=== PATIENT | female | born 1985 | race Hispanic/Latino ===

== ENCOUNTER → 2018-04-10 12:06 | Outpatient (CLI) | payer OTHER, MEDICAID, SELFPAY ==
--- NOTE | 2018-04-10 | DI.MRI.S_ITS ---
PROCEDURE: MR LUMBAR SPINE WO CON INDICATIONS: LOW BACK PAIN TECHNIQUE: Noncontrast sagittal T1 spin echo and T2 fast echo, sagittal STIR, axial T1 and T2 fast spin echo through the lumbar spine. In cases with scoliosis, additional coronal T2 fast spin echo may be performed. COMPARISON: None. FINDINGS: Image quality: Excellent. Alignment and Curvature: There is normal bony alignment. Bone Marrow: Reactive endplate change is noted adjacent to the L5-S1 disc. No acute vertebral body compression fractures. Spinal Cord: Conus medullaris terminates at the L1 level. Visualized cord demonstrates normal signal and size. Paraspinous Soft Tissues: No paravertebral masses. L1-L2: Normal appearance. L2-L3: Normal appearance. L3-L4: Normal appearance. L4-L5: Loss of disc signal. Mild, diffuse disc bulge. Mild bilateral facet hypertrophy. No central stenosis. No neural foraminal narrowing. No neural impingement. Focal high intensity zone noted in the posterior annulus compatible with the fissure. L5-S1: Loss of disc signal and height. Mild, diffuse disc bulge. Mild bilateral facet hypertrophy. No central stenosis. Moderate bilateral neural foraminal narrowing. No neural impingement. IMPRESSION: 1. Moderate L5-S1 degenerative disc disease. Mild L4-L5 degenerative disc disease. 2. Mild L4-L5 and L5-S1 facet arthropathy. 3. No central stenosis. 4. Moderate bilateral L5-S1 neural foraminal narrowing. 5. No neural impingement. 6. L4-L5 disc annulus fissure. Dictated by: Malina Nowak MD, PhD on 04/10/2018 at 16:36 Approved by: Malina Nowak MD, PhD on 04/10/2018 at 16:40
== END ==
PROVIDERS: Family Provider Nurse Practitioner Family; PCP Nurse Practitioner Family; Visit Provider Physical Medicine & Rehabilitation Pain Medicine
DX: M54.5 Low back pain (principal); M51.36 Other intervertebral disc degeneration, lumbar region; M47.816 Spondylosis without myelopathy or radiculopathy, lumbar region
CPT/HCPCS: 72148

== ENCOUNTER → 2018-10-08 13:17 | Outpatient (CLI) | payer OTHER, MEDICAID, SELFPAY ==
--- NOTE | 2018-10-08 | DI.MG.S_ITS ---
BILATERAL DIGITAL DIAGNOSTIC MAMMOGRAM 3D/2D: 10/08/2018 CLINICAL: Left breast discharge. No prior exams were available for comparison. The tissue of both breasts is extremely dense, which lowers the sensitivity of mammography. There are benign appearing punctate and round skin calcifications in the lower right breast at anterior depth, which are demonstrated as being within the skin on tomosynthesis slice /63 of the RSCCBTO series. There is no underlying mammographic abnormality. There is no left retroareolar mass or abnormality. IMPRESSION: INCOMPLETE: NEEDS ADDITIONAL IMAGING EVALUATION No mammographic abnormality to correlate with patient's reported left nipple discharge. Targeted diagnostic retroareolar ultrasound recommended for further evaluation, which will be performed immediately following this exam. This exam was interpreted at Station ID: [id number]. NOTE: For mammograms, a report in lay terms will be sent to the patient. Approximately 15% of breast malignancies will not be visualized mammographically. In the management of a palpable breast mass, a negative mammogram must not discourage biopsy of a clinically suspicious lesion. Electronically Signed By: Fco Myles M.D. ecl/:10/08/2018 14:36:56 letter sent: Additional Imaging Needed ACR BI-RADS Category 0: Incomplete [id number]
--- NOTE | 2018-10-08 | DI.US.S_ITS ---
LIMITED ULTRASOUND OF LEFT BREAST: 10/08/2018 CLINICAL: Nipple discharge, left breast, not bloody. Comparison is made to exam dated: 10/08/2018 [facility]. Real-time and Doppler ultrasound of the left breast retroareolar were performed. Bautista scale images of the real-time examination were reviewed. Targeted ultrasound of the left nipple and retroareolar region demonstrates no abnormality or mass. There is no focal duct dilitation. IMPRESSION: NEGATIVE 1) No sonographic abnormality of the left nipple/retroareolar region to explain patient's reported nipple discharge. Recommend clinical follow-up with the patient's referring provider for further evaluation and management. A breast MRI can be considered if there is continued clinical concern. 2) No sonographic evidence of malignancy in the imaged portions of the left breast. Annual screening mammography beginning at age 40 is recommended, unless earlier high-risk screening is warranted due to individual patient risk factors for the development of breast malignancy. The patient is advised to monitor her breasts and to return sooner for re-evaluation should anything grow or change. This exam was interpreted at Station ID: [id number]. Electronically Signed By: Fco Myles M.D. ecl/:10/08/2018 18:39:47 letter sent: Clinical Evaluation Ultrasound BI-RADS: 1 Negative
== END ==
PROVIDERS: PCP Family Medicine; Visit Provider Family Medicine
DX: R92.8 Other abnormal and inconclusive findings on diagnostic imaging of breast (principal); N64.52 Nipple discharge; N64.3 Galactorrhea not associated with childbirth
CPT/HCPCS: 76642; 77066; G0279

== ENCOUNTER 2019-08-04 08:15 | Emergency (ER) | payer OTHER, MEDICAID, SELFPAY ==
[2019-08-04 08:30] VITALS: BP 109/78; PULSE 83; RESP 18; TEMP 36.7; O2SAT 100; BMI 25.6
--- NOTE | 2019-08-04 08:44 | ED.URI ---
HPI - URI/Sore Throat General Chief Complaint: Upper Respiratory Symptoms Stated Complaint: flu like symptoms throwing past 3 days Time Seen by Provider: 08/04/19 08:19 Source: patient Mode of arrival: Family Vehicle Limitations: no limitations History of Present Illness HPI Narrative: Patient comes emergency department complaining of diarrhea for the last 3 days and vomiting that started today. 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 She states a couple have had fevers and diarrhea recently. Patient denies any shortness of breath or cough. No rhinorrhea. No body aches. She states she has some abdominal cramping. No dysuria. Patient states she is otherwise healthy. She reports vomiting about 5 times overnight and this morning, and states she was feeling a little lightheaded. She was concerned that she may be dehydrated, which was what led her to come to the emergency department. No other complaints at this time. Related Data Home Medications Medication Instructions Recorded Confirmed alprazolam 0.25 mg PO 08/04/19 sertraline 50 mg PO 08/04/19 tizanidine [Zanaflex] 4 mg PO TID 08/04/19 08/04/19 tramadol 50 mg PO BID 08/04/19 08/04/19 trazodone 50 mg PO BEDTIME 08/04/19 08/04/19 Previous Rx's Medication Instructions Recorded ondansetron 4 mg PO Q6H PRN #10 tab 08/04/19 Allergies Allergy/AdvReac Type Severity Reaction Status Date / Time No Known Drug Allergies Allergy Verified 08/04/19 08:58 Review of Systems Constitutional Constitutional: Denies chills, Denies fatigue, Denies fever(s), Denies frequent falls, Denies lethargy and Denies weakness Eyes Eyes: Denies change in vision, Denies eye discharge, Denies irritation and Denies loss of vision ENT Ears, Nose, Mouth, and Throat: Denies change in voice, Denies dizziness, Denies neck pain, Denies sore throat and Denies throat swelling Cardiovascular Cardiovascular: Denies chest pain, Denies irregular heart rhythm, Reports lightheadedness, Denies palpitations, Denies dyspnea, Denies dyspnea on exertion and Denies orthopnea Respiratory Respiratory: Denies cough, Denies dyspnea, Denies dyspnea on exertion and Denies wheezing Gastrointestinal Gastrointestinal: Denies abdominal pain, Denies change in bowel habits, Reports diarrhea, Reports nausea and Reports vomiting Genitourinary Genitourinary: Denies hematuria, Denies flank pain, Denies urinary incontinence and Denies urinary urgency Musculoskeletal Musculoskeletal: Denies back pain, Denies muscle weakness, Denies neck pain, Denies numbness and Denies tingling Integumentary/Breasts Skin/Breast: Denies pruritus, Denies erythema, Denies rash and Denies wounds Neurologic Neurologic: Denies behavioral changes, Denies confusion, Denies dizziness, Denies frequent falls, Denies loss of vision, Denies numbness, Denies tingling and Denies weakness Psychiatric Psychiatric: Denies anxiety, Denies behavioral changes, Denies confusion, Denies depression, Denies homicidal ideation and Denies suicidal ideation Endocrine Endocrine: Denies fatigue, Denies flushing and Denies palpitations Hematologic/Lymphatic Hematologic/Lymphatic: Denies easy bruising Allergic/Immunologic Allergic/Immunologic: Denies urticaria, Denies throat swelling and Denies wheezing Patient History Medical History Degenerative disc disease (Acute) Depression (Acute) Surgical History No pertinent past surgical history (Acute) Social History Smoking Status: Former smoker alcohol intake frequency: 0-2 drinks per day Substance Use Type: marijuana Exam Initial Vital Signs Initial Vital Signs: Vital Signs Temperature 98.1 F 08/04/19 08:30 Pulse Rate 83 08/04/19 08:30 Respiratory Rate 18 08/04/19 08:30 Blood Pressure 109/78 08/04/19 08:30 Pulse Oximetry 100 08/04/19 08:30 Const General: cooperative and well developed Nutritional Appearance: well nourished Orientation: alert, awake, oriented x3 and not confused [facility] Head: normocephalic and atraumatic Ears: external ears normal Nose: external nose normal and No nasal discharge Face and sinus: face symmetric and No dry mucous membranes Mouth: oral mucosae normal and moist mucous membranes Teeth and gingiva: dentition normal Eyes General: appearance normal, both eyes and all related structures Eyelids: eyelids normal Conjunctivae: conjunctivae normal Sclera: sclerae normal Pupils: PERRL EOM: EOM intact bilaterally Neck Neck: normal visual inspection, trachea midline, No lymphadenopathy, No midline deformity and No JVD Lymphatic: No lymphedema Chest Chest: normal inspection of the chest Resp Effort & Inspection: normal respiratory effort, able to speak in complete sentences, no respiratory distress and no use of accessory muscles Auscultation: clear to auscultation bilaterally, no rales, no rhonchi and no wheezes Cardio Rate: regular rate Rhythm: regular rhythm Heart Sounds: no click, no gallops, no murmurs and no rubs Pulses: normal peripheral pulses GI Inspection: non-distended Palpation: soft, no hepatosplenomegaly, No guarding, No pulsatile mass and No tender Back/Spine/Pelvis Back: No CVA tenderness Cervical Spine: cervical ROM normal and No pain with cervical ROM Thoracic/Lumbar Spine: thoracic and lumbar spine normal to inspection Skin General: no rashes or lesions noted, No jaundice and No petechiae Neuro General: alert, oriented x3, gait normal and no focal motor deficits Speech: speech normal Extrem General: full ROM, no clubbing, cyanosis or edema, no pedal edema and no calf tenderness Psych Appearance: well kempt Mental Status: mental status grossly normal Attitude: cooperative Thought Content: normal and suicidality Judgment: judgment good Course Course Course Narrative: Patient was worked up with urinalysis and test and treated with IV fluids and Zofran, and was found to be feeling quite a bit better after this. Urinalysis and test were unremarkable. I did not feel patient needed further workup at this time, as she had clearly been exposed to similar symptoms at work and was neither unstable nor febrile. We have discussed home management of the symptoms and I have prescribed antiemetics for her. We have discussed the usual indications for return. Orders Ordered: Discontinued Medications Sodium Chloride (Normal Saline 0.9%) 1,000 mls @ 1,000 mls/hr IV BOLUS ONE Stop: 08/04/19 09:43 Last Admin: 08/04/19 09:16 Dose: 1,000 mls/hr Documented by: CRISTEL Ondansetron HCl (Zofran) 4 mg IV NOW ONE Stop: 08/04/19 08:45 Last Admin: 08/04/19 09:16 Dose: 4 mg Documented by: CRISTEL Vital Signs Vital signs: Vital Signs - 8 hr 08/04/19 08:30 Temperature 98.1 F Pulse Rate 83 Respiratory Rate 18 Blood Pressure 109/78 Pulse Oximetry 100 MDM - URI/Sore Throat Medical Records Attestation: I reviewed the patient's medical records. Lab Data Attestation: I reviewed the patient's lab results. Labs: Point of Care Testing Test Results Negative Urine Dip Bedside Urine Glucose Negative Bedside Urine Bilirubin - Negative Bedside Urine Ketone - Negative Urine Specific [place] 1.010 Bedside Urine Occult Blood - Negative Bedside Urine pH 7.5 Bedside Urine Protein - Negative Bedside Urine Urobilinogen - Negative Bedside Urine Nitrite - Negative Bedside Urine Leukocytes - Negative Esterase Discharge Plan Departure Patient Disposition: Home Clinical Impression: Gastroenteritis Discharge Date/Time: 08/04/19 10:15 Instructions: DI for Viral Gastroenteritis -- Adult Prescriptions: New ondansetron 4 mg tablet,disintegrating 4 mg PO Q6H PRN (Reason: nausea and vomiting) Qty: 10 RF: 0 No Action alprazolam 0.25 mg tablet 0.25 mg PO RF: 0 tizanidine [Zanaflex] 4 mg tablet 4 mg PO TID RF: 0 tramadol 50 mg tablet 50 mg PO BID RF: 0 trazodone 50 mg tablet 50 mg PO BEDTIME RF: 0 sertraline 50 mg tablet 50 mg PO RF: 0 Referrals: Terrance Randall DO [Primary Care Provider] - Stand Alone Forms: Work/School Release
[2019-08-04] MEDS: SODIUM CHLORIDE 0.9% 1,000 ML 1000 ML IV (09:16)
[2019-08-04] MEDS: ONDANSETRON 4 MG/2 ML INJ IV (09:16)
[2019-08-04 09:56] VITALS: BP 104/79; PULSE 67; RESP 16; O2SAT 99
--- NOTE | 2019-09-01 19:41 | PC.NURSE ---
Patient received 1L NS which was started at 0844 on 08/04/19. Total of 1LNormal Saline infused and completed at 0943 on 08/04/19.
== END 2019-08-04 10:15 | disposition home or self-care (01) ==
PROVIDERS: Emergency Provider Emergency Medicine; PCP Family Medicine
DX: K52.9 Noninfective gastroenteritis and colitis, unspecified (principal)
CPT/HCPCS: 81003; 81025; 96361; 96374; 99283; 99284; J2405

== ENCOUNTER 2019-09-22 16:58 | Emergency (ER) | payer OTHER, MEDICAID, SELFPAY ==
[2019-09-22 17:18] VITALS: BP 145/78; PULSE 75; RESP 16; TEMP 37; O2SAT 99; BMI 26.9
--- NOTE | 2019-09-22 17:48 | DI.CT.S_ITS ---
PROCEDURE: CT ABDOMEN PELVIS W CON INDICATIONS: RLQ abd pain TECHNIQUE: After the administration of intravenous contrast, 5 mm thick sections acquired from the diaphragm to the symphysis. 5 mm coronal and sagittal reformats were acquired. For radiation dose reduction, the following was used: automated exposure control, adjustment of mA and/or kV according to patient size. COMPARISON: None. FINDINGS: Image quality: Excellent. ABDOMEN: Lung bases: Lung bases are clear. Heart size is normal. Solid organs: Liver is normal in size and enhancement. Gallbladder appears normal. Biliary system is non dilated. Pancreas enhances normally. Spleen is normal in size and enhancement. No adrenal nodules. Kidneys demonstrate normal size and enhancement, without hydronephrosis. Peritoneum and bowel: Bowel loops demonstrate normal wall thickness and caliber. No free fluid or air. Nodes and vessels: No retroperitoneal or mesenteric adenopathy by size criteria. Aorta and inferior vena cava are normal in size. Miscellaneous: No ventral hernias. PELVIS: Genitourinary: Bladder wall thickness is normal. Miscellaneous: No inguinal hernias or adenopathy. Bones: No suspicious bony lesions. No vertebral body compression fractures. IMPRESSION: No sign of ectopic or hemoperitoneum. Source of right lower quadrant abdominal pain is not identified. A normal or abnormal appendix could not be located. Dictated by: Tramaine Leone M.D. on 09/22/2019 at 19:07 Approved by: Tramaine Leone M.D. on 09/22/2019 at 19:08
--- NOTE | 2019-09-22 17:51 | ED.FEMALEGU ---
HPI - Female Genitourinary <Slime Snyder MD - Last Filed: 09/22/19 18:51> General Chief complaint: OB/Uterine Contractions Stated complaint: surgery on 8th ectopic preg, abdominal pain Time Seen by Provider: 09/22/19 17:07 Source: patient Mode of arrival: Ambulatory Limitations: no limitations History of Present Illness HPI Narrative: Patient comes emergency department complaining of ongoing right lower quadrant pain for the past couple of weeks. Patient states that she was found to have an ectopic which was thought to be on the right, but turned out to be on the left. The patient states that the mistake was not caught until she was already in surgery for a laparoscopic salpingectomy. At that time, her surgeon found that the ectopic was on the left and patient's opted to have nothing further done surgically and instead, for patient to have methotrexate. The reason for this is that the patient has had a prior ectopic on the right and has tubal scarring and a partial salpingectomy on that side. The patient states that her right-sided pain is been ongoing. She has been receiving methotrexate, and states that her OB has told her that her HCG levels are coming down. Related Data Home Medications Medication Instructions Recorded Confirmed alprazolam 0.25 mg PO 08/04/19 tizanidine [Zanaflex] 4 mg PO TID 08/04/19 08/04/19 tramadol 50 mg PO BID 08/04/19 09/22/19 trazodone 50 mg PO BEDTIME 08/04/19 08/04/19 oxycodone-acetaminophen 1 tab PO Q6H PRN 09/22/19 09/22/19 sertraline 100 mg PO DAILY 09/22/19 09/22/19 Previous Rx's Medication Instructions Recorded ondansetron 4 mg PO Q6H PRN #10 tab 08/04/19 hydrocodone-acetaminophen [[place]] 1 tab PO Q6H PRN #10 tab 09/22/19 Allergies Allergy/AdvReac Type Severity Reaction Status Date / Time No Known Drug Allergies Allergy Verified 09/22/19 17:18 Review of Systems <Slime Snyder MD - Last Filed: 09/22/19 18:51> Review of Systems ROS Unobtainable: All systems reviewed & are unremarkable except as noted in HPI and below Constitutional Constitutional: Denies chills, Denies fatigue, Denies fever(s), Denies frequent falls, Denies lethargy and Denies weakness Eyes Eyes: Denies change in vision, Denies eye discharge, Denies irritation and Denies loss of vision ENT Ears, Nose, Mouth, and Throat: Denies change in voice, Denies dizziness, Denies neck pain, Denies sore throat and Denies throat swelling Cardiovascular Cardiovascular: Denies chest pain, Denies irregular heart rhythm, Denies lightheadedness, Denies palpitations, Denies dyspnea, Denies dyspnea on exertion and Denies orthopnea Respiratory Respiratory: Denies cough, Denies dyspnea, Denies dyspnea on exertion and Denies wheezing Gastrointestinal Gastrointestinal: Reports abdominal pain, Denies change in bowel habits, Denies diarrhea, Denies nausea and Denies vomiting Genitourinary Genitourinary: Denies hematuria, Denies flank pain, Denies urinary incontinence and Denies urinary urgency Musculoskeletal Musculoskeletal: Denies back pain, Denies muscle weakness, Denies neck pain, Denies numbness and Denies tingling Integumentary/Breasts Skin/Breast: Denies pruritus, Denies erythema, Denies rash and Denies wounds Neurologic Neurologic: Denies behavioral changes, Denies confusion, Denies dizziness, Denies frequent falls, Denies loss of vision, Denies numbness, Denies tingling and Denies weakness Psychiatric Psychiatric: Denies anxiety, Denies behavioral changes, Denies confusion, Denies depression, Denies homicidal ideation and Denies suicidal ideation Endocrine Endocrine: Denies fatigue, Denies flushing and Denies palpitations Hematologic/Lymphatic Hematologic/Lymphatic: Denies easy bruising Allergic/Immunologic Allergic/Immunologic: Denies urticaria, Denies throat swelling and Denies wheezing Patient History <Slime Snyder MD - Last Filed: 09/22/19 18:51> Medical History (Updated 09/22/19 @ 21:41 by Delores Bolden DO) Degenerative disc disease (Acute) Depression (Acute) Ectopic (Acute) Surgical History No pertinent past surgical history (Acute) alcohol intake frequency: 0-2 drinks per day Substance Use Type: marijuana Exam <Slime Snyder MD - Last Filed: 09/22/19 18:51> Initial Vital Signs Initial Vital Signs: Vital Signs Temperature 98.6 F 09/22/19 17:18 Pulse Rate 75 09/22/19 17:18 Respiratory Rate 16 09/22/19 17:18 Blood Pressure 145/78 H 09/22/19 17:18 Pulse Oximetry 99 09/22/19 17:18 Const General: cooperative and well developed Nutritional Appearance: well nourished Orientation: alert, awake, oriented x3 and not confused [facility] Head: normocephalic and atraumatic Ears: external ears normal Nose: external nose normal and No nasal discharge Face and sinus: face symmetric and No dry mucous membranes Mouth: oral mucosae normal and moist mucous membranes Teeth and gingiva: dentition normal Eyes General: appearance normal, both eyes and all related structures Eyelids: eyelids normal Conjunctivae: conjunctivae normal Sclera: sclerae normal Pupils: PERRL EOM: EOM intact bilaterally Neck Neck: normal visual inspection, trachea midline, No lymphadenopathy, No midline deformity and No JVD Lymphatic: No lymphedema Chest Chest: normal inspection of the chest Resp Effort & Inspection: normal respiratory effort, able to speak in complete sentences, no respiratory distress and no use of accessory muscles Auscultation: clear to auscultation bilaterally, no rales, no rhonchi and no wheezes Cardio Rate: regular rate Rhythm: regular rhythm Heart Sounds: no click, no gallops, no murmurs and no rubs Pulses: normal peripheral pulses GI Inspection: non-distended Palpation: soft, no hepatosplenomegaly, No guarding, No pulsatile mass and tender (mild, bilateral lower abd) Other: Incision sites healing well. No erythema, wound dehiscence, drainage, or induration. Back/Spine/Pelvis Back: No CVA tenderness Cervical Spine: cervical ROM normal and No pain with cervical ROM Thoracic/Lumbar Spine: thoracic and lumbar spine normal to inspection Skin General: no rashes or lesions noted, No jaundice and No petechiae Neuro General: alert, oriented x3, gait normal and no focal motor deficits Speech: speech normal Extrem General: full ROM, no clubbing, cyanosis or edema, no pedal edema and no calf tenderness Psych Appearance: well kempt Mental Status: mental status grossly normal Attitude: cooperative Thought Content: normal and suicidality Judgment: judgment good <Delores Bolden, DO - Last Filed: 09/22/19 22:29> Initial Vital Signs Initial Vital Signs: Vital Signs Temperature 98.6 F 09/22/19 17:18 Pulse Rate 75 09/22/19 17:18 Respiratory Rate 16 09/22/19 17:18 Blood Pressure 145/78 H 09/22/19 17:18 Pulse Oximetry 99 09/22/19 17:18 Course <Slime Snyder MD - Last Filed: 09/22/19 18:51> Course Course Narrative: Pt was worked up with labs, UA, and CT abd/pelvis. She was treated symptomatically with IV Toradol and Dilaudid. She was signed out to Dr. Bolden, pending work-up and disposition. Orders Ordered: ED Orders 09/22/19 17:25 Complete Blood Count AUTO DIFF Stat Comprehensive Metabolic Panel Stat HCG Quantitative Stat Urinalysis and Microscopic Stat 09/22/19 17:48 CT abdomen pelvis w con Stat 09/22/19 19:51 US pelvic complete Stat Discontinued Medications Hydrocodone Bitart/Acetaminophen (Vicodin 5/325 Prepack) 1 bottle MISC SEEINSTR ONE Stop: 09/22/19 22:06 Last Admin: 09/22/19 22:09 Dose: 1 bottle Documented by: KBROTEM Hydromorphone HCl (Dilaudid) 0.5 mg IV NOW ONE Stop: 09/22/19 17:52 Last Admin: 09/22/19 18:18 Dose: 0.5 mg Documented by: TARSHA Hydromorphone HCl (Dilaudid) 0.5 mg IV NOW ONE Stop: 09/22/19 19:52 Last Admin: 09/22/19 19:57 Dose: 0.5 mg Documented by: MAXIMINO Sodium Chloride (Normal Saline 0.9%) 1,000 mls @ 1,000 mls/hr IV BOLUS ONE Stop: 09/22/19 18:47 Last Infusion: 09/22/19 19:56 Dose: 0 mls/hr Documented by: Admin: 09/22/19 18:18 Dose: 1,000 mls/hr Documented by: TARSHA Ketorolac Tromethamine (Toradol) 30 mg IV NOW ONE Stop: 09/22/19 17:52 Last Admin: 09/22/19 18:18 Dose: 30 mg Documented by: TARSHA Vital Signs Vital signs: Vital Signs - 8 hr 09/22/19 17:18 09/22/19 18:11 09/22/19 21:18 Temperature 98.6 F Pulse Rate 75 70 83 Respiratory Rate 16 16 16 Blood Pressure 145/78 H Blood Pressure [Left Arm] 113/65 108/69 Pulse Oximetry 99 97 100 <Delores Bolden, DO - Last Filed: 09/22/19 22:29> Orders Ordered: ED Orders 09/22/19 17:25 Complete Blood Count AUTO DIFF Stat Comprehensive Metabolic Panel Stat HCG Quantitative Stat Urinalysis and Microscopic Stat 09/22/19 17:48 CT abdomen pelvis w con Stat 09/22/19 19:51 US pelvic complete Stat Discontinued Medications Hydrocodone Bitart/Acetaminophen (Vicodin 5/325 Prepack) 1 bottle MISC SEEINSTR ONE Stop: 09/22/19 22:06 Last Admin: 09/22/19 22:09 Dose: 1 bottle Documented by: KBROTEM Hydromorphone HCl (Dilaudid) 0.5 mg IV NOW ONE Stop: 09/22/19 17:52 Last Admin: 09/22/19 18:18 Dose: 0.5 mg Documented by: TARSHA Hydromorphone HCl (Dilaudid) 0.5 mg IV NOW ONE Stop: 09/22/19 19:52 Last Admin: 09/22/19 19:57 Dose: 0.5 mg Documented by: MAXMIINO Sodium Chloride (Normal Saline 0.9%) 1,000 mls @ 1,000 mls/hr IV BOLUS ONE Stop: 09/22/19 18:47 Last Infusion: 09/22/19 19:56 Dose: 0 mls/hr Documented by: Admin: 09/22/19 18:18 Dose: 1,000 mls/hr Documented by: TARSHA Ketorolac Tromethamine (Toradol) 30 mg IV NOW ONE Stop: 09/22/19 17:52 Last Admin: 09/22/19 18:18 Dose: 30 mg Documented by: TARSHA Vital Signs Vital signs: Vital Signs - 8 hr 09/22/19 17:18 09/22/19 18:11 09/22/19 21:18 Temperature 98.6 F Pulse Rate 75 70 83 Respiratory Rate 16 16 16 Blood Pressure 145/78 H Blood Pressure [Left Arm] 113/65 108/69 Pulse Oximetry 99 97 100 MDM - Female Genitourinary <Slime Snyder MD - Last Filed: 09/22/19 18:51> Medical Records Attestation: I reviewed the patient's medical records. Lab Data Result diagrams: 09/22/19 17:25 09/22/19 17:25 Labs: Lab Results 09/22/19 09/22/19 09/22/19 Range/Units 17:25 17:25 17:25 WBC 7.3 (4.5-11.0) X10^3/uL RBC 4.16 (4.0-5.2) X10^6/uL Hgb 11.9 L (12.0-16.0) g/dL Hct 35.7 L (36-46) % MCV 85.8 (80-100) fL MCH 28.6 (26-34) PG MCHC 33.4 (30-36) % RDW 15.9 H (11.6-14.8) % Plt Count 257 (150-400) X10^3/uL Neut % (Auto) 68.7 (50-75) % Lymph % (Auto) 24.0 L (25-40) % [place] % (Auto) 6.4 (3-14) % Eos % (Auto) 0.6 L (2-4) % Baso % (Auto) 0.3 (0-2) % Neut # (Auto) 5000 (0548-9119) /uL Lymph # (Auto) 1700 (2426-0767) /uL [place] # (Auto) 500 (0-900) /uL Eos # (Auto) 0 (0-450) /uL Baso # (Auto) 0 (0-100) /uL Sodium 138 (137-145) mmol/L Potassium 3.5 (3.4-5.1) mmol/L Chloride 99 (98-107) mmol/L Carbon Dioxide 31 (22-32) mmol/L BUN 8 (7-17) mg/dL Creatinine 0.40 L (0.52-1.04) mg/dL Estimated GFR > 60.0 (>60) mL/min BUN/Creatinine Ratio 20.0 (6-22) Glucose 95 (70-100) mg/dL Calcium 9.4 (8.4-10.2) mg/dL Total Bilirubin 0.4 (0.2-1.3) mg/dL AST 38 H (14-36) IU/L ALT 25 (<35) IU/L Alkaline Phosphatase 77 (38-126) U/L Total Protein 7.9 (6.3-8.2) g/dL Albumin 4.7 (3.5-5.0) g/dL Globulin 3.2 (1.7-4.1) g/dL Albumin/Globulin Ratio 1.5 (1.0-2.8) HCG, Quant 92.45 mIU/mL Urine Color Yellow Urine Appearance Clear Urine pH 7.0 (4.5-8.0) Ur Specific [place] 1.010 (1.000-1.035) Urine Protein Negative (Negative) Urine Glucose (UA) Negative (Negative) g/dL Urine Ketones Negative (NEGATIVE) Urine Occult Blood Negative (Negative) Urine Nitrate Negative (Negative) Urine Bilirubin Negative (NEGATIVE) Urine Urobilinogen 0.2 (0.2) E.U./dL Ur Leukocyte Esterase Negative (NEGATIVE) Urine RBC None seen (0-5/HPF) Urine WBC None seen (0-5/HPF) Ur Squamous Epith Cells 0-1 /hpf (0-5/HPF) Amorphous Sediment 1+ Urine Bacteria None seen (None) Ur Culture Indicated? Cult not indicated <Delores Bolden, DO - Last Filed: 09/22/19 22:29> Lab Data Attestation: I reviewed the patient's lab results. Labs: Lab Results 09/22/19 09/22/19 09/22/19 Range/Units 17:25 17:25 17:25 WBC 7.3 (4.5-11.0) X10^3/uL RBC 4.16 (4.0-5.2) X10^6/uL Hgb 11.9 L (12.0-16.0) g/dL Hct 35.7 L (36-46) % MCV 85.8 (80-100) fL MCH 28.6 (26-34) PG MCHC 33.4 (30-36) % RDW 15.9 H (11.6-14.8) % Plt Count 257 (150-400) X10^3/uL Neut % (Auto) 68.7 (50-75) % Lymph % (Auto) 24.0 L (25-40) % [place] % (Auto) 6.4 (3-14) % Eos % (Auto) 0.6 L (2-4) % Baso % (Auto) 0.3 (0-2) % Neut # (Auto) 5000 (2551-5320) /uL Lymph # (Auto) 1700 (4352-4275) /uL [place] # (Auto) 500 (0-900) /uL Eos # (Auto) 0 (0-450) /uL Baso # (Auto) 0 (0-100) /uL Sodium 138 (137-145) mmol/L Potassium 3.5 (3.4-5.1) mmol/L Chloride 99 (98-107) mmol/L Carbon Dioxide 31 (22-32) mmol/L BUN 8 (7-17) mg/dL Creatinine 0.40 L (0.52-1.04) mg/dL Estimated GFR > 60.0 (>60) mL/min BUN/Creatinine Ratio 20.0 (6-22) Glucose 95 (70-100) mg/dL Calcium 9.4 (8.4-10.2) mg/dL Total Bilirubin 0.4 (0.2-1.3) mg/dL AST 38 H (14-36) IU/L ALT 25 (<35) IU/L Alkaline Phosphatase 77 (38-126) U/L Total Protein 7.9 (6.3-8.2) g/dL Albumin 4.7 (3.5-5.0) g/dL Globulin 3.2 (1.7-4.1) g/dL Albumin/Globulin Ratio 1.5 (1.0-2.8) HCG, Quant 92.45 mIU/mL Urine Color Yellow Urine Appearance Clear Urine pH 7.0 (4.5-8.0) Ur Specific [place] 1.010 (1.000-1.035) Urine Protein Negative (Negative) Urine Glucose (UA) Negative (Negative) g/dL Urine Ketones Negative (NEGATIVE) Urine Occult Blood Negative (Negative) Urine Nitrate Negative (Negative) Urine Bilirubin Negative (NEGATIVE) Urine Urobilinogen 0.2 (0.2) E.U./dL Ur Leukocyte Esterase Negative (NEGATIVE) Urine RBC None seen (0-5/HPF) Urine WBC None seen (0-5/HPF) Ur Squamous Epith Cells 0-1 /hpf (0-5/HPF) Amorphous Sediment 1+ Urine Bacteria None seen (None) Ur Culture Indicated? Cult not indicated Imaging Data CT scan - abdomen: Radiologist's impression: PROCEDURE: CT ABDOMEN PELVIS W CON INDICATIONS: RLQ abd pain TECHNIQUE: After the administration of intravenous contrast, 5 mm thick sections acquired from the diaphragm to the symphysis. 5 mm coronal and sagittal reformats were acquired. For radiation dose reduction, the following was used: automated exposure control, adjustment of mA and/or kV according to patient size. COMPARISON: None. FINDINGS: Image quality: Excellent. ABDOMEN: Lung bases: Lung bases are clear. Heart size is normal. Solid organs: Liver is normal in size and enhancement. Gallbladder appears normal. Biliary system is non dilated. Pancreas enhances normally. Spleen is normal in size and enhancement. No adrenal nodules. Kidneys demonstrate normal size and enhancement, without hydronephrosis. Peritoneum and bowel: Bowel loops demonstrate normal wall thickness and caliber. No free fluid or air. Nodes and vessels: No retroperitoneal or mesenteric adenopathy by size criteria. Aorta and inferior vena cava are normal in size. Miscellaneous: No ventral hernias. PELVIS: Genitourinary: Bladder wall thickness is normal. Miscellaneous: No inguinal hernias or adenopathy. Bones: No suspicious bony lesions. No vertebral body compression fractures. IMPRESSION: No sign of ectopic or hemoperitoneum. Source of right lower quadrant abdominal pain is not identified. A normal or abnormal appendix could not be located. Dictated by: Tramaine Leone M.D. on 09/22/2019 at 19:07 pelvic US: Radiologist's impression: PROCEDURE: US PELVIC COMPLETE INDICATIONS: RIGHT PELVIC PAIN; CURRENT LEFT TUBAL ECTOPIC TECHNIQUE: Real-time scanning was performed of the pelvic organs, with image documentation. Additional endovaginal scanning was necessary due to incomplete visualization of the adnexal and endometrial structures by transabdominal scanning. COMPARISON: [facility], CT, CT ABDOMEN PELVIS W CON, 09/22/2019, 18:48. [facility], US, PELVIC COMPLETE, 12/20/2009, 15:12. FINDINGS: Transabdominal scanning: Limited scanning through the kidneys shows no hydronephrosis. No pathologic free abdominal or pelvic fluid. Endovaginal scanning: Uterus: Uterus is normal in size at 3.9 x 4.9 x 8.0 cm, anteverted. The endometrium measures 7.5 mm in combined thickness. Along the borders of the uterus no abnormal free fluid or hemoperitoneum is found. No visualized evidence of left sided reported tubal mass/ectopic is found. No right-sided source of pain is seen. Ovaries: Right and left ovaries appear normal, measuring 3.0 x 1.2 x 3.7 cm on the right and 1.9 x 2.5 x 2.5 cm on the left. Impression: There is no source of right sided pain and no current sonographic evidence of left sided ectopic . Reportedly the patient received methotrexate approximately 10 days ago, as treatment for ectopic . Dictated by: Tramaine Leone M.D. on 09/22/2019 at 20:49 MDM Narrative Medical decision making narrative: Patient signed out to me by Dr. Snyder waiting blood work and CT results. I've seen and evaluated patient myself. She continues to have some mild right lower quadrant tenderness no left lower quadrant tenderness. Her hCG has decreased today 92 previously on September 12 it was 288 she received her 2nd dose of methotrexate 2 days ago. She has continue to have right lower quadrant pain CT is negative. She has a previous ectopic in that area, and a recent laparoscopic procedure for left-sided ectopic. She is still mildly tender on the right side requesting more pain medication. Will get a pelvic ultrasound and is another dose of Dilaudid. Ultrasound is negative. At this time no cause of right lower quadrant pain. She has follow-up with her OBGYN. Left sided ectopic is not seen on the ultrasound. Discharge Plan Departure Patient Disposition: Home Clinical Impression: Abdominal pain Qualifiers: Abdominal location: right lower quadrant Qualified Code(s): R10.31 - Right lower quadrant pain Discharge Date/Time: 09/22/19 22:14 Activity Restrictions/Additional Instructions: *You have been diagnosed with right lower quadrant pain *What to do: At this time it is unclear what is causing her right lower quadrant pain CT ultrasound are negative. HCG today is 92, no signs of ectopic on the left on ultrasound or CT. *Continue to take medications as directed [place] 1 tablet every 6 hours if needed for severe pain *Follow up with your primary care provider in 2-3 days *Return to ER if you should have increasing pain fevers persistent vomiting or any new, worsening or concerning symptoms CONTROLLED SUBSTANCE DISCHARGE (Narcotoic/benzodiazepine/Flexeril/Phenergan) 1. You have been prescribed narcotic medications, it does have acetaminophen/Tylenol/paracetamol in it so do not take extra Tylenol or Tylenol containing products 2. Please understand that we cannot provide further refills of narcotics, benzodiazepines or controlled substances through the ED and her pain management will need to be through your provider. 3. While on these medications you cannot drive or operate heavy machinery. 4. You cannot sign legal documents or perform any duties such as this. 5. As long as you're taking opiate pain medications he should also be taking a stool softener such as Colace, Dulcolax, MiraLAX or prune juice, to help avoid constipation. Prescriptions: New hydrocodone-acetaminophen [[place]] 5-325 mg tablet 1 tab PO Q6H PRN (Reason: pain) Qty: 10 RF: 0 No Action alprazolam 0.25 mg tablet 0.25 mg PO RF: 0 tizanidine [Zanaflex] 4 mg tablet 4 mg PO TID RF: 0 tramadol 50 mg tablet 50 mg PO BID RF: 0 trazodone 50 mg tablet 50 mg PO BEDTIME RF: 0 ondansetron 4 mg tablet,disintegrating 4 mg PO Q6H PRN (Reason: nausea and vomiting) Qty: 10 RF: 0 sertraline 100 mg tablet 100 mg PO DAILY RF: 0 oxycodone-acetaminophen 5-325 mg tablet 1 tab PO Q6H PRN (Reason: pain) RF: 0 Referrals: Terrance Randall DO [Primary Care Provider] -
[2019-09-22 18:05] LABS: Add Manual Diff / Slide Review NO; Basophils Absolute Auto 0 /uL (0-100); Basophils Percent Auto 0.3 % (0-2); Eosinophils Absolute Auto 0 /uL (0-450); Eosinophils Percent Auto 0.6 % (2-4); Hematocrit 35.7 % (36-46); Hemoglobin 11.9 g/dL (12.0-16.0); Lymphocytes Absolute Auto 1700 /uL (1100-4500); Mean Corpuscular HGB Conc 33.4 % (30-36); Mean Corpuscular Hemoglobin 28.6 PG (26-34); Mean Corpuscular Volume 85.8 fL (80-100); Monocytes Absolute Auto 500 /uL (0-900); Monocytes Percent Auto 6.4 % (3-14); Neutrophils Absolute Auto 5000 /uL (1500-7000); Neutrophils Percent Auto 68.7 % (50-75); Platelet Count 257 X10^3/uL (150-400); Red Blood Cell Count 4.16 X10^6/uL (4.0-5.2); Red Cell Distribution Width 15.9 % (11.6-14.8); White Blood Cell Count 7.3 X10^3/uL (4.5-11.0)
[2019-09-22 18:11] VITALS: BP 113/65; PULSE 70; RESP 16; O2SAT 97
[2019-09-22 18:13] LABS: Alanine Aminotransferase 25 IU/L (<35); Albumin 4.7 g/dL (3.5-5.0); Albumin Globulin Ratio 1.5 (1.0-2.8); Alkaline Phosphatase 77 U/L (38-126); Aspartate Aminotransferase 38 IU/L (14-36); Bilirubin Total 0.4 mg/dL (0.2-1.3); Blood Urea Nitrogen 8 mg/dL (7-17); Calcium 9.4 mg/dL (8.4-10.2); Carbon Dioxide 31 mmol/L (22-32); Chloride 99 mmol/L (98-107); Estimated Glomerular Filt Rate > 60.0 mL/min (>60); Globulin 3.2 g/dL (1.7-4.1); Glucose 95 mg/dL (70-100); HEMOLYSIS < 15 (0-50); Potassium 3.5 mmol/L (3.4-5.1); Sodium 138 mmol/L (137-145); Total Protein 7.9 g/dL (6.3-8.2)
[2019-09-22] MEDS: SODIUM CHLORIDE 0.9% 1,000 ML 1000 ML IV (18:18)
[2019-09-22] MEDS: KETOROLAC 60 MG/2 ML VIAL 30 MG IV (18:18)
[2019-09-22] MEDS: HYDROMORPHONE 0.5 MG INJ IV ×2 (18:18→19:57)
[2019-09-22 18:29] LABS: HCG Quantitative /Beta subunit 92.45 mIU/mL
--- NOTE | 2019-09-22 19:51 | DI.US.S_ITS ---
PROCEDURE: US PELVIC COMPLETE INDICATIONS: RIGHT PELVIC PAIN; CURRENT LEFT TUBAL ECTOPIC TECHNIQUE: Real-time scanning was performed of the pelvic organs, with image documentation. Additional endovaginal scanning was necessary due to incomplete visualization of the adnexal and endometrial structures by transabdominal scanning. COMPARISON: [facility], CT, CT ABDOMEN PELVIS W CON, 09/22/2019, 18:48. [facility], US, PELVIC COMPLETE, 12/20/2009, 15:12. FINDINGS: Transabdominal scanning: Limited scanning through the kidneys shows no hydronephrosis. No pathologic free abdominal or pelvic fluid. Endovaginal scanning: Uterus: Uterus is normal in size at 3.9 x 4.9 x 8.0 cm, anteverted. The endometrium measures 7.5 mm in combined thickness. Along the borders of the uterus no abnormal free fluid or hemoperitoneum is found. No visualized evidence of left sided reported tubal mass/ectopic is found. No right-sided source of pain is seen. Ovaries: Right and left ovaries appear normal, measuring 3.0 x 1.2 x 3.7 cm on the right and 1.9 x 2.5 x 2.5 cm on the left. Impression: There is no source of right sided pain and no current sonographic evidence of left sided ectopic . Reportedly the patient received methotrexate approximately 10 days ago, as treatment for ectopic . Dictated by: Tramaine Leone M.D. on 09/22/2019 at 20:49 Approved by: Tramaine Leone M.D. on 09/22/2019 at 20:55
[2019-09-22 20:46] LABS: Appearance Urine UA CLEAR; Bacteria Urine None Seen; Bilirubin Urine UA NEGATIVE (NEGATIVE); Color Urine UA YELLOW; Glucose Urine UA NEGATIVE (Negative); Ketones Urine UA NEGATIVE (NEGATIVE); Leukocyte Esterase Urine UA NEGATIVE (NEGATIVE); Nitrite Urine UA NEGATIVE (Negative); Occult Blood Urine UA NEGATIVE (Negative); Protein Urine UA NEGATIVE (Negative); RBC Urine None Seen (0-5/HPF); Urobilinogen Urine UA 0.2 E.U./dL (0.2); WBC Urine None Seen (0-5/HPF)
[2019-09-22 20:54] LABS: Amorphous Sediment Urine 1+; Culture Indicated Urine Cult Not Indicated; Squamous Epithelial Cell Urine 0-1 /HPF (0-5/HPF)
[2019-09-22 21:18] VITALS: BP 108/69; PULSE 83; RESP 16; O2SAT 100
[2019-09-22] MEDS: HYDROCODONE/ACET 5/325 PREPACK 1 BOTTLE MISC (22:09)
== END 2019-09-22 22:14 | disposition home or self-care (01) ==
PROVIDERS: Emergency Medicine; Emergency Provider Emergency Medicine; PCP Family Medicine
DX: R10.31 Right lower quadrant pain (principal)
CPT/HCPCS: 36415; 74177; 76830; 76856; 80053; 81001; 84702; 85025; 96361; 96374; 96375; 96376; 99284; 99285; J1170; J1885; Q9967

== ENCOUNTER 2019-12-13 10:29 | Emergency (ER) | payer OTHER, MEDICAID, SELFPAY ==
[2019-12-13 10:41] VITALS: BP 111/64; PULSE 70; RESP 16; TEMP 36.6; O2SAT 98
--- NOTE | 2019-12-13 11:02 | DI.US.S_ITS ---
PROCEDURE: US PELVIC COMPLETE INDICATIONS: RLQ PAIN. No APPENDIX, NOT PREG, ? OVARY TECHNIQUE: Real-time scanning was performed of the pelvic organs, with image documentation. Additional endovaginal scanning was necessary due to incomplete visualization of the adnexal and endometrial structures by transabdominal scanning. COMPARISON: [facility], CT, CT ABDOMEN PELVIS W CON, 09/22/2019, 18:48. [facility], US, US PELVIC COMPLETE, 09/22/2019, 20:23. FINDINGS: Transabdominal scanning: Limited scanning through the kidneys shows no hydronephrosis. No pathologic free abdominal or pelvic fluid. Endovaginal scanning: Uterus: Uterus is normal in size at 8.3 x 4.4 x 5.4 cm. The endometrium measures 11.4 mm in combined thickness. Ovaries: Right ovary measures 45 x 27 x 31 mm. Left ovary measures 26 x 15 x 24 mm. There is a complex focus identified within the right ovary measuring 36 x 23 x 34 mm. There is a dilated serpiginous hypoechoic structure surrounding the right ovary. IMPRESSION: 1. Complex right ovarian cyst. 2. Dilated serpiginous structure suspected to represent adjacent hydrosalpinx on the right. Dictated by: Romy Bernal M.D. on 12/13/2019 at 12:40 Approved by: Romy Bernal M.D. on 12/13/2019 at 13:01
[2019-12-13 11:10] LABS: Add Manual Diff / Slide Review NO; Basophils Absolute Auto 0 /uL (0-100); Basophils Percent Auto 0.5 % (0-2); Eosinophils Absolute Auto 100 /uL (0-450); Eosinophils Percent Auto 1.7 % (2-4); Hemoglobin 11.8 g/dL (12.0-16.0); Lymphocytes Absolute Auto 1700 /uL (1100-4500); Lymphocytes Percent Auto 26.4 % (25-40); Mean Corpuscular HGB Conc 32.9 % (30-36); Mean Corpuscular Hemoglobin 27.6 PG (26-34); Mean Corpuscular Volume 84.1 fL (80-100); Monocytes Absolute Auto 700 /uL (0-900); Monocytes Percent Auto 10.2 % (3-14); Neutrophils Absolute Auto 4100 /uL (1500-7000); Neutrophils Percent Auto 61.2 % (50-75); Platelet Count 279 X10^3/uL (150-400); Red Blood Cell Count 4.28 X10^6/uL (4.0-5.2); Red Cell Distribution Width 15.6 % (11.6-14.8); White Blood Cell Count 6.6 X10^3/uL (4.5-11.0)
[2019-12-13 11:16] LABS: Alanine Aminotransferase 10 IU/L (<35); Albumin 4.3 g/dL (3.5-5.0); Albumin Globulin Ratio 1.3 (1.0-2.8); Alkaline Phosphatase 68 U/L (38-126); Aspartate Aminotransferase 25 IU/L (14-36); Bilirubin Total 0.3 mg/dL (0.2-1.3); Blood Urea Nitrogen 10 mg/dL (7-17); Calcium 9.2 mg/dL (8.4-10.2); Carbon Dioxide 26 mmol/L (22-32); Chloride 105 mmol/L (98-107); Estimated Glomerular Filt Rate > 60.0 mL/min (>60); Globulin 3.4 g/dL (1.7-4.1); Glucose 76 mg/dL (70-100); HEMOLYSIS < 15 (0-50); Lipase 74 U/L (23-300); Potassium 3.7 mmol/L (3.4-5.1); Sodium 137 mmol/L (137-145); Total Protein 7.7 g/dL (6.3-8.2)
[2019-12-13] MEDS: KETOROLAC 60 MG/2 ML VIAL 15 MG IV ×2 (11:35→14:06)
[2019-12-13] MEDS: ONDANSETRON 4 MG/2 ML INJ IV (11:36)
[2019-12-13] MEDS: SODIUM CHLORIDE 0.9% 500 ML 1000 ML IV (11:40)
[2019-12-13] MEDS: HYDROMORPHONE 0.5 MG INJ IV (13:07)
--- NOTE | 2019-12-13 13:29 | ED_ITS ---
HPI - General Adult General Chief complaint: Abdominal Pain Stated complaint: Lower Rt Abd pain Time Seen by Provider: 12/13/19 10:38 Source: patient Mode of arrival: Ambulatory History of Present Illness HPI narrative: 33-year-old woman presents with worsening right lower quadrant and flank pain. It has been present for a week but growing worse. Denies fevers or chills, she does note some dysuria as well as urgency but no vaginal discharge. She has had her appendix removed and does have a history of kidney stones. She is wondering if this may be an ovarian cyst. No chest pain, shortness of breath, palpitations. Related Data Home Medications Medication Instructions Recorded Confirmed ibuprofen 400 mg tablet 400 mg PO Q8H 11/11/19 11/11/19 Previous Rx's Medication Instructions Recorded ondansetron 4 mg disintegrating 4 mg PO Q8H PRN #20 tab 11/11/19 tablet sertraline 50 mg tablet 75 mg PO DAILY #135 tab 11/11/19 tizanidine 4 mg capsule 4 mg PO TID PRN #60 cap 11/11/19 tramadol 50 mg tablet 50 mg PO TID #90 tab 11/11/19 trazodone 50 mg tablet 50 mg PO BEDTIME #90 tab 11/11/19 oxycodone-acetaminophen [Percocet] 1 tab PO Q8H PRN #10 tab 12/13/19 pregabalin 100 mg capsule 100 mg PO BEDTIME #30 cap 12/13/19 Allergies Allergy/AdvReac Type Severity Reaction Status Date / Time No Known Drug Allergies Allergy Verified 11/11/19 10:11 Review of Systems Review of Systems Narrative: All systems reviewed and are unremarkable except as noted in HPI and below Patient History Medical History Anxiety (Chronic ~2015) Chicken pox (Resolved ~1990) Chronic back pain (Chronic ~2014) Chronic low back pain (Inactive 2014) Degenerative disc disease (Inactive) Depression (Chronic ~2014) Ectopic (Resolved) Kidney stones (Inactive ~2012) PTSD (post-traumatic stress disorder) (Chronic ~2015) Surgical History Anesthesia (Resolved) History of ankle surgery (Resolved ~04/2008) History of appendectomy (Resolved ~09/1999) History of section (Resolved ~08/2007) History of surgery (Resolved ~12/2014) No pertinent past surgical history (Acute) Status post laparoscopic surgery (Resolved ~09/2018) Family History Brother Hypertension Hyperlipidemia Mental health problem Grandfather Congestive heart failure Diabetes mellitus Hypertension Hyperlipidemia Stroke Grandmother Mental health problem Grandfather Cancer Diabetes mellitus History of heart disease Grandmother Diabetes mellitus Congestive heart failure Hyperlipidemia Hypertension Stroke Social History Smoking Status: Former smoker Smoking Status: Former smoker alcohol intake frequency: 0-2 drinks per day Substance Use Type: marijuana Exam Narrative Exam Narrative: General: Healthy appearing, in no acute distress. Able to give a complete and coherent history. Well-nourished well-developed HEENT: Moist mucous membranes, normal sclera with reactive pupils, Neck: supple Respiratory: Lungs are clear to auscultation, no wheezing no rales no rhonchi. Full and symmetrical air movement Cardiac: Regular rate and rhythm no murmurs no bruits Abdomen: Soft , mild tenderness in the right lower quadrant slightly radiating to the right flank very mild rebound without any guarding Skin: Warm and dry, no rashes Neurologic: Grossly neurologically intact with no obvious asymmetries or abnormalities Extremities: No trauma, well perfused Psych: Cooperative, appropriate insight and affect Initial Vital Signs Initial Vital Signs: Vital Signs Temperature 98 F 12/13/19 10:41 Pulse Rate 70 12/13/19 10:41 Respiratory Rate 16 12/13/19 10:41 Blood Pressure 111/64 12/13/19 10:41 Pulse Oximetry 98 12/13/19 10:41 Course Orders Ordered: ED Orders 12/13/19 10:50 Complete Blood Count AUTO DIFF Stat Comprehensive Metabolic Panel Stat Lipase Stat 12/13/19 11:02 US pelvic complete Stat Discontinued Medications Hydromorphone HCl (Dilaudid) 0.5 mg IV NOW ONE Stop: 12/13/19 13:03 Last Admin: 12/13/19 13:07 Dose: 0.5 mg Documented by: ADONIS Sodium Chloride (Normal Saline 0.9%) 500 mls @ 1,000 mls/hr IV BOLUS ONE Stop: 12/13/19 11:29 Last Infusion: 12/13/19 14:16 Dose: 0 mls/hr Documented by: Admin: 12/13/19 11:40 Dose: 1,000 mls/hr Documented by: ADONIS Ketorolac Tromethamine (Toradol) 15 mg IV NOW ONE Stop: 12/13/19 11:01 Last Admin: 12/13/19 11:35 Dose: 15 mg Documented by: ADONIS Ketorolac Tromethamine (Toradol) 15 mg IV NOW ONE Stop: 12/13/19 13:38 Last Admin: 12/13/19 14:06 Dose: 15 mg Documented by: LISA Ondansetron HCl (Zofran) 4 mg IV NOW ONE Stop: 12/13/19 11:31 Last Admin: 12/13/19 11:36 Dose: 4 mg Documented by: ADONIS Vital Signs Vital signs: Vital Signs - 8 hr 12/13/19 10:41 12/13/19 14:16 Temperature 98 F Pulse Rate 70 78 Respiratory Rate 16 14 Blood Pressure 111/64 122/65 Pulse Oximetry 98 98 Medical Decision Making Medical Records Medical records reviewed: Yes I reviewed the patient's medical records. Lab Data Lab results reviewed: Yes I reviewed the patient's lab results. Result diagrams: 12/13/19 10:50 12/13/19 10:50 Labs: Lab Results 12/13/19 12/13/19 Range/Units 10:50 10:50 WBC 6.6 (4.5-11.0) X10^3/uL RBC 4.28 (4.0-5.2) X10^6/uL Hgb 11.8 L (12.0-16.0) g/dL Hct 36.0 (36-46) % MCV 84.1 (80-100) fL MCH 27.6 (26-34) PG MCHC 32.9 (30-36) % RDW 15.6 H (11.6-14.8) % Plt Count 279 (150-400) X10^3/uL Neut % (Auto) 61.2 (50-75) % Lymph % (Auto) 26.4 (25-40) % [place] % (Auto) 10.2 (3-14) % Eos % (Auto) 1.7 L (2-4) % Baso % (Auto) 0.5 (0-2) % Neut # (Auto) 4100 (2663-3959) /uL Lymph # (Auto) 1700 (8720-6289) /uL [place] # (Auto) 700 (0-900) /uL Eos # (Auto) 100 (0-450) /uL Baso # (Auto) 0 (0-100) /uL Sodium 137 (137-145) mmol/L Potassium 3.7 (3.4-5.1) mmol/L Chloride 105 (98-107) mmol/L Carbon Dioxide 26 (22-32) mmol/L BUN 10 (7-17) mg/dL Creatinine 0.50 L (0.52-1.04) mg/dL Estimated GFR > 60.0 (>60) mL/min BUN/Creatinine Ratio 20.0 (6-22) Glucose 76 (70-100) mg/dL Calcium 9.2 (8.4-10.2) mg/dL Total Bilirubin 0.3 (0.2-1.3) mg/dL AST 25 (14-36) IU/L ALT 10 (<35) IU/L Alkaline Phosphatase 68 (38-126) U/L Total Protein 7.7 (6.3-8.2) g/dL Albumin 4.3 (3.5-5.0) g/dL Globulin 3.4 (1.7-4.1) g/dL Albumin/Globulin Ratio 1.3 (1.0-2.8) Lipase 74 (23-300) U/L Point of Care Testing Test Results Negative Urine Dip Bedside Urine Glucose Negative Bedside Urine Bilirubin - Negative Bedside Urine Ketone - Negative Urine Specific [place] 1.015 Bedside Urine Occult Blood - Negative Bedside Urine pH 7.0 Bedside Urine Protein - Negative Bedside Urine Urobilinogen - Negative Bedside Urine Nitrite - Negative Bedside Urine Leukocytes - Negative Esterase Point of care testing: Point of Care Testing Test Results Negative Urine Dip Bedside Urine Glucose Negative Bedside Urine Bilirubin - Negative Bedside Urine Ketone - Negative Urine Specific [place] 1.015 Bedside Urine Occult Blood - Negative Bedside Urine pH 7.0 Bedside Urine Protein - Negative Bedside Urine Urobilinogen - Negative Bedside Urine Nitrite - Negative Bedside Urine Leukocytes - Negative Esterase Imaging Data pelvic us: Radiologist's Impression: IMPRESSION: 1. Complex right ovarian cyst. 2. Dilated serpiginous structure suspected to represent adjacent hydrosalpinx on the right. Dictated by: Romy Bernla M.D. on 12/13/2019 at 12:40 MDM Narrative Medical decision making narrative: Increasing right lower prior print pain is consistent with a developing right complex ovarian cyst. It is unclear whether this is a hydrosalpinx on the right or varicose ovarian vessel. This is a significant change from pelvic ultrasound September 2019 Discharge Plan Departure Patient Disposition: Home Clinical Impression: Ovarian cyst Qualifiers: Laterality: right Qualified Code(s): N83.201 - Unspecified ovarian cyst, right side Discharge Date/Time: 12/13/19 14:15 Instructions: DI for Ovarian Cyst Activity Restrictions/Additional Instructions: Thank you for coming in today It does not look like you have any type of infection or kidney stones. You have developed a cyst on your right ovary and this does need to be followed up. For the acute pain please continue the tramadol that your regularly taking and I have given you small prescription for additional Percocet (you can take Percocet and tramadol at the same time) to help with severe pain. Percocet will make you constipated so please make sure you are drinking plenty of water and either taking a stool softener or eating extra fiber and you should not drive while you are taking it. The prescription has been electronically sent to [facility] We have left a message with [facility]. Dr. Calderón will be notified the OBGYN section will contact you to schedule an appointment in the near future. I hope you feel better quickly Prescriptions: New oxycodone-acetaminophen [Percocet] 5-325 mg tablet 1 tab PO Q8H PRN (Reason: pain) Qty: 10 RF: 0 No Action pregabalin 100 mg capsule 100 mg PO BEDTIME Qty: 30 RF: 5 sertraline 50 mg tablet 75 mg PO DAILY Qty: 135 RF: 3 ibuprofen 400 mg tablet 400 mg PO Q8H RF: 0 tramadol 50 mg tablet 50 mg PO TID Qty: 90 RF: 2 tizanidine 4 mg capsule 4 mg PO TID PRN (Reason: muscle spasticity) Qty: 60 RF: 3 trazodone 50 mg tablet 50 mg PO BEDTIME Qty: 90 RF: 3 ondansetron 4 mg tablet,disintegrating 4 mg PO Q8H PRN (Reason: nausea and vomiting) Qty: 20 RF: 5 Referrals: Yamil Leroy MD [Primary Care Provider] -
[2019-12-13 14:16] VITALS: BP 122/65; PULSE 78; RESP 14; O2SAT 98
== END 2019-12-13 14:15 | disposition home or self-care (01) ==
PROVIDERS: Emergency Provider Emergency Medicine; PCP Student in an Organized Health Care Education/Training Program
DX: N83.201 Unspecified ovarian cyst, right side (principal)
CPT/HCPCS: 36415; 76830; 76856; 80053; 81003; 81025; 83690; 85025; 96361; 96374; 96375; 96376; 99284; J1170; J1885; J2405

== ENCOUNTER → 2020-03-21 17:02 | Outpatient (CLI) | payer OTHER, MEDICAID, SELFPAY | PROVIDERS: PCP Student in an Organized Health Care Education/Training Program; Visit Provider Student in an Organized Health Care Education/Training Program | DX: L02.91 Cutaneous abscess, unspecified (principal) | CPT/HCPCS: 87070; 87075; 87205 ==

== ENCOUNTER → 2020-05-04 13:54 | Outpatient (CLI) | payer OTHER, MEDICAID, SELFPAY ==
[2020-05-04 16:09] LABS: HCG Quantitative /Beta subunit 47.2 mIU/mL
== END ==
PROVIDERS: PCP Student in an Organized Health Care Education/Training Program; Referring Provider Obstetrics & Gynecology; Visit Provider Obstetrics & Gynecology
DX: Z34.90 Encounter for supervision of normal pregnancy, unspecified, unspecified trimester (principal)
CPT/HCPCS: 36415; 84702

== ENCOUNTER → 2020-05-06 12:00 | Outpatient (CLI) | payer OTHER, MEDICAID, SELFPAY ==
[2020-05-06 15:23] LABS: HCG Quantitative /Beta subunit 132.7 mIU/mL
== END ==
PROVIDERS: PCP Student in an Organized Health Care Education/Training Program; Referring Provider Obstetrics & Gynecology; Visit Provider Obstetrics & Gynecology
DX: Z34.90 Encounter for supervision of normal pregnancy, unspecified, unspecified trimester (principal)
CPT/HCPCS: 36415; 84702

== ENCOUNTER → 2020-05-09 13:54 | Outpatient (CLI) | payer OTHER, MEDICAID, SELFPAY ==
[2020-05-09 14:25] LABS: Appearance Urine UA CLEAR; Bilirubin Urine UA NEGATIVE (NEGATIVE); Color Urine UA YELLOW; Glucose Urine UA NEGATIVE (Negative); Ketones Urine UA NEGATIVE (NEGATIVE); Leukocyte Esterase Urine UA NEGATIVE (NEGATIVE); Nitrite Urine UA NEGATIVE (Negative); Occult Blood Urine UA NEGATIVE (Negative); Protein Urine UA NEGATIVE (Negative); Urobilinogen Urine UA 0.2 E.U./dL (0.2)
== END ==
PROVIDERS: PCP Student in an Organized Health Care Education/Training Program; Referring Provider Obstetrics & Gynecology; Visit Provider Obstetrics & Gynecology
DX: O26.899 Other specified pregnancy related conditions, unspecified trimester (principal); R10.9 Unspecified abdominal pain
CPT/HCPCS: 81003; 87086

== ENCOUNTER 2020-05-09 19:24 | Emergency (ER) | payer OTHER, MEDICAID, SELFPAY ==
--- NOTE | 2020-05-09 19:26 | ED_ITS ---
HPI - General Chief complaint: OB/Uterine Contractions Stated complaint: , thinks ectopic possibly Time Seen by Provider: 05/09/20 19:26 Source: patient Mode of arrival: Ambulatory Limitations: no limitations History of Present Illness HPI Narrative: 34-year-old female nonsmoker is currently , very early in her , and has some right lower quadrant pain. She was seen and evaluated in her primary care office earlier today because she had some discomfort which started in her back and now is largely in her right lower quadrant. She denies runny nose, sore throat nor fever or chills. She denies any vaginal bleeding or discharge. She denies any dysuria, frequency or urgency. She has had no nausea or vomiting. Her pain is persistent and worse with motion and improves with rest. MD Complaint: abdominal pain Onset (ago): hour(s) Pain Consistency: constant Location: pelvis Severity: moderate Quality: Aching Radiation: pelvis Relieving factors: rest Exacerbating factors: movement Vaginal discharge: none Vaginal bleeding: none OB History - Current : no complications care: none Related Data Home Medications Medication Instructions Recorded Confirmed ibuprofen 400 mg tablet 400 mg PO Q8H 11/11/19 03/21/20 Previous Rx's Medication Instructions Recorded ondansetron 4 mg disintegrating 4 mg PO Q8H PRN #20 tab 11/11/19 tablet trazodone 50 mg tablet 50 mg PO BEDTIME #90 tab 11/11/19 sertraline 50 mg tablet 50 mg PO DAILY #90 tab 03/22/20 tizanidine 4 mg capsule 4 mg PO TID PRN #180 cap 04/26/20 tramadol 50 mg tablet 50 mg PO TID #90 tab 04/27/20 Allergies Allergy/AdvReac Type Severity Reaction Status Date / Time No Known Drug Allergies Allergy Verified 03/21/20 16:30 Review of Systems Constitutional Constitutional: Denies chills, Denies fatigue, Denies fever(s), Denies frequent falls, Denies lethargy and Denies weakness Eyes Eyes: Denies change in vision, Denies eye discharge, Denies irritation and Denies loss of vision ENT Ears, Nose, Mouth, and Throat: Denies change in voice, Denies dizziness, Denies neck pain, Denies sore throat and Denies throat swelling Cardiovascular Cardiovascular: Denies chest pain, Denies irregular heart rhythm, Denies lightheadedness, Denies palpitations, Denies dyspnea, Denies dyspnea on exertion and Denies orthopnea Respiratory Respiratory: Denies cough, Denies dyspnea, Denies dyspnea on exertion and Denies wheezing Gastrointestinal Gastrointestinal: Reports abdominal pain, Denies change in bowel habits, Denies diarrhea, Denies nausea and Denies vomiting Musculoskeletal Musculoskeletal: Denies neck pain and Denies numbness Integumentary/Breasts Skin/Breast: Denies pruritus, Denies erythema, Denies rash and Denies wounds Neurologic Neurologic: Denies behavioral changes, Denies confusion, Denies dizziness, Denies frequent falls, Denies loss of vision, Denies numbness and Denies weakness Psychiatric Psychiatric: Denies anxiety, Denies behavioral changes, Denies confusion, Denies depression, Denies homicidal ideation and Denies suicidal ideation Endocrine Endocrine: Denies fatigue, Denies flushing and Denies palpitations Hematologic/Lymphatic Hematologic/Lymphatic: Denies easy bruising Allergic/Immunologic Allergic/Immunologic: Denies urticaria, Denies throat swelling and Denies whee zing PMFSH - Past Medical History Surgical history: Reports non-contributory Psychiatric history: Reports no psych history Exam Narrative Exam Narrative: GENERAL: [34] year old patient appears stated age. Well- nourished, well-developed patient, in mild distress. Tearful, obviously uncomfortable HEAD: Atraumatic. Normocephalic. EYES: Pupils equal round and reactive. Extraocular motions intact. No scleral icterus. No injection or drainage. ENT: Nose without bleeding, purulent drainage. Throat without erythema, tonsillar hypertrophy or exudate. Airway patent. NECK: Trachea midline. Non tender CARDIOVASCULAR: Regular rate and rhythm without murmurs, gallops, or rubs. RESPIRATORY: Clear to auscultation. Breath sounds equal bilaterally. No wheezes, rales, or rhonchi. GASTROINTESTINAL: Abdomen soft, mild tenderness in the right lower quadrant, n ondistended. EXTREMITIES: No edema or joint tenderness. BACK: Nontender without deformity or crepitance. No flank tenderness. NEURO: AOx3. SKIN: No rash or erythema of visible areas Initial Vital Signs Initial Vital Signs: Vital Signs Temperature 98.3 F 05/09/20 19:29 Pulse Rate 124 H 05/09/20 19:29 Respiratory Rate 24 05/09/20 19:29 Blood Pressure 160/96 H 05/09/20 19:29 Pulse Oximetry 99 05/09/20 19:29 Course Orders Ordered: ED Orders 05/09/20 15:35 ABO RH Type Stat Complete Blood Count AUTO DIFF Stat HCG Quantitative /Beta subunit Stat 05/09/20 19:39 US pelvic complete Stat Discontinued Medications Acetaminophen (Tylenol) 650 mg PO NOW ONE Stop: 05/09/20 20:57 Last Admin: 05/09/20 21:00 Dose: 650 mg Documented by: AKOSUA Hydrocodone Bitart/Acetaminophen (Vicodin 5/325 Prepack) 1 bottle MISC SEEINSTR ONE Stop: 05/09/20 21:31 Last Admin: 05/09/20 21:33 Dose: 1 bottle Documented by: LISA Vital Signs Vital signs: Vital Signs - 8 hr 05/09/20 19:29 05/09/20 20:52 Temperature 98.3 F Pulse Rate 124 H 91 H Respiratory Rate 24 20 Blood Pressure 160/96 H 130/58 L Pulse Oximetry 99 98 MDM - OB/Uterine Contractions Lab Data Result diagrams: 05/09/20 15:35 Labs: Lab Results 05/09/20 05/09/20 05/09/20 Range/Units 15:35 15:35 15:35 WBC 8.2 (4.5-11.0) X10^3/uL RBC 4.54 (4.0-5.2) X10^6/uL Hgb 11.9 L (12.0-16.0) g/dL Hct 37.0 (36-46) % MCV 81.4 (80-100) fL MCH 26.1 (26-34) PG MCHC 32.1 (30-36) % RDW 15.4 H (11.6-14.8) % Plt Count 329 (150-400) X10^3/uL Neut % (Auto) 51.3 (50-75) % Lymph % (Auto) 34.4 (25-40) % [place] % (Auto) 11.2 (3-14) % Eos % (Auto) 2.1 (2-4) % Baso % (Auto) 1.0 (0-2) % Neut # (Auto) 4200 (3346-0459) /uL Lymph # (Auto) 2800 (3326-2262) /uL [place] # (Auto) 900 (0-900) /uL Eos # (Auto) 200 (0-450) /uL Baso # (Auto) 100 (0-100) /uL HCG, Quant 213.2 mIU/mL Blood Type O Positive Point of Care Testing Test Results Positive Urine Dip Bedside Urine Glucose Negative Bedside Urine Bilirubin - Negative Bedside Urine Ketone - Negative Urine Specific [place] 1.010 Bedside Urine Occult Blood - Negative Bedside Urine pH 6.0 Bedside Urine Protein - Negative Bedside Urine Urobilinogen - Negative Bedside Urine Nitrite - Negative Bedside Urine Leukocytes - Negative Esterase Discharge Plan Departure Patient Disposition: Home Clinical Impression: Acute right lower quadrant pain Discharge Date/Time: 05/09/20 21:40 Instructions: DI for Abdominal Pain-Adult, DI for -- Discomforts and Remedies Activity Restrictions/Additional Instructions: *You have been diagnosed with [right lower quadrant pain, reassuring blood work, urine and ultrasound, but we still cannot rule out ectopic ] *What to do: *Take medications as directed *Follow up with your primary care provider in 2-3 days, call for an appointment. Let them know you were seen in the Emergency Department and that we ask that you be seen in follow up. You will need to follow your labs and ultrasound closely. It may be close to a week until your HCG is high enough for us to see anything on ultrasound however. *Return to ER if you should have any new, worsening or concerning symptoms Prescriptions: No Action sertraline 50 mg tablet 50 mg PO DAILY Qty: 90 RF: 3 tizanidine 4 mg capsule 4 mg PO TID PRN (Reason: muscle spasticity) Qty: 180 RF: 1 tramadol 50 mg tablet 50 mg PO TID Qty: 90 RF: 0 ibuprofen 400 mg tablet 400 mg PO Q8H RF: 0 trazodone 50 mg tablet 50 mg PO BEDTIME Qty: 90 RF: 3 ondansetron 4 mg tablet,disintegrating 4 mg PO Q8H PRN (Reason: nausea and vomiting) Qty: 20 RF: 5 Referrals: Yamil Leroy MD [Primary Care Provider] - [place],MD Linda [Physician] -
[2020-05-09 19:29] VITALS: BP 160/96; PULSE 124; RESP 24; TEMP 36.8; O2SAT 99
--- NOTE | 2020-05-09 19:39 | DI.US.S_ITS ---
PROCEDURE: US PELVIC COMPLETE INDICATIONS: RIGHT LOWER QUADRANT PAIN TECHNIQUE: Real-time scanning was performed of the pelvic organs, with image documentation. Additional endovaginal scanning was necessary due to incomplete visualization of the adnexal and endometrial structures by transabdominal scanning. COMPARISON: [facility], PELVIC COMPLETE, 09/22/2019, 20:23. [facility], PELVIC COMPLETE, 12/13/2019, 11:41. FINDINGS: Transabdominal scanning: Limited scanning through the kidneys shows no hydronephrosis. No pathologic free abdominal or pelvic fluid. Endovaginal scanning: Uterus: Uterus is normal in size at 8.3 x 4.3 x 6.7 cm. The endometrium measures 16.6 mm in combined thickness. There is no intrauterine identified. Ovaries: Right ovary is normal measuring 2.8 x 1.3 x 1.6 cm. Left ovary measures 2.6 x 1.9 x 2.7 cm. There is a complex cyst in the left ovary measuring 1 6 x 1.3 x 1.9 cm. IMPRESSION: 1. No IUP is identified. 2. Endometrium is thickened. 3. A 1.6 x 1.3 x 1.9 cm complex cyst in the left ovary. Differential diagnosis include a corpus luteal cyst versus ectopic . Dictated by: Jairo Campbell M.D. on 05/09/2020 at 20:55 Approved by: Jairo Campbell M.D. on 05/09/2020 at 20:59
--- NOTE | 2020-05-09 19:44 | PC.NURSE ---
patient reports she has had two ectopic pregnancies in the past and pain feels very similar. Patient was evaluated by [place] office today for UTI reports negative. Patient reports pain started in back initially couple days ago but has increase substantially in last couple hours.
[2020-05-09 19:47] LABS: Add Manual Diff / Slide Review NO; Basophils Absolute Auto 100 /uL (0-100); Eosinophils Absolute Auto 200 /uL (0-450); Eosinophils Percent Auto 2.1 % (2-4); Hemoglobin 11.9 g/dL (12.0-16.0); Lymphocytes Absolute Auto 2800 /uL (1100-4500); Lymphocytes Percent Auto 34.4 % (25-40); Mean Corpuscular HGB Conc 32.1 % (30-36); Mean Corpuscular Hemoglobin 26.1 PG (26-34); Mean Corpuscular Volume 81.4 fL (80-100); Monocytes Absolute Auto 900 /uL (0-900); Monocytes Percent Auto 11.2 % (3-14); Neutrophils Absolute Auto 4200 /uL (1500-7000); Neutrophils Percent Auto 51.3 % (50-75); Platelet Count 329 X10^3/uL (150-400); Red Blood Cell Count 4.54 X10^6/uL (4.0-5.2); Red Cell Distribution Width 15.4 % (11.6-14.8); White Blood Cell Count 8.2 X10^3/uL (4.5-11.0)
[2020-05-09 20:36] LABS: HCG Quantitative /Beta subunit 213.2 mIU/mL
[2020-05-09 20:52] VITALS: BP 130/58; PULSE 91; RESP 20; O2SAT 98
[2020-05-09] MEDS: ACETAMINOPHEN 325 MG TABLET 650 MG PO (21:00)
--- NOTE | 2020-05-09 21:01 | PC.NURSE ---
patient check. Reports same level of abd pain but increase in headache. Requesting Tylenol. Verbal order received from Dr Ocampo.
[2020-05-09] MEDS: HYDROCODONE/ACET 5/325 PREPACK 1 BOTTLE MISC (21:33)
== END 2020-05-09 21:40 | disposition home or self-care (01) ==
PROVIDERS: Emergency Provider Emergency Medicine; PCP Student in an Organized Health Care Education/Training Program; Referring Provider Student in an Organized Health Care Education/Training Program
DX: O26.899 Other specified pregnancy related conditions, unspecified trimester (principal); R10.31 Right lower quadrant pain; R10.9 Unspecified abdominal pain
CPT/HCPCS: 36415; 76830; 76856; 81003; 81025; 84702; 85025; 86900; 86901; 87086; 99284

== ENCOUNTER → 2020-05-11 13:01 | Outpatient (CLI) | payer OTHER, MEDICAID, SELFPAY ==
[2020-05-11 15:02] LABS: HCG Quantitative /Beta subunit 320.7 mIU/mL
== END ==
PROVIDERS: PCP Student in an Organized Health Care Education/Training Program; Referring Provider Obstetrics & Gynecology; Visit Provider Obstetrics & Gynecology
DX: Z34.90 Encounter for supervision of normal pregnancy, unspecified, unspecified trimester (principal)
CPT/HCPCS: 36415; 84702

== ENCOUNTER → 2020-05-13 11:55 | Outpatient (CLI) | payer OTHER, MEDICAID, SELFPAY ==
[2020-05-13 12:44] LABS: Alanine Aminotransferase 9 IU/L (<35); Albumin 4.3 g/dL (3.5-5.0); Albumin Globulin Ratio 1.4 (1.0-2.8); Alkaline Phosphatase 61 U/L (38-126); Aspartate Aminotransferase 22 IU/L (14-36); Bilirubin Total 0.3 mg/dL (0.2-1.3); Blood Urea Nitrogen 7 mg/dL (7-17); Calcium 9.5 mg/dL (8.4-10.2); Carbon Dioxide 28 mmol/L (22-32); Chloride 104 mmol/L (98-107); Estimated Glomerular Filt Rate > 60.0 mL/min (>60); Glucose 94 mg/dL (70-100); HEMOLYSIS < 15 (0-50); Potassium 3.8 mmol/L (3.4-5.1); Sodium 137 mmol/L (137-145); Total Protein 7.3 g/dL (6.3-8.2)
[2020-05-13 12:57] LABS: HCG Quantitative /Beta subunit 532.5 mIU/mL
== END ==
PROVIDERS: PCP Student in an Organized Health Care Education/Training Program; Referring Provider Obstetrics & Gynecology; Visit Provider Obstetrics & Gynecology
DX: O36.80X0 Pregnancy with inconclusive fetal viability, not applicable or unspecified (principal)
CPT/HCPCS: 36415; 80053; 84702

== ENCOUNTER 2020-05-15 23:42 | Emergency (ER) | payer OTHER, MEDICAID, SELFPAY ==
--- NOTE | 2020-05-15 23:52 | ED_ITS ---
HPI - General Chief complaint: Urogenital-Female Stated complaint: 5wks , cramping and bleeding Time Seen by Provider: 05/15/20 23:45 Source: patient and family Mode of arrival: Ambulatory Limitations: no limitations History of Present Illness HPI Narrative: 34F non smoker is at 5 weeks and returns with ongoing RLQ pain. She is now having some increased bleeding. She denies significant bleeding and has only some spots on a liner. She is not dizzy, weak or lightheaded. She denies any fever or chills. Her pain is rather persistent and in the right lower quadrant MD Complaint: vaginal bleeding Onset (ago): day(s) Pain Consistency: constant Location: pelvis Severity: mild Quality: Cramping Radiation: pelvis Relieving factors: none Exacerbating factors: none Associated symptoms: vaginal bleeding Vaginal discharge: none Vaginal bleeding: light Patient : Yes OB History - Current : no complications OB History - Previous Pregnancies: miscarriage and other care: followed by OB Related Data Home Medications Medication Instructions Recorded Confirmed ibuprofen 400 mg tablet 400 mg PO Q8H 11/11/19 03/21/20 Previous Rx's Medication Instructions Recorded ondansetron 4 mg disintegrating 4 mg PO Q8H PRN #20 tab 11/11/19 tablet trazodone 50 mg tablet 50 mg PO BEDTIME #90 tab 11/11/19 sertraline 50 mg tablet 50 mg PO DAILY #90 tab 03/22/20 tizanidine 4 mg capsule 4 mg PO TID PRN #180 cap 04/26/20 tramadol 50 mg tablet 50 mg PO TID #90 tab 04/27/20 Allergies Allergy/AdvReac Type Severity Reaction Status Date / Time No Known Drug Allergies Allergy Verified 03/21/20 16:30 Review of Systems Constitutional Constitutional: Denies chills, Denies fatigue, Denies fever(s), Denies frequent falls, Denies lethargy and Denies weakness Eyes Eyes: Denies change in vision, Denies eye discharge, Denies irritation and Denies loss of vision ENT Ears, Nose, Mouth, and Throat: Denies change in voice, Denies dizziness, Denies neck pain, Denies sore throat and Denies throat swelling Cardiovascular Cardiovascular: Denies chest pain, Denies irregular heart rhythm, Denies lightheadedness, Denies palpitations, Denies dyspnea, Denies dyspnea on exertion and Denies orthopnea Respiratory Respiratory: Denies cough, Denies dyspnea, Denies dyspnea on exertion and Denies wheezing Gastrointestinal Gastrointestinal: Denies abdominal pain, Denies change in bowel habits, Denies diarrhea, Denies nausea and Denies vomiting Genitourinary Genitourinary: Reports abnormal vaginal bleeding Musculoskeletal Musculoskeletal: Denies neck pain and Denies numbness Integumentary/Breasts Skin/Breast: Denies pruritus, Denies erythema, Denies rash and Denies wounds Neurologic Neurologic: Denies behavioral changes, Denies confusion, Denies dizziness, Denies frequent falls, Denies loss of vision, Denies numbness and Denies weakness Psychiatric Psychiatric: Denies anxiety, Denies behavioral changes, Denies confusion, Denies depression, Denies homicidal ideation and Denies suicidal ideation Endocrine Endocrine: Denies fatigue, Denies flushing and Denies palpitations Hematologic/Lymphatic Hematologic/Lymphatic: Denies easy bruising Allergic/Immunologic Allergic/Immunologic: Denies urticaria, Denies throat swelling and Denies whee zing PMFSH - Past Medical History Surgical history: Reports non-contributory Patient : Yes Psychiatric history: Reports no psych history Exam Narrative Exam Narrative: GENERAL: [34] year old patient appears stated age. Well- nourished, well-developed patient, in mild distress. Anxious, tearful HEAD: Atraumatic. Normocephalic. EYES: Pupils equal round and reactive. Extraocular motions intact. No scleral icterus. No injection or drainage. ENT: Nose without bleeding, purulent drainage. Throat without erythema, tonsillar hypertrophy or exudate. Airway patent. NECK: Trachea midline. Non tender CARDIOVASCULAR: Regular rate and rhythm without murmurs, gallops, or rubs. RESPIRATORY: Clear to auscultation. Breath sounds equal bilaterally. No wheezes, rales, or rhonchi. GASTROINTESTINAL: Abdomen soft, mild right lower quadrant tenderness, nondistended. EXTREMITIES: No edema or joint tenderness. BACK: Nontender without deformity or crepitance. No flank tenderness. NEURO: AOx3. SKIN: No rash or erythema of visible areas Initial Vital Signs Initial Vital Signs: Vital Signs Temperature 98.8 F 05/16/20 00:01 Pulse Rate 95 H 05/16/20 00:01 Respiratory Rate 17 05/16/20 00:01 Blood Pressure 148/87 H 0811/20 00:01 Pulse Oximetry 99 05/16/20 00:01 Course Orders Ordered: ED Orders 05/16/20 00:28 HCG Quantitative /Beta subunit Stat Hemoglobin and Hematocrit Stat 05/16/20 01:12 US OB <= 14 weeks fetus Stat Vital Signs Vital signs: Vital Signs - 8 hr 05/16/20 00:01 05/16/20 02:11 Temperature 98.8 F Pulse Rate 95 H 79 Respiratory Rate 17 14 Blood Pressure 148/87 H 124/74 Pulse Oximetry 99 100 MDM - OB/Uterine Contractions Lab Data Result diagrams: 05/16/20 00:28 Labs: Lab Results 05/16/20 05/16/20 Range/Units 00:28 00:28 Hgb 11.4 L (12.0-16.0) g/dL Hct 34.8 L (36-46) % HCG, Quant 1386.2 mIU/mL Urine Dip Bedside Urine Glucose Negative Bedside Urine Bilirubin - Negative Bedside Urine Ketone - Negative Urine Specific [place] 1.025 Bedside Urine Occult Blood +++ Bedside Urine pH 6.0 Bedside Urine Protein - Negative Bedside Urine Urobilinogen - Negative Bedside Urine Nitrite - Negative Bedside Urine Leukocytes - Negative Esterase Imaging Data US - OB: Radiologist's Impression: Fluid-filled sac within the endometrial cavity is probably early gestational, but viability cannot be confirmed at current time Discharge Plan Departure Patient Disposition: Home Clinical Impression: First trimester bleeding Discharge Date/Time: 05/16/20 02:13 Instructions: Early Bleeding Activity Restrictions/Additional Instructions: *You have been diagnosed with [1st trimester pelvic pain with bleeding. Your ultrasound shows an intrauterine so ectopic has been ruled out, however we still need to monitor for miscarriage.] *What to do: *Follow up with your primary care provider in 2-3 days, call for an appointment. Let them know you were seen in the Emergency Department and that we ask that you be seen in follow up *Return to ER if you should have any new, worsening or concerning symptoms Prescriptions: No Action sertraline 50 mg tablet 50 mg PO DAILY Qty: 90 RF: 3 tizanidine 4 mg capsule 4 mg PO TID PRN (Reason: muscle spasticity) Qty: 180 RF: 1 tramadol 50 mg tablet 50 mg PO TID Qty: 90 RF: 0 ibuprofen 400 mg tablet 400 mg PO Q8H RF: 0 trazodone 50 mg tablet 50 mg PO BEDTIME Qty: 90 RF: 3 ondansetron 4 mg tablet,disintegrating 4 mg PO Q8H PRN (Reason: nausea and vomiting) Qty: 20 RF: 5 Referrals: Yamil Leroy MD [Primary Care Provider] -
[2020-05-16 00:01] VITALS: BP 148/87; PULSE 95; RESP 17; TEMP 37.1; O2SAT 99; BMI 24.7
[2020-05-16 00:33] LABS: Hematocrit 34.8 % (36-46); Hemoglobin 11.4 g/dL (12.0-16.0)
[2020-05-16 01:02] LABS: HCG Quantitative /Beta subunit 1386.2 mIU/mL
--- NOTE | 2020-05-16 01:12 | DI.US.S_ITS ---
PROCEDURE: US OB <= 14 WEEKS FETUS INDICATIONS: pain, spotting OUTSIDE/PRIOR DATING DATA: Last menstrual period (LMP): 04/08/2020 LMP-based estimated date of delivery (RENATO): 01/13/2021 First dating scan (date and location): 05/16/2020 Estimated date of delivery (RENATO) from first dating scan: 01/16/2021 TECHNIQUE: Real-time scanning was performed of the fetus and maternal pelvic organs, with image documentation. Endovaginal scanning was also performed to better visualize the fetus and maternal ovaries. COMPARISON: [facility], , PELVIC COMPLETE, 05/09/2020, 20:10. FINDINGS: Embryo: Small intrauterine gestational sac measuring at 3 mm corresponding to estimated gestational age of 5 weeks 0 days. No pole seen at this time. No perigestational hemorrhage. Measurement variability in dating: +/- 4 weeks by LMP, +/- 7 days by mean sac diameter (use before 6 weeks gestation if crown-rump length not able to be measured), +/- 5 days by crown-rump length (up to 8 weeks 6 days gestation), +/- 7 days by crown-rump length (up to 13 weeks 6 days gestation). Maternal organs: Ovaries are within normal limits. Left corpus luteum measuring 1.3 x 1.2 x 1.1 cm. Limited images through the kidneys demonstrate no hydronephrosis. IMPRESSION: 1. Early intrauterine gestational sac now identified. Estimated gestational age of 5 weeks 0 days. No pole at this time. - recommend short-term interval follow-up OB ultrasound to document the crown-rump length. 2. No perigestational hemorrhage. Dictated by: Franco Rachel M.D. on 05/16/2020 at 9:59 Approved by: Franco Rachel M.D. on 05/16/2020 at 10:03
[2020-05-16 02:11] VITALS: BP 124/74; PULSE 79; RESP 14; O2SAT 100
== END 2020-05-16 02:13 | disposition home or self-care (01) ==
PROVIDERS: Emergency Provider Emergency Medicine; PCP Student in an Organized Health Care Education/Training Program
DX: O20.9 Hemorrhage in early pregnancy, unspecified (principal); Z3A.01 Less than 8 weeks gestation of pregnancy
CPT/HCPCS: 36415; 76801; 76817; 81003; 84702; 85014; 85018; 99283; 99284

== ENCOUNTER → 2020-05-17 12:29 | Outpatient (CLI) | payer OTHER, SELFPAY ==
[2020-05-17 16:47] LABS: HCG Quantitative /Beta subunit 1576.5 mIU/mL
== END ==
PROVIDERS: PCP Student in an Organized Health Care Education/Training Program; Referring Provider Obstetrics & Gynecology; Visit Provider Obstetrics & Gynecology
DX: O20.9 Hemorrhage in early pregnancy, unspecified (principal)
CPT/HCPCS: 36415; 84702

== ENCOUNTER → 2020-05-18 10:23 | Outpatient (CLI) | payer OTHER, MEDICAID, SELFPAY ==
[2020-05-18 13:09] LABS: COVID19 -Nasal RAPID Negative (Negative)
== END ==
PROVIDERS: PCP Student in an Organized Health Care Education/Training Program; Visit Provider Physician Assistant
DX: Z11.59 Encounter for screening for other viral diseases (principal)
CPT/HCPCS: 87635

== ENCOUNTER 2020-05-18 10:29 | Day surgery (SDC) | payer OTHER, MEDICAID, SELFPAY ==
--- NOTE | 2020-05-18 | PATH_ITS ---
[facility] Accession Number: [id number] . 01 Material submitted: . product of conception - PRODUCTS OF CONCEPTION . 02 Diagnosis: Products of Conception: Products of conception identified. [facility] 05/22/2020 1050 Local . 02 Electronically signed: . Slime Da Silva MD, Pathologist NPI- [id number] . 01 Gross description: . Received in formalin, labeled with the patient's name. MRN and products of conception, is a 4 gram, 4.5 x 2.4 x 0.3 cm aggregate of thomas-pink irregular fragments of tissue admixed with blood clot elements. No parts are identified. The specimen is filtered and entirely submitted in cassettes A1-A2. (ND/[id number]) /V 05/19/2020 1259 Local . 02 Pathologist provided ICD-10: O02.1 . 02 CPT . 446903 Performed at: 01 [facility] [address] [facility], [place], [place] [id number] MD Checo Restrepo MD Phone: [phone] Performed at: 02 [facility] [address] [place], [place] [id number] MD Tana Reed MD Phone: [phone]
[2020-05-18 10:49] VITALS: BP 106/82; PULSE 80; RESP 17; TEMP 36.9; O2SAT 100; BMI 25.4
[2020-05-18] MEDS: LACTATED RINGERS 1,000 ML 100 ML IV (10:58)
--- NOTE | 2020-05-18 11:58 | PM.PREOP ---
Pre-operative Note COVID-19 COVID-19 status: Result pending Result date/Date tested (Pos, Neg/Pending): 05/18/20 Interval Note History & Physical reviewed/Exam performed by Physician: Yes Changes to H&P: No
--- NOTE | 2020-05-18 13:03 | SUR.OPER ---
Lithotomy on padded OR bed, head on pillow, arms secured on padded arm boards at <90 degrees abduction. Legs secured in padded yellow fins stirrups.
[2020-05-18] MEDS: DOXYCYCLINE 100 MG in SODIUM CHLORIDE 0.9% 100 ML IV (13:05)
[2020-05-18 13:31] VITALS: BP 85/53; PULSE 99; RESP 16; TEMP 37; O2SAT 100
[2020-05-18 13:36] VITALS: BP 96/56; PULSE 99; RESP 18; O2SAT 97
--- NOTE | 2020-05-18 13:42 | PM.OP.1 ---
Operative Date/Time/Diagnoses Date of procedure: 05/18/20 Time of procedure: 13:00 Pre-op diagnosis: incomplete miscarriage Post-op diagnosis: same Procedure & Clinicians Procedure: suction dilation and curettage Same procedure as scheduled: Yes Indications: incomplete miscarriage Surgeon: Linda Pan Click Yes if Unassisted: Yes Anesthesia Type: Sedation Operative Notes Findings: Normal vulva, vagina, and cervix. Specimen(s): other (products of conception) Estimated Blood Loss (mL): 50 Procedure in detail: IVF: 400ccs EBL: <50ccs UOP: NA After informed consent was obtained, the patient was taken to the operating room where IV sedation was placed and found to be adequate. The patient was placed in the dorsal lithotomy position and prepped and draped in the normal sterile fashion. The patient had voided just prior to entering the operating room. An open-sided speculum was placed into the vagina and the cervix easily visualized. The anterior lip of the cervix was grasped with a single-tooth tenaculum. The cervix was dilated with gentle pressure with Hegar dilators to 8 mm. A 7 mm suction tip was inserted gently through the cervix and carefully advanced to the uterine fundus. Suction was activated, and products of conception were removed largely with this 1st pass. Three subsequent passes were completed in the same fashion, with suction D activated on reinsertion of the tip with each pass. After the 4th pass, minimal bleeding was noted. The single-tooth tenaculum was removed from the anterior lip of the cervix, and hemostasis achieved with gentle pressure from a sponge stick. The speculum was removed from the vagina. The patient tolerated the procedure well, was taken to the PACU in stable condition. Blood type: O positive. Complications: none Post-operative Condition: stable Disposition: PACU Plan for aftercare: Home with routine precautions
[2020-05-18] MEDS: HYDROCODONE/ACET 5/325 TABLET 1 TAB PO (13:44)
[2020-05-18 13:47] VITALS: BP 113/76; PULSE 97; RESP 16; O2SAT 100
[2020-05-18 13:48] VITALS: BP 112/77; PULSE 84; RESP 13; TEMP 36.9; O2SAT 98
[2020-05-18] MEDS: ONDANSETRON 4 MG/2 ML INJ IV (14:20)
--- NOTE | 2020-05-18 14:22 | SUR.PHASEII ---
Medicated for c/o nausea. Will allow stomach to settle and reevaluate for oral pain med. C/o headache and cramping. Tearful, responses appropriate.
[2020-05-18] MEDS: OXYCODONE/ACETAMINOPHEN 5/325 TABLET 1 TAB PO (14:39)
--- NOTE | 2020-05-18 14:40 | SUR.PHASEII ---
nausea resolved, has eaten crackers and sips of water. PO rx given.
[2020-05-18 14:57] VITALS: BP 102/69; PULSE 69; RESP 14; TEMP 36; O2SAT 100
== END 2020-05-18 15:00 | disposition home or self-care (01) ==
PROVIDERS: PCP Student in an Organized Health Care Education/Training Program; Referring Provider Obstetrics & Gynecology; Visit Provider Obstetrics & Gynecology
PROC: (CPT 58120; principal; 2020-05-18 12:00)
DX: O02.1 Missed abortion (principal); Z3A.01 Less than 8 weeks gestation of pregnancy; Z11.59 Encounter for screening for other viral diseases
CPT/HCPCS: 59812; 87635; J1100; J2250; J2405; J2704; J3010

== ENCOUNTER → 2020-05-26 13:12 | Outpatient (CLI) | payer OTHER, MEDICAID, SELFPAY ==
[2020-05-26 14:55] LABS: HCG Quantitative /Beta subunit 20.9 mIU/mL
== END ==
PROVIDERS: PCP Student in an Organized Health Care Education/Training Program; Referring Provider Obstetrics & Gynecology; Visit Provider Obstetrics & Gynecology
DX: O03.4 Incomplete spontaneous abortion without complication (principal)
CPT/HCPCS: 36415; 84702

== ENCOUNTER → 2020-08-09 14:52 | Outpatient (CLI) | payer OTHER, SELFPAY ==
[2020-08-09 14:58] LABS: Bacteria Urine None Seen; RBC Urine None Seen (0-5/HPF); WBC Urine None Seen (0-5/HPF)
[2020-08-09 15:32] LABS: Add Manual Diff / Slide Review NO; Basophils Absolute Auto 0 /uL (0-100); Basophils Percent Auto 0.3 % (0-2); Eosinophils Absolute Auto 100 /uL (0-450); Eosinophils Percent Auto 1.2 % (2-4); Hematocrit 35.7 % (36-46); Hemoglobin 11.7 g/dL (12.0-16.0); Lymphocytes Absolute Auto 1800 /uL (1100-4500); Lymphocytes Percent Auto 23.9 % (25-40); Mean Corpuscular HGB Conc 32.7 % (30-36); Mean Corpuscular Hemoglobin 26.7 PG (26-34); Mean Corpuscular Volume 81.8 fL (80-100); Monocytes Absolute Auto 600 /uL (0-900); Monocytes Percent Auto 7.5 % (3-14); Neutrophils Absolute Auto 5100 /uL (1500-7000); Neutrophils Percent Auto 67.1 % (50-75); Platelet Count 296 X10^3/uL (150-400); Red Blood Cell Count 4.36 X10^6/uL (4.0-5.2); Red Cell Distribution Width 15.6 % (11.6-14.8); White Blood Cell Count 7.6 X10^3/uL (4.5-11.0)
[2020-08-09 15:41] LABS: BUN Creatinine Ratio 19.6 (6-22); Blood Urea Nitrogen 10 mg/dL (7-17); Calcium 8.9 mg/dL (8.4-10.2); Carbon Dioxide 30 mmol/L (22-32); Chloride 104 mmol/L (98-107); Estimated Glomerular Filt Rate > 60.0 mL/min (>60); Glucose 99 mg/dL (70-100); HEMOLYSIS < 15 (0-50); Potassium 3.7 mmol/L (3.4-5.1); Sodium 138 mmol/L (137-145)
[2020-08-09 15:49] LABS: Appearance Urine UA CLEAR; Bilirubin Urine UA NEGATIVE (NEGATIVE); Color Urine UA YELLOW; Glucose Urine UA NEGATIVE (Negative); Ketones Urine UA NEGATIVE (NEGATIVE); Leukocyte Esterase Urine UA NEGATIVE (NEGATIVE); Nitrite Urine UA NEGATIVE (Negative); Occult Blood Urine UA NEGATIVE (Negative); Protein Urine UA NEGATIVE (Negative); Urobilinogen Urine UA 0.2 E.U./dL (0.2)
[2020-08-09 15:56] LABS: Procalcitonin < 0.05 ng/mL (<0.5)
[2020-08-09 15:57] LABS: Pregnancy Test Serum,Qual Negative (Negative)
[2020-08-09 15:59] LABS: pH Urine UA 5.5 (4.5-8.0)
[2020-08-09 16:01] LABS: Culture Indicated Urine Cult Not Indicated; Urine Comments Microscopic Normal
== END ==
PROVIDERS: PCP Student in an Organized Health Care Education/Training Program; Referring Provider Student in an Organized Health Care Education/Training Program; Visit Provider Student in an Organized Health Care Education/Training Program
DX: R10.31 Right lower quadrant pain (principal)
CPT/HCPCS: 36415; 80048; 81001; 84145; 84703; 85025

== ENCOUNTER 2020-08-10 13:02 | Emergency (ER) | payer OTHER, MEDICAID, SELFPAY ==
[2020-08-10 13:08] VITALS: BP 136/80; PULSE 91; RESP 16; TEMP 36.3; O2SAT 100; BMI 25.7
--- NOTE | 2020-08-10 13:12 | DI.RAD.S_ITS ---
PROCEDURE: XR HAND LT MIN 3V INDICATIONS: cut hand with ax, laceration base of index finger TECHNIQUE: 3 views of the hand(s) acquired. COMPARISON: None. FINDINGS: Bones: No fractures or dislocations. Carpal bones are normally aligned. No suspicious bony lesions. Soft tissues: No suspicious soft tissue calcifications. There is a metallic ring over the 4th finger. IMPRESSION: No bony injury or radiopaque soft tissue foreign body. Dictated by: Jairo Campbell M.D. on 08/10/2020 at 14:52 Approved by: Jairo Campbell M.D. on 08/10/2020 at 14:52
--- NOTE | 2020-08-10 14:02 | PC.NURSE ---
Pt arrives from triage with bandage placed by RN. Missing skin is just below pointer finger on left hand. Pt has picture of injury and fatty tissue layer is visible. Reports burning pain and tingling into thumb.
--- NOTE | 2020-08-10 14:44 | ED.WOUNDLAC ---
HPI - Wound/Laceration <MARCELO Medley-BC - Last Filed: 08/10/20 17:31> General Chief Complaint: Wound/Laceration Stated Complaint: laceration of left Time Seen by Provider: 08/10/20 13:53 Source: patient Mode of arrival: Ambulatory Limitations: no limitations History of Present Illness HPI narrative: The patient is a 34-year-old female former smoker who denies pertinent medical history presents with a chief complaint of a laceration to her left palm. She states she was chopping kindling accidentally missed, hitting her palm. She states she has full range of motion of her hand but did states that she dropped off piece of her skin. She does not know when her last tetanus shot was. She has not washed it out. Related Data Home Medications Medication Instructions Recorded Confirmed prenat.vits,leslie,yxn-ihvb-roeme 1 tab PO DAILY 05/18/20 08/09/20 Previous Rx's Medication Instructions Recorded sertraline 100 mg tablet 100 mg PO DAILY #90 tab 06/06/20 tramadol 50 mg tablet 50 mg PO TID #90 tab 06/20/20 trazodone 50 mg tablet 50 mg PO BEDTIME #90 tab 06/20/20 tizanidine 4 mg capsule 4 mg PO TID PRN #180 cap 08/01/20 Allergies Allergy/AdvReac Type Severity Reaction Status Date / Time No Known Drug Allergies Allergy Verified 08/10/20 13:10 Review of Systems <MARCELO Medley-BC - Last Filed: 08/10/20 17:31> Review of Systems Narrative: GENERAL: Denies chills, fatigue, malaise, fever, sweats. HEENT: Denies sinus pain, ear pain, sore throat, difficulty swallowing, dizziness. RESPIRATORY: Denies dyspnea, cough, wheezing, hemoptysis, sputum. CARDIOVASCULAR: Denies chest pain, palpitations, orthopnea, edema, GASTROINTESTINAL: Denies nausea, vomiting, abdominal pain, diarrhea, constipation, melena. : Denies dysuria, frequency, incontinence, hematuria, urinary retention. MUSCULOSKELETAL: denies weakness, joint pain, or bony pain SKIN: See HPI NEUROLOGIC: Denies weakness, headache, numbness, change in speech, confusion, seizures, incoordination. PSYCHIATRIC: No concerning psychosocial issues. 12 point review of systems is negative except for those stated above Patient History <KRYSTEN Medley - Last Filed: 08/10/20 17:31> Medical History Anxiety (Chronic ~2015) Chicken pox (Resolved ~1990) Chronic back pain (Chronic ~2014) Chronic low back pain (Inactive 2014) Degenerative disc disease (Inactive) Depression (Chronic ~2014) Ectopic (Resolved) Kidney stones (Inactive ~2012) PTSD (post-traumatic stress disorder) (Chronic ~2015) Surgical History Anesthesia (Resolved) History of ankle surgery (Resolved ~04/2008) History of appendectomy (Resolved ~09/1999) History of section (Resolved ~08/2007) History of surgery (Resolved ~12/2014) No pertinent past surgical history (Acute) Status post laparoscopic surgery (Resolved ~09/2018) Family History Brother Hypertension Hyperlipidemia Mental health problem Grandfather Congestive heart failure Diabetes mellitus Hypertension Hyperlipidemia Stroke Grandmother Mental health problem Grandfather Cancer Diabetes mellitus History of heart disease Grandmother Diabetes mellitus Congestive heart failure Hyperlipidemia Hypertension Stroke Social History household members: spouse Smoking Status: Former smoker alcohol intake: former Smoking Status: Former smoker alcohol intake frequency: 0-2 drinks per day Substance Use Type: marijuana Exam <KRYSTEN Medley - Last Filed: 08/10/20 17:31> Narrative Exam Narrative: GENERAL: This is a well-nourished, well-developed patient, in no acute distress HEAD: Atraumatic. Normocephalic. No temporal or scalp tenderness. EYES: Pupils equal round and reactive. Extraocular motions intact. No scleral icterus. No injection or drainage. ENT: Nose without bleeding, purulent drainage or septal hematoma. Throat without erythema, tonsillar hypertrophy or exudate. Uvula midline. Airway patent. NECK: Trachea midline. No JVD or lymphadenopathy. Supple, nontender, no meningeal signs. CARDIOVASCULAR: Regular rate and rhythm RESPIRATORY: No cough. No increased respiratory effort. No accessory muscle use. EXTREMITIES: 1 cm avulsion noted to palmar aspect of left hand. Fascia visible. No obvious muscle or tendon involvement. Capillary refill less than 2 seconds all fingers left hand. Positive left radial pulse. BACK: Nontender without deformity or crepitance. No flank tenderness. NEURO: AOx3. SKIN: See extremity exam Initial Vital Signs Initial Vital Signs: Vital Signs Temperature 97.3 F L 08/10/20 13:08 Pulse Rate 91 H 08/10/20 13:08 Respiratory Rate 16 08/10/20 13:08 Blood Pressure 136/80 08/10/20 13:08 Pulse Oximetry 100 08/10/20 13:08 <Ricki Jennings MD - Last Filed: 08/13/20 18:59> Initial Vital Signs Initial Vital Signs: Vital Signs Temperature 97.3 F L 08/10/20 13:08 Pulse Rate 91 H 08/10/20 13:08 Respiratory Rate 16 08/10/20 13:08 Blood Pressure 136/80 08/10/20 13:08 Pulse Oximetry 100 08/10/20 13:08 Scores <KRYSTEN Medley - Last Filed: 08/10/20 17:31> GCS [place] coma scale eye opening: Spontaneous Michael coma scale verbal response: Orientated Michael coma scale motor response: Obey commands [place] coma scale total score: 15 Course <KRYSTEN Medley - Last Filed: 08/10/20 17:31> Orders Ordered: Discontinued Medications Diphtheria/Tetanus/Acell Pertussis (Adacel) 0.5 ml IM .ONCE ONE Stop: 08/10/20 14:44 Last Admin: 08/10/20 14:57 Dose: 0.5 ml Documented by: NARENDRA Vital Signs Vital signs: Vital Signs - 8 hr 08/10/20 13:08 Temperature 97.3 F L Pulse Rate 91 H Respiratory Rate 16 Blood Pressure 136/80 Pulse Oximetry 100 <Ricki Jennings MD - Last Filed: 08/13/20 18:59> Orders Ordered: Discontinued Medications Diphtheria/Tetanus/Acell Pertussis (Adacel) 0.5 ml IM .ONCE ONE Stop: 08/10/20 14:44 Last Admin: 08/10/20 14:57 Dose: 0.5 ml Documented by: NARENDRA Vital Signs Vital signs: Vital Signs - 8 hr 08/10/20 13:08 Temperature 97.3 F L Pulse Rate 91 H Respiratory Rate 16 Blood Pressure 136/80 Pulse Oximetry 100 [facility] - Wound/Laceration <Asha QuinterosMARCELO- - Last Filed: 08/10/20 17:31> Imaging Data Extremity x-ray #1: Radiologist's Impression: [address] [place] [id number] XRay Report Signed Patient: Diana Toscano [facility]#: [id number] : 1985Acct:[id number] Age/Sex: 34 / FDate of Service: 08/10/20 Loc: ED Accession Number: [id number] Procedure: XR hand LT min 3V Ordering Provider: Ricki Jennings MD PROCEDURE: XR HAND LT MIN 3V INDICATIONS: cut hand with ax, laceration base of index finger TECHNIQUE: 3 views of the hand(s) acquired. COMPARISON: None. FINDINGS: Bones: No fractures or dislocations. Carpal bones are normally aligned. No suspicious bony lesions. Soft tissues: No suspicious soft tissue calcifications. There is a metallic ring over the 4th finger. IMPRESSION: No bony injury or radiopaque soft tissue foreign body. Dictated by: Jairo Campbell M.D. on 08/10/2020 at 14:52 Approved by: Jairo Campbell M.D. on 08/10/2020 at 14:52 [facility] Narrative Medical decision making narrative: The patient is a 34 year female who presents with a chief complaint of an avulsion laceration to the palm of her hand. Her tetanus is updated. Unable to suture wound, so it was cleansed with Hibiclens, and dressed with Surgicel by nursing. I discussed at length monitoring for signs and symptoms of infection such as extending redness. X-ray shows no fracture acute foreign body. She is neurovascularly intact her stay in the ER. Discussed follow-up with primary care provider, monitoring for signs and symptoms of infection and coming back to the ER for acute concerns. Patient has no questions or concerns upon discharge and states understanding return precautions as well as follow-up care Discharge Plan Departure Patient Disposition: Home Clinical Impression: Avulsion of skin Discharge Date/Time: 08/10/20 15:58 Instructions: DI for Avulsion Laceration (Not Requiring Sutures) Activity Restrictions/Additional Instructions: Thank you for trusting us with your care today. Please monitor for any signs and symptoms of infection such as extending redness, purulent drainage etcetera. Please follow-up with primary care provider if needed. Today your x-ray shows no acute fracture. We updated your tetanus and washed out your wound. Please come back to emergency department for any acute concerns. Prescriptions: No Action tramadol 50 mg tablet 50 mg PO TID Qty: 90 RF: 5 trazodone 50 mg tablet 50 mg PO BEDTIME Qty: 90 RF: 3 tizanidine 4 mg capsule 4 mg PO TID PRN (Reason: muscle spasticity) Qty: 180 RF: 1 prenat.vits,leslie,glm-udyr-eyenz Tablet 1 tab PO DAILY RF: 0 sertraline 100 mg tablet 100 mg PO DAILY Qty: 90 RF: 3 Referrals: Yamil Leroy MD [Primary Care Provider] - <Ricki Jennings MD - Last Filed: 08/13/20 18:59> [facility] I was immediately available in the department for consultation. This documentation has been reviewed and I agree with assessment and plan. Supervised by Ricki Jennings MD
[2020-08-10] MEDS: TET,DIPH,PERTUSS(ACELL),VAC/PF 0.5 ML SYRINGE IM (14:57)
== END 2020-08-10 15:58 | disposition home or self-care (01) ==
PROVIDERS: Emergency Provider Nurse Practitioner Family; PCP Student in an Organized Health Care Education/Training Program
DX: S61.412A Laceration without foreign body of left hand, initial encounter (principal); W26.8XXA Contact with other sharp object(s), not elsewhere classified, initial encounter; Z23 Encounter for immunization
CPT/HCPCS: 73130; 90471; 99283; 90715

== ENCOUNTER → 2020-08-11 10:17 | Outpatient (CLI) | payer OTHER, SELFPAY ==
--- NOTE | 2020-08-11 11:01 | DI.CT.S_ITS ---
PROCEDURE: CT ABDOMEN PELVIS WO/W CON INDICATIONS: RLQ abdominal pain TECHNIQUE: Optional 5 mm thick noncontrast images acquired from the diaphragm to the symphysis pubis. After the administration of intravenous contrast, 5 mm thick images acquired from the diaphragm to the symphysis pubis after a 10-minute delay. 2 mm thick coronal and sagittal reformats were then performed of the kidneys and ureters. For radiation dose reduction, the following was used: automated exposure control, adjustment of mA and/or kV according to patient size. COMPARISON: [facility], , PELVIC COMPLETE, 12/13/2019, 11:41. [facility], , PELVIC COMPLETE, 07/11/2020, 10:46. [facility], CT, CT ABDOMEN PELVIS W CON, 09/22/2019, 18:48. FINDINGS: Image quality: Excellent. Lung bases: Lung bases are clear. Heart size is normal. Urinary system: Both kidneys are normal in size, without hydronephrosis or right nephrolithiasis on pre-contrast images. Tiny 1 mm punctate density in the left kidney likely representing a nonobstructing renal stone. No perinephric fat stranding. There is normal bilateral renal enhancement. Renal calyces appear normal in morphology when filled with contrast. Opacified portions of both ureters demonstrate normal caliber. Bladder wall thickness is normal. No calcified bladder stones. Other solid organs: Liver is normal in size and enhancement. Gallbladder is unremarkable . Biliary system is non dilated. Pancreas enhances normally. Spleen is normal in size and enhancement. No adrenal nodules. Peritoneum and bowel: Bowel loops demonstrate normal wall thickness and caliber. No free fluid or air. Nodes and vessels: No retroperitoneal or mesenteric adenopathy by size criteria. Aorta and inferior vena cava are normal in size. Abdominal wall: No ventral hernias. Pelvis: No pathologic free pelvic fluid. No inguinal hernias or adenopathy. Reproductive organs are unremarkable as imaged. Bones: No suspicious bony lesions. No vertebral body compression fractures. IMPRESSION: 1. Tiny 1 mm nonobstructing left nephrolith. 2. Otherwise, no acute abnormalities identified in the abdomen or pelvis to explain patient's symptoms. If there is persistent clinical concern or localization of symptoms into the pelvis, consider further evaluation with pelvic ultrasound to better delineate the reproductive organs. Dictated by: Vinh Washburn M.D. on 08/11/2020 at 12:55 Approved by: Vihn Washburn M.D. on 08/11/2020 at 13:13
== END ==
PROVIDERS: PCP Student in an Organized Health Care Education/Training Program; Referring Provider Student in an Organized Health Care Education/Training Program; Visit Provider Student in an Organized Health Care Education/Training Program
DX: R10.31 Right lower quadrant pain (principal)
CPT/HCPCS: 74178; Q9967

== ENCOUNTER → 2020-08-30 16:16 | Outpatient (CLI) | payer OTHER, MEDICAID, SELFPAY ==
--- NOTE | 2020-08-30 16:17 | DI.US.S_ITS ---
PROCEDURE: US PELVIC COMPLETE INDICATIONS: RLQ abdominal pain TECHNIQUE: Real-time scanning was performed of the pelvic organs, with image documentation. Additional endovaginal scanning was necessary due to incomplete visualization of the adnexal and endometrial structures by transabdominal scanning. COMPARISON: [facility], , US PELVIC COMPLETE, 05/09/2020, 20:10. [facility], , US PELVIC COMPLETE, 12/13/2019, 11:41. [facility], US, US PELVIC COMPLETE, 09/22/2019, 20:23. [facility], CT, CT ABDOMEN PELVIS W CON, 09/22/2019, 18:48. [facility], CT, CT ABDOMEN PELVIS WO/W CON, 08/11/2020, 10:28. [facility], , US PELVIC COMPLETE, 07/11/2020, 10:46. FINDINGS: Transabdominal scanning: Limited scanning through the kidneys shows no hydronephrosis. No pathologic free abdominal or pelvic fluid. Endovaginal scanning: Uterus: Uterus is normal in size at 8.4 x 4.1 x 5.6 cm. The endometrium measures 9 mm in combined thickness. A possible endometrial polyp is seen that measures up to 1.5 cm. Ovaries: The right ovary measures 3 x 1.4 x 2.1 cm. The left ovary measures 3.1 x 1.9 x 1.9 cm. The ovaries have a normal sonographic appearance. No adnexal masses are seen. Normal appearing arterial waveforms are confirmed to each ovary. IMPRESSION: There is an apparent 1.5 cm endometrial polyp. If clinically appropriate, please consider sonohysterogram for further evaluation. Normal appearing ovaries. Dictated by: Edwin Bravo M.D. on 08/31/2020 at 10:21 Approved by: Edwin Bravo M.D. on 08/31/2020 at 10:24
== END ==
PROVIDERS: PCP Student in an Organized Health Care Education/Training Program; Referring Provider Student in an Organized Health Care Education/Training Program; Visit Provider Student in an Organized Health Care Education/Training Program
DX: R10.31 Right lower quadrant pain (principal)
CPT/HCPCS: 76830; 76856

== ENCOUNTER → 2020-09-25 14:24 | Outpatient (CLI) | payer OTHER, MEDICAID, SELFPAY ==
[2020-09-25 15:37] LABS: COVID19 -Nasal RAPID Negative (Negative)
== END ==
PROVIDERS: PCP Student in an Organized Health Care Education/Training Program; Visit Provider Obstetrics & Gynecology
DX: Z01.812 Encounter for preprocedural laboratory examination (principal); Z20.828 Contact with and (suspected) exposure to other viral communicable diseases
CPT/HCPCS: 87635

== ENCOUNTER 2020-09-26 06:55 | Day surgery (SDC) | payer OTHER, MEDICAID, SELFPAY ==
[2020-09-25 09:39] VITALS: BMI 25.4
[2020-09-26] VITALS (14 sets, daily range): BP systolic 82–105; BP diastolic 45–65; PULSE 56–81; RESP 11–17; TEMP 36–36.6; O2SAT 97–99; BMI 25.4
--- NOTE | 2020-09-26 | PATH_ITS ---
[facility] Accession Number: [id number] . 01 Material submitted: . endometrium - ENDOMETRIAL POLYP . 02 Diagnosis: Endometrial Polyp: Portions of proliferative endometrium; negative for glandular hyperplasia, cytologic atypia, or malignancy. Some endometrial fragments demonstrate prominent vessels, suggestive of polyp, if clinical and imaging studies are concordant. MRV 10/02/2020 0947 Local . 02 Electronically signed: . Slime Da Silva MD, Pathologist NPI- [id number] . 01 Gross description: . ENDOMETRIAL POLYP: Received in formalin are minute fragments of mucoid and hemorrhagic material measuring 2.0 x 2.0 x 0.4 cm in aggregate. Submitted in toto in 2 cassettes. /JOSE 09/27/2020 2218 Local . 02 Pathologist provided ICD-10: N84.0 . 02 CPT . 379208 Performed at: 01 [facility] [address], [place], [place] [id number] MD Checo Restrepo MD Phone: [phone] Performed at: 02 [facility] [address] [place], [place] [id number] MD Tana Reed MD Phone: [phone]
[2020-09-26] MEDS: LACTATED RINGERS 1,000 ML 100 ML IV ×2 (07:45→09:09)
--- NOTE | 2020-09-26 07:46 | PM.PREOP ---
Pre-operative Note COVID-19 COVID-19 status: Negative Result date/Date tested (Pos, Neg/Pending): 09/26/20 Interval Note History & Physical reviewed/Exam performed by Physician: Yes Changes to H&P: No
--- NOTE | 2020-09-26 08:11 | SUR.OPER ---
Lithotomy on padded OR bed, head on pillow, arms secured on padded arm boards at <90 degrees abduction. Legs secured in padded yellow fins stirrups.
--- NOTE | 2020-09-26 08:34 | PM.OP.1 ---
Operative Date/Time/Diagnoses Date of procedure: 09/26/20 Time of procedure: 07:45 Pre-op diagnosis: Endometrial polyp Post-op diagnosis: same Procedure & Clinicians Procedure: operative hysteroscopy with polypectomy Same procedure as scheduled: Yes Indications: endometrial polyp causing pelvic pain Surgeon: Linda Pan Anesthesia Type: General Operative Notes Findings: normal vulva, vagina, cervix. Mildly anteverted uterus. Large endometrial polyp taking up most of the endometri Specimen(s): other ( Portions of endometrial polyp) Estimated Blood Loss (mL): 10 Procedure in detail: after informed consent was obtained, the patient was taken to the operating room were general anesthesia was obtained. She was prepped and draped in the dorsal lithotomy position in the normal sterile fashion, and a straight catheterization was performed. A test had been negative on admission. The speculum was placed in the vagina and the cervix easily visualized. The cervix was grasped on the anterior lip with a single-tooth tenaculum. The patient had premedicated with Cytotec, and Hegar dilators were used to gently and easily dilate the cervix to 7 mm. The diagnostic hysteroscope was inserted, the patient was noted to have a large endometrial polyp extending to the internal cervical os, attached to the posterior wall of the uterus. The polyp size was such that it was difficult to visualize around, and hysteroscope was removed and polyp forceps gently inserted into the uterus. These were used to grasp and remove the bulk of the endometrial polyp. The diagnostic hysteroscope was then reinserted, and the endometrial cavity was otherwise normal with both ostia visualized. Portions of polyp remained, and so the operative hysteroscope was gently introduced through the cervix into the endometrial cavity and used to cauterize the base of the polyp and remove the rest of the polyp tissue Without complication. A gentle D&C was performed to ensure removal of all the polyp tissue, and reinspection with the hysteroscope was normal. The hysteroscope was removed from the uterus and the tenaculum removed from the cervix with spontaneous hemostasis at the tenaculum sites. The speculum was removed from the vagina. The patient tolerated the procedure well and was taken to the PACU in stable condition. IVF: 800ccs LR EBL: <20ccs UOP: 130ccs clear urine at beginning of case Complications: none Post-operative Condition: stable Disposition: PACU Plan for aftercare: Routine postop care
[2020-09-26] MEDS: HYDROCODONE/ACET 5/325 TABLET 1 TAB PO ×2 (08:48→09:29)
[2020-09-26] MEDS: ONDANSETRON 4 MG/2 ML INJ IV (08:49)
[2020-09-26] MEDS: fentaNYL 100 MCG/2 ML INJ IV (09:14)
== END 2020-09-26 10:10 | disposition home or self-care (01) ==
PROVIDERS: PCP Student in an Organized Health Care Education/Training Program; Referring Provider Student in an Organized Health Care Education/Training Program; Visit Provider Obstetrics & Gynecology
PROC: 0UDB8ZZ Extraction of Endometrium, Via Natural or Artificial Opening Endoscopic (ICD-10-PCS; CPT 58558; principal; 2020-09-26 07:45)
DX: N84.0 Polyp of corpus uteri (principal); F41.9 Anxiety disorder, unspecified; G89.29 Other chronic pain; M54.5 Low back pain
CPT/HCPCS: 58558; 81025; J1100; J1885; J2250; J2405; J2704; J3010

== ENCOUNTER → 2022-01-07 15:18 | Outpatient (CLI) | payer OTHER, MEDICAID, SELFPAY ==
[2022-01-07 17:11] LABS: HCG Quantitative /Beta subunit 3.2 mIU/mL
== END ==
PROVIDERS: PCP Student in an Organized Health Care Education/Training Program; Referring Provider Obstetrics & Gynecology; Visit Provider Obstetrics & Gynecology
DX: N91.2 Amenorrhea, unspecified (principal)
CPT/HCPCS: 36415; 84702

== ENCOUNTER → 2022-01-09 12:12 | Outpatient (CLI) | payer OTHER, MEDICAID, SELFPAY ==
[2022-01-09 14:53] LABS: HCG Quantitative /Beta subunit 11.4 mIU/mL
== END ==
PROVIDERS: PCP Student in an Organized Health Care Education/Training Program; Referring Provider Obstetrics & Gynecology; Visit Provider Obstetrics & Gynecology
DX: N91.2 Amenorrhea, unspecified (principal)
CPT/HCPCS: 36415; 84702

== ENCOUNTER → 2022-01-11 13:10 | Outpatient (CLI) | payer OTHER, MEDICAID, SELFPAY | PROVIDERS: PCP Student in an Organized Health Care Education/Training Program; Referring Provider Obstetrics & Gynecology; Visit Provider Obstetrics & Gynecology | DX: N91.2 Amenorrhea, unspecified (principal) | CPT/HCPCS: 36415; 84702 ==

== ENCOUNTER → 2022-01-14 16:57 | Outpatient (CLI) | payer OTHER, MEDICAID, SELFPAY ==
[2022-01-14 17:58] LABS: HCG Quantitative /Beta subunit 279.9 mIU/mL
== END ==
PROVIDERS: PCP Student in an Organized Health Care Education/Training Program; Referring Provider Obstetrics & Gynecology; Visit Provider Obstetrics & Gynecology
DX: O36.80X0 Pregnancy with inconclusive fetal viability, not applicable or unspecified (principal)
CPT/HCPCS: 36415; 84702

== ENCOUNTER → 2022-01-16 15:22 | Outpatient (CLI) | payer OTHER, MEDICAID, SELFPAY ==
[2022-01-16 16:29] LABS: HCG Quantitative /Beta subunit 497.9 mIU/mL
== END ==
PROVIDERS: PCP Student in an Organized Health Care Education/Training Program; Referring Provider Obstetrics & Gynecology; Visit Provider Obstetrics & Gynecology
DX: O36.80X0 Pregnancy with inconclusive fetal viability, not applicable or unspecified (principal)
CPT/HCPCS: 36415; 84702

== ENCOUNTER → 2022-01-18 13:36 | Outpatient (CLI) | payer OTHER, MEDICAID, SELFPAY ==
[2022-01-18 15:25] LABS: HCG Quantitative /Beta subunit 908.9 mIU/mL
== END ==
PROVIDERS: PCP Student in an Organized Health Care Education/Training Program; Referring Provider Obstetrics & Gynecology; Visit Provider Obstetrics & Gynecology
DX: O26.21 Pregnancy care for patient with recurrent pregnancy loss, first trimester (principal); O26.899 Other specified pregnancy related conditions, unspecified trimester; R10.9 Unspecified abdominal pain; Z87.59 Personal history of other complications of pregnancy, childbirth and the puerperium
CPT/HCPCS: 36415; 84702

== ENCOUNTER → 2022-01-21 14:16 | Outpatient (CLI) | payer OTHER, MEDICAID, SELFPAY ==
[2022-01-21 15:03] LABS: HCG Quantitative /Beta subunit 2695.1 mIU/mL
== END ==
PROVIDERS: PCP Student in an Organized Health Care Education/Training Program; Referring Provider Obstetrics & Gynecology; Visit Provider Obstetrics & Gynecology
DX: O36.80X0 Pregnancy with inconclusive fetal viability, not applicable or unspecified (principal)
CPT/HCPCS: 36415; 84702

== ENCOUNTER → 2022-01-23 16:04 | Outpatient (CLI) | payer OTHER, MEDICAID, SELFPAY | PROVIDERS: PCP Student in an Organized Health Care Education/Training Program; Referring Provider Obstetrics & Gynecology; Visit Provider Obstetrics & Gynecology | DX: O36.80X0 Pregnancy with inconclusive fetal viability, not applicable or unspecified (principal) | CPT/HCPCS: 36415; 84702 ==

== ENCOUNTER → 2022-01-24 09:59 | Outpatient (CLI) | payer OTHER, MEDICAID, SELFPAY ==
[2022-01-24 10:42] LABS: Add Manual Diff / Slide Review NO; Basophils Absolute Auto 0 /uL (0-100); Basophils Percent Auto 0.5 % (0-2); Eosinophils Absolute Auto 100 /uL (0-450); Eosinophils Percent Auto 1.4 % (2-4); Hematocrit 35.9 % (36-46); Lymphocytes Absolute Auto 1200 /uL (1100-4500); Lymphocytes Percent Auto 14.2 % (25-40); Mean Corpuscular HGB Conc 33.5 % (30-36); Mean Corpuscular Hemoglobin 27.5 PG (26-34); Mean Corpuscular Volume 82.2 fL (80-100); Monocytes Absolute Auto 700 /uL (0-900); Monocytes Percent Auto 8.4 % (3-14); Neutrophils Absolute Auto 6400 /uL (1500-7000); Neutrophils Percent Auto 75.5 % (50-75); Platelet Count 258 X10^3/uL (150-400); Red Blood Cell Count 4.37 X10^6/uL (4.0-5.2); Red Cell Distribution Width 16.1 % (11.6-14.8); White Blood Cell Count 8.4 X10^3/uL (4.5-11.0)
[2022-01-24 12:22] LABS: Alanine Aminotransferase 10 IU/L (<35); Albumin 4.3 g/dL (3.5-5.0); Albumin Globulin Ratio 1.4 (1.0-2.8); Alkaline Phosphatase 61 U/L (38-126); Aspartate Aminotransferase 23 IU/L (14-36); BUN Creatinine Ratio 13.2 (6-22); Bilirubin Total 0.3 mg/dL (0.2-1.3); Blood Urea Nitrogen 7 mg/dL (7-17); Calcium 8.8 mg/dL (8.4-10.2); Carbon Dioxide 27 mmol/L (22-32); Chloride 104 mmol/L (98-107); Estimated Glomerular Filt Rate > 60 mL/min (>60); Globulin 3.1 g/dL (1.7-4.1); Glucose 93 mg/dL (70-100); HEMOLYSIS < 15 (0-50); Potassium 4.2 mmol/L (3.4-5.1); Sodium 137 mmol/L (137-145); Total Protein 7.4 g/dL (6.3-8.2)
[2022-01-24 12:32] LABS: HCG Quantitative /Beta subunit 6511.8 mIU/mL
== END ==
PROVIDERS: PCP Student in an Organized Health Care Education/Training Program; Referring Provider Obstetrics & Gynecology; Visit Provider Obstetrics & Gynecology
DX: O00.90 Unspecified ectopic pregnancy without intrauterine pregnancy (principal)
CPT/HCPCS: 36415; 80053; 84702; 85025

== ENCOUNTER → 2022-01-28 11:47 | Outpatient (CLI) | payer OTHER, MEDICAID, SELFPAY ==
[2022-01-28 13:19] LABS: HCG Quantitative /Beta subunit 10497 mIU/mL
== END ==
PROVIDERS: PCP Student in an Organized Health Care Education/Training Program; Referring Provider Obstetrics & Gynecology; Visit Provider Obstetrics & Gynecology
DX: O00.90 Unspecified ectopic pregnancy without intrauterine pregnancy (principal)
CPT/HCPCS: 36415; 84702

== ENCOUNTER → 2022-01-31 14:32 | Outpatient (CLI) | payer OTHER, MEDICAID, SELFPAY ==
[2022-01-31 15:10] LABS: Alanine Aminotransferase 11 IU/L (<35); Albumin 4.2 g/dL (3.5-5.0); Albumin Globulin Ratio 1.4 (1.0-2.8); Alkaline Phosphatase 60 U/L (38-126); Aspartate Aminotransferase 23 IU/L (14-36); BUN Creatinine Ratio 10.9 (6-22); Bilirubin Total 0.1 mg/dL (0.2-1.3); Blood Urea Nitrogen 6 mg/dL (7-17); Calcium 8.8 mg/dL (8.4-10.2); Carbon Dioxide 31 mmol/L (22-32); Chloride 102 mmol/L (98-107); Estimated Glomerular Filt Rate > 60 mL/min (>60); Glucose 91 mg/dL (70-100); HEMOLYSIS < 15 (0-50); Potassium 3.5 mmol/L (3.4-5.1); Sodium 139 mmol/L (137-145); Total Protein 7.2 g/dL (6.3-8.2)
[2022-01-31 15:25] LABS: HCG Quantitative /Beta subunit 10530 mIU/mL
== END ==
PROVIDERS: PCP Student in an Organized Health Care Education/Training Program; Referring Provider Obstetrics & Gynecology; Visit Provider Obstetrics & Gynecology
DX: O00.90 Unspecified ectopic pregnancy without intrauterine pregnancy (principal)
CPT/HCPCS: 36415; 80053; 84702

== ENCOUNTER → 2022-02-05 11:17 | Outpatient (CLI) | payer OTHER, MEDICAID, SELFPAY ==
[2022-02-05 13:54] LABS: HCG Quantitative /Beta subunit 9109.9 mIU/mL
== END ==
PROVIDERS: PCP Student in an Organized Health Care Education/Training Program; Referring Provider Obstetrics & Gynecology; Visit Provider Obstetrics & Gynecology
DX: O00.102 Left tubal pregnancy without intrauterine pregnancy (principal)
CPT/HCPCS: 36415; 84702

== ENCOUNTER → 2022-02-08 11:55 | Outpatient (CLI) | payer OTHER, MEDICAID, SELFPAY ==
[2022-02-08 12:45] LABS: HCG Quantitative /Beta subunit 6621.2 mIU/mL
== END ==
PROVIDERS: PCP Student in an Organized Health Care Education/Training Program; Referring Provider Obstetrics & Gynecology; Visit Provider Obstetrics & Gynecology
DX: O00.102 Left tubal pregnancy without intrauterine pregnancy (principal)
CPT/HCPCS: 36415; 84702

== ENCOUNTER 2022-02-15 15:51 | Day surgery (SDC) | payer OTHER, MEDICAID, SELFPAY ==
[2022-02-15] VITALS (11 sets, daily range): BP systolic 109–134; BP diastolic 59–72; PULSE 69–89; RESP 10–18; TEMP 36.3–37; O2SAT 98–100; BMI 22.6
--- NOTE | 2022-02-15 | PATH_ITS ---
[facility] Accession Number: [id number] . 01 Material submitted: . fallopian tube - LEFT FALLOPIAN TUBE, PRODUCTS OF CONCEPTION . 01 Clinical history: . LEFT OVARY RUPTURE, ECTOPIC . 02 Diagnosis: Left Fallopian Tube, Products of Conception: Segment of fallopian tube with rupture and associated products of conception, consistent with ectopic gestation. MRV 02/20/2022 0921 Local . 02 Electronically signed: . Slime Da Silva MD, Pathologist NPI- [id number] . 01 Gross description: . Received in formalin and labeled with the patient's name left fallopian tube and products of conception and consists of a ruptured tubular structure consistent with fallopian tube with fragments aggregating to 6.7 x 4.1 x 3.2 cm. The ruptured tube is filled with red-brown hemorrhagic material and serial sectioning reveals a red hemorrhagic cut surface. No tissue or fimbriae are identified. [employer] sections are submitted as follows: . A1-A2: [employer] full thickness cross sections. A3: [employer] uninvolved fallopian tube. ([id number]) /[facility] 02/19/2022 1828 Local . 02 Pathologist provided ICD-10: O00.109 . 02 CPT . 592712 Specimen Comment: A courtesy copy of this report has been sent to [phone] Performed at: 01 [facility] [address] [id number] MD Checo Restrepo MD Phone: [phone] Performed at: 02 [facility] [address] [place], [place] [id number] MD Tana Reed MD Phone: [phone]
--- NOTE | 2022-02-15 16:04 | DI.US.S_ITS ---
PROCEDURE: US OB <= 14 WEEKS FETUS INDICATIONS: known L tubal ectopic treated medically with increase pain OUTSIDE/PRIOR DATING DATA: Last menstrual period (LMP): Unknown. LMP-based estimated date of delivery (RENATO): Unknown. First dating scan (date and location): 02/15/2022. Estimated date of delivery (RENATO) from first dating scan: Not applicable. TECHNIQUE: Real-time scanning was performed of the fetus and maternal pelvic organs, with image documentation. Endovaginal scanning was also performed to better visualize the fetus and maternal ovaries. COMPARISON: [facility], , PELVIC COMPLETE, 01/21/2022, 14:08. [facility], 01/24/2022, 8:29. [facility], , PELVIC COMPLETE, 02/08/2022, 13:01. [facility], , US OB <= 14 WEEKS FETUS, 05/18/2020, 9:21. FINDINGS: Embryo: There is a focus within the left adnexa demonstrating heterogeneous echogenicity. There is an appearance of what appears to be a crown-rump length measuring approximately 6 weeks 0 days. Surrounding fluid is present. No visualized heart tones. IMPRESSION: Heterogeneous appearance within the left adnexa with surrounding fluid and appearance of crown-rump length highly suspicious for ectopic with suspected at least partial rupture. The above findings were discussed with Dr. Nicolas Bosch on 02/15/2022 at 4:49 p.m. We strive to produce accurate, complete, and clear reports of imaging services. To assist us in improving patient care, this report was composed using standard report templates and voice recognition software. Therefore, it may contain abnormal punctuation, insertions and/or omissions. Occasional wrong-word or sound-alike substitutions may occur. Though we review the report and make efforts to correct it, we do recommend that the report be read carefully in proper context to recognize any text inaccuracies. Dictated by: Romy Bernal M.D. on 02/15/2022 at 16:47 Approved by: Romy Bernal M.D. on 02/15/2022 at 16:52
--- NOTE | 2022-02-15 16:57 | ED.GENADULT ---
HPI - General Adult General Chief complaint: Abdominal Pain Stated complaint: Left Ovary Rupture Time Seen by Provider: 02/15/22 16:02 Source: patient Mode of arrival: Ambulatory History of Present Illness HPI narrative: Patient is a 36-year-old female. Has a known left tubal ectopic . Is being followed by OB. Is currently being medically managed with a reported decrease in her beta-hCG. Has had 2 doses of methotrexate. Over the past 24 hours has had increasing pain to her left lower quadrant. No vaginal bleeding. No fevers. No change in bowel habits. Contacted the OB provider who instructed her to come to the emergency department for concerns of a ruptured ectopic. Related Data Home Medications Medication Instructions Recorded Confirmed acetaminophen 2 tab PO Q6H PRN 09/26/20 02/08/22 Previous Rx's Medication Instructions Recorded lidocaine 4% 1 ea TOPICAL DAILY #99 % 02/22/21 promethazine 25 mg tablet 25 mg PO TID PRN #90 tab 08/20/21 alprazolam 0.25 mg tablet 0.25 - 0.5 mg PO BID PRN #10 tab 08/21/21 tizanidine 4 mg capsule 4 mg PO TID PRN #90 cap 11/16/21 tramadol 50 mg tablet 50 mg PO TID #90 tab 01/07/22 venlafaxine 37.5 mg 37.5 mg PO DAILY #30 cap 01/07/22 capsule,extended release 24 hr fluconazole 150 mg tablet 150 mg PO DAILY #1 tab 01/30/22 (Diflucan) Allergies Allergy/AdvReac Type Severity Reaction Status Date / Time ondansetron AdvReac Mild Constipatio Verified 02/15/22 16:39 n Review of Systems Constitutional Constitutional: Denies fever(s) Gastrointestinal Gastrointestinal: Reports as per HPI and Reports system reviewed and no additional complaints, except as documented Genitourinary Genitourinary: Reports system reviewed and no additional complaints, except as documented and Reports as per HPI Integumentary/Breasts Skin/Breast: Reports system reviewed and no additional complaints, except as documented Hematologic/Lymphatic On Anticoagulants: No Patient History Medical History Anxiety (~2015) Chicken pox (~1990) Chronic back pain (~2014) Chronic low back pain (2014) Degenerative disc disease Depression (~2014) Ectopic H/O nephrolithotomy with removal of calculi Kidney stones (~2012) PTSD (post-traumatic stress disorder) (~2015) Surgical History Anesthesia H/O dilation and curettage History of ankle surgery (~04/2008) History of appendectomy (~09/1999) History of section (~08/2007) History of surgery (~12/2014) Hx of breast reduction, elective Status post laparoscopic surgery (~09/2018) Family History Brother Hypertension Hyperlipidemia Mental health problem Grandfather Congestive heart failure Diabetes mellitus Hypertension Hyperlipidemia Stroke Grandmother Mental health problem Grandfather Cancer Diabetes mellitus History of heart disease Grandmother Diabetes mellitus Congestive heart failure Hyperlipidemia Hypertension Stroke Mother Hypertension Social History household members: spouse Smoking Status: Former smoker alcohol intake: former Smoking Status: Former smoker alcohol intake frequency: 0-2 drinks per day Substance Use Type: marijuana Exam Initial Vital Signs Initial Vital Signs: Vital Signs Temperature 97.9 F 02/15/22 16:40 Pulse Rate 89 02/15/22 16:40 Respiratory Rate 18 02/15/22 16:40 Blood Pressure 134/70 02/15/22 16:40 Pulse Oximetry 100 02/15/22 16:40 HENMT Head: normal to inspection and normocephalic Resp Effort & Inspection: normal respiratory effort Cardio Rate: regular rate GI Inspection: normal to inspection and non-distended Skin General: no rashes or lesions noted Extrem General: normal to inspection and capillary refill normal Course Orders Ordered: ED Orders 02/15/22 16:04 US transvaginal Stat 02/15/22 16:45 Basic Metabolic Panel Stat Complete Blood Count AUTO DIFF Stat HCG Quantitative /Beta subunit Stat Ketones (Beta-Hydroxybutyrate) Stat Type and Screen Stat 02/15/22 17:01 COVID19 -Nasal RAPID/Pre-Proc Stat Cefazolin Sodium/Dextrose (Cefazolin 2 Gm/20 Ml Syringe) 2 gm IV NOW ONE Stop: 02/15/22 18:36 Sodium Chloride (Normal Saline 0.9%) 1,000 mls @ 125 mls/hr IV CONT SHAKA Last Infusion: 02/15/22 18:25 Dose: 0 mls/hr Documented by: Admin: 02/15/22 17:06 Dose: 125 mls/hr Documented by: IKE Lactated Ringer's (Lactated Ringers) 1,000 mls @ 100 mls/hr IV CONT SHAKA Discontinued Medications Hydromorphone HCl (Hydromorphone 0.5 Mg Inj) 0.5 mg IV NOW ONE Stop: 02/15/22 18:07 Last Admin: 02/15/22 18:14 Dose: 0.5 mg Documented by: ROSY Morphine Sulfate (Morphine 4 Mg/Ml Inj) 4 mg IV NOW ONE Stop: 02/15/22 16:58 Last Admin: 02/15/22 17:06 Dose: 4 mg Documented by: IKE Ondansetron HCl (Ondansetron 4 Mg/2 Ml Inj) 4 mg IV NOW ONE Stop: 02/15/22 16:58 Last Admin: 02/15/22 17:06 Dose: 4 mg Documented by: IKE Vital Signs Vital signs: Vital Signs - 8 hr 02/15/22 16:40 Temperature 97.9 F Pulse Rate 89 Respiratory Rate 18 Blood Pressure 134/70 Pulse Oximetry 100 Medical Decision Making Lab Data Lab results reviewed: Yes I reviewed the patient's lab results. Result diagrams: 02/15/22 16:45 02/15/22 16:45 Labs: Lab Results 02/15/22 02/15/22 02/15/22 Range/Units 16:45 16:45 16:45 WBC 8.9 (4.5-11.0) X10^3/uL RBC 3.98 L (4.0-5.2) X10^6/uL Hgb 10.6 L (12.0-16.0) g/dL Hct 32.7 L (36-46) % MCV 82.2 (80-100) fL MCH 26.7 (26-34) PG MCHC 32.5 (30-36) % RDW 15.4 H (11.6-14.8) % Plt Count 367 (150-400) X10^3/uL Neut % (Auto) 68.6 (50-75) % Lymph % (Auto) 20.9 L (25-40) % Canyon % (Auto) 8.5 (3-14) % Eos % (Auto) 1.0 L (2-4) % Baso % (Auto) 1.0 (0-2) % Neut # (Auto) 6100 (9438-6552) /uL Lymph # (Auto) 1900 (2674-1492) /uL Canyon # (Auto) 800 (0-900) /uL Eos # (Auto) 100 (0-450) /uL Baso # (Auto) 100 (0-100) /uL Sodium 138 (137-145) mmol/L Potassium 3.8 (3.4-5.1) mmol/L Chloride 104 (98-107) mmol/L Carbon Dioxide 31 (22-32) mmol/L BUN 6 L (7-17) mg/dL Creatinine 0.54 (0.52-1.04) mg/dL Estimated GFR > 60 (>60) mL/min BUN/Creatinine Ratio 11.1 (6-22) Glucose 97 (70-100) mg/dL Calcium 8.9 (8.4-10.2) mg/dL HCG, Quant 770.8 mIU/mL Ketones 0.07 (<0.27) mmol/L Blood Type Antibody Screen 02/15/22 Range/Units 16:45 WBC (4.5-11.0) X10^3/uL RBC (4.0-5.2) X10^6/uL Hgb (12.0-16.0) g/dL Hct (36-46) % MCV (80-100) fL MCH (26-34) PG MCHC (30-36) % RDW (11.6-14.8) % Plt Count (150-400) X10^3/uL Neut % (Auto) (50-75) % Lymph % (Auto) (25-40) % Canyon % (Auto) (3-14) % Eos % (Auto) (2-4) % Baso % (Auto) (0-2) % Neut # (Auto) (4415-0254) /uL Lymph # (Auto) (8540-3193) /uL Canyon # (Auto) (0-900) /uL Eos # (Auto) (0-450) /uL Baso # (Auto) (0-100) /uL Sodium (137-145) mmol/L Potassium (3.4-5.1) mmol/L Chloride (98-107) mmol/L Carbon Dioxide (22-32) mmol/L BUN (7-17) mg/dL Creatinine (0.52-1.04) mg/dL Estimated GFR (>60) mL/min BUN/Creatinine Ratio (6-22) Glucose (70-100) mg/dL Calcium (8.4-10.2) mg/dL HCG, Quant mIU/mL Ketones (<0.27) mmol/L Blood Type O Positive Antibody Screen Negative Imaging Data US - OB: Radiologist's Impression: [address] [address] Ultrasound Report Signed Patient: Diana Toscano MR#: [id number] : 1985 Acct:[id number] Age/Sex: 36 / F Date of Service: 02/15/22 Loc: ED Accession Number: [id number] ?? Procedure: US transvaginal Ordering Provider: Nicolas Bosch D.O. PROCEDURE:? US OB <= 14 WEEKS FETUS ? INDICATIONS:? known L tubal ectopic treated medically with increase pain ? OUTSIDE/PRIOR DATING DATA:? Last menstrual period (LMP):? Unknown.? LMP-based estimated date of delivery (RENATO):? Unknown.? First dating scan (date and location):? 02/15/2022.? Estimated date of delivery (RENATO) from first dating scan:? Not applicable. ? ? TECHNIQUE:? Real-time scanning was performed of the fetus and maternal pelvic organs, with image documentation.? Endovaginal scanning was also performed to better visualize the fetus and maternal ovaries.? ? COMPARISON:? [facility], , PELVIC COMPLETE, 01/21/2022, 14:08.? [facility], , PELVIC COMPLETE, 01/24/2022, 8:29.? [facility], , PELVIC COMPLETE, 02/08/2022, 13:01.? [facility], , US OB <= 14 WEEKS FETUS, 05/18/2020, 9:21. ? FINDINGS:? ? Embryo:? There is a focus within the left adnexa demonstrating heterogeneous echogenicity.? There is an appearance of what appears to be a crown-rump length measuring approximately 6 weeks 0 days.? Surrounding fluid is present.? No visualized heart tones. ? ? ? IMPRESSION:? Heterogeneous appearance within the left adnexa with surrounding fluid and appearance of crown-rump length highly suspicious for ectopic with suspected at least partial rupture. ? The above findings were discussed with Dr. Nicolas Bosch on 02/15/2022 at 4:49 p.m. ? We strive to produce accurate, complete, and clear reports of imaging services. To assist us in improving patient care, this report was composed using standard report templates and voice recognition software. Therefore, it may contain abnormal punctuation, insertions and/or omissions. Occasional wrong-word or sound-alike substitutions may occur. Though we review the report and make efforts to correct it, we do recommend that the report be read carefully in proper context to recognize any text inaccuracies. ? Dictated by: Romy Bernal M.D. on 02/15/2022 at 16:47 ? ? Approved by: Romy Bernal M.D. on 02/15/2022 at 16:52?? MDM Narrative Medical decision making narrative: Rh positive. Not anemic. Not febrile. Has an ultrasound concerning for potential ruptured left-sided ectopic . Discussed the case with Dr. Pan who sent the patient to the emergency department has been following her. Plan will be is to admit to the hospital for surgery and further evaluation and treatment. I did discuss this with the patient who expressed understanding and agreement as well. Discharge Plan Departure Patient Disposition: Admitted As Inpatient Clinical Impression: Ectopic Admit Date/Time: 02/15/22 16:58 Admit Provider: Linda Pan
[2022-02-15 17:00] LABS: Add Manual Diff / Slide Review NO; Basophils Absolute Auto 100 /uL (0-100); Eosinophils Absolute Auto 100 /uL (0-450); Hematocrit 32.7 % (36-46); Hemoglobin 10.6 g/dL (12.0-16.0); Lymphocytes Absolute Auto 1900 /uL (1100-4500); Lymphocytes Percent Auto 20.9 % (25-40); Mean Corpuscular HGB Conc 32.5 % (30-36); Mean Corpuscular Hemoglobin 26.7 PG (26-34); Mean Corpuscular Volume 82.2 fL (80-100); Monocytes Absolute Auto 800 /uL (0-900); Monocytes Percent Auto 8.5 % (3-14); Neutrophils Absolute Auto 6100 /uL (1500-7000); Neutrophils Percent Auto 68.6 % (50-75); Platelet Count 367 X10^3/uL (150-400); Red Blood Cell Count 3.98 X10^6/uL (4.0-5.2); Red Cell Distribution Width 15.4 % (11.6-14.8); White Blood Cell Count 8.9 X10^3/uL (4.5-11.0)
[2022-02-15] MEDS: ONDANSETRON 4 MG/2 ML INJ IV ×4 (17:06→21:29)
[2022-02-15] MEDS: SODIUM CHLORIDE 0.9% 1,000 ML 125 ML IV (17:06)
[2022-02-15] MEDS: MORPHINE 4 MG/ML INJ IV (17:06)
[2022-02-15 17:07] LABS: BUN Creatinine Ratio 11.1 (6-22); Blood Urea Nitrogen 6 mg/dL (7-17); Calcium 8.9 mg/dL (8.4-10.2); Carbon Dioxide 31 mmol/L (22-32); Chloride 104 mmol/L (98-107); Estimated Glomerular Filt Rate > 60 mL/min (>60); Glucose 97 mg/dL (70-100); HEMOLYSIS < 15 (0-50); Potassium 3.8 mmol/L (3.4-5.1); Sodium 138 mmol/L (137-145)
[2022-02-15 17:10] LABS: Ketones (Beta-Hydroxybutyrate) 0.07 mmol/L (<0.27)
[2022-02-15 17:26] LABS: HCG Quantitative /Beta subunit 770.8 mIU/mL
--- NOTE | 2022-02-15 17:32 | PM.GYNHP.1 ---
History of Present Illness History of Present Illness Reason for admission: ectopic Narrative: Diana Toscano is a 36 year old female with a history of 2 prior ectopic pregnancies, chemical SABs, and one section, presenting with a ruptured left ectopic . The patient had received one dose of methotrexate after extensive counselling 3 weeks ago, with a yolk sac without cardiac activity visualized in the tube. Her B-HCGs did not decrease appropriately and she received a second dose two weeks ago. She had been recovering appropriately until Friday when she had some sharp LLQ pain that resolved, with more severe pain developing and persisting this afternoon. She reports pelvic pain and pressure, with 10/10 pain but no dizziness or palpitations. Denies fevers or chills. History of CS, one prior laparoscopy, and appendectomy via mini lap. No allergies to medications and no objection to blood transfusion. [facility] Medical History Anxiety (~2015) Chicken pox (~1990) Chronic back pain (~2014) Chronic low back pain (2014) Degenerative disc disease Depression (~2014) Ectopic H/O nephrolithotomy with removal of calculi Kidney stones (~2012) PTSD (post-traumatic stress disorder) (~2015) Surgical History Anesthesia H/O dilation and curettage History of ankle surgery (~04/2008) History of appendectomy (~09/1999) History of section (~08/2007) History of surgery (~12/2014) Hx of breast reduction, elective Status post laparoscopic surgery (~09/2018) Family History Brother Hypertension Hyperlipidemia Mental health problem Grandfather Congestive heart failure Diabetes mellitus Hypertension Hyperlipidemia Stroke Grandmother Mental health problem Grandfather Cancer Diabetes mellitus History of heart disease Grandmother Diabetes mellitus Congestive heart failure Hyperlipidemia Hypertension Stroke Mother Hypertension Social History household members: spouse Smoking Status: Former smoker alcohol intake: former Meds Home Medications and Allergies Home Medications Medication Instructions Recorded Confirmed Type acetaminophen 2 tab PO Q6H PRN 09/26/20 02/08/22 History lidocaine 4% 1 ea TOPICAL DAILY #99 % 02/22/21 02/08/22 Rx promethazine 25 mg tablet 25 mg PO TID PRN #90 tab 08/20/21 02/08/22 Rx alprazolam 0.25 mg tablet 0.25 - 0.5 mg PO BID PRN #10 tab 08/21/21 02/08/22 Rx tizanidine 4 mg capsule 4 mg PO TID PRN #90 cap 11/16/21 02/08/22 Rx tramadol 50 mg tablet 50 mg PO TID #90 tab 01/07/22 02/08/22 Rx venlafaxine 37.5 mg 37.5 mg PO DAILY #30 cap 01/07/22 02/08/22 Rx capsule,extended release 24 hr fluconazole 150 mg tablet 150 mg PO DAILY #1 tab 01/30/22 02/08/22 Rx (Diflucan) Allergies Allergy/AdvReac Type Severity Reaction Status Date / Time ondansetron AdvReac Mild Constipatio Verified 02/15/22 16:39 n Review of Systems Constitutional Constitutional: Reports system reviewed and no additional complaints, except as documented Cardiovascular Cardiovascular: Reports system reviewed and no additional complaints, except as documented Respiratory Respiratory: Reports system reviewed and no additional complaints, except as documented Gastrointestinal Gastrointestinal: Reports as per HPI Genitourinary Genitourinary: Reports as per HPI Exam Vital Signs (past 8 hours): - 02/15/22 16:40 Temperature 97.9 F Pulse Rate 89 Respiratory Rate 18 Blood Pressure 134/70 Pulse Oximetry 100 Oxygen Delivery Method Room Air Const General: anxious GI Palpation: guarding and tender Objective Labs Result Diagrams: 02/15/22 16:45 02/15/22 16:45 Labs: Laboratory Results - last 24 hr 02/15/22 02/15/22 16:45 16:45 WBC 8.9 RBC 3.98 L Hgb 10.6 L Hct 32.7 L MCV 82.2 MCH 26.7 MCHC 32.5 RDW 15.4 H Plt Count 367 Neut % (Auto) 68.6 Lymph % (Auto) 20.9 L Swisher % (Auto) 8.5 Eos % (Auto) 1.0 L Baso % (Auto) 1.0 Neut # (Auto) 6100 Lymph # (Auto) 1900 Swisher # (Auto) 800 Eos # (Auto) 100 Baso # (Auto) 100 Sodium 138 Potassium 3.8 Chloride 104 Carbon Dioxide 31 BUN 6 L Creatinine 0.54 Estimated GFR > 60 BUN/Creatinine Ratio 11.1 Glucose 97 Calcium 8.9 Ketones 0.07 Assessment & Plan Assessment and plan (1) Ectopic : Problem details: This patient presents with a ruptured left ectopic . We discussed that failure of treatment is one of the risks of methotrexate management, and discussed that she requires laparoscopic left salpingectomy. We discussed the risk of damage to bowel and bladder especially given her prior scar tissue, and discussed risk of infection and hemorrhage. The patient vocalized understanding, informed consent was given, and informed consent was signed. All questions of the patient and her , who was at bedside, were answered. - Expediting transfer to OR for laparoscopy Qualifiers: Location of ectopic : tubal Intrauterine status: without intrauterine Laterality: left Qualified Code(s): O00.102 - Left tubal without intrauterine Status: Acute Time Spent With Patient Critical Care time: I spent a total of [] minutes of critical care time on this patient's care today; this time is exclusive of procedural time.
[2022-02-15 17:45] LABS: COVID19 -Nasal RAPID Negative (Negative)
[2022-02-15] MEDS: HYDROMORPHONE 0.5 MG INJ IV (18:14)
[2022-02-15] MEDS: LACTATED RINGERS 1,000 ML 100 ML IV (18:46)
[2022-02-15] MEDS: LACTATED RINGERS 1,000 ML 42 ML IV (19:00)
[2022-02-15] MEDS: HYDROMORPHONE 2 MG INJ ×3 (19:12→21:14)
[2022-02-15] MEDS: CEFAZOLIN 2 GM/20 ML SYRINGE IV (19:45)
--- NOTE | 2022-02-15 20:16 | SUR.OPER ---
Lithotomy on padded OR bed, head on pillow, arms secured on padded arm boards at <90 degrees abduction. Legs secured in padded yellow fins stirrups.
[2022-02-15] MEDS: BUPIVACAINE 0.25% (PF) 30 ML, EPINEPHrine 0.15 MG INJ (20:28)
--- NOTE | 2022-02-15 20:55 | P.OP_ITS ---
Operative Date/Time/Diagnoses Date of procedure: 02/15/22 Time of procedure: 08:00 Pre-op diagnosis: ruptured ectopic Post-op diagnosis: same Procedure & Clinicians Procedure: Procedures Operation Date: 02/15/22 17:45 Actual Procedure Side Surgeon p Laparoscopic Salpingectomy with Ectopic Extraction, left salpingectomy Linda Pan MD Indications: ruptured left tubal ectopic Surgeon: Linda Pan Maintenance Apprentice: Bebe Kenney Anesthesia Type: General Operative Notes Findings: Normal vulva, vagina and cervix. Normal right ovary. Normal remnant of right fallopian tube. Endometriosis across otherwise normal uterine fundus, endometriotic implants in posterior cul de sac. Grossly dilated and blood filled left fallopian tube with ruptured ampulla. Normal left ovary and otherwise normal abdominal survey. Approximately 250 ccs clot in pelvis. Closure Type: primary Specimen(s): left tube Estimated blood loss (mL): 300 Procedure in detail: After proper consents were obtained, the patient was taken to the operating room. General anesthesia was induced, and she was placed in the dorsal lithotomy position and prepped and draped in the normal sterile fashion. A mays catheter was placed, and a speculum placed in the patient's vagina. A single tooth tenaculum was applied to the anterior lip of the cervix, and hegar dilators used to dilate the cervix to 6mm with gentle pressure. A uterine manipulator was gently inserted and the balloon inflated to 5ccs. The tenaculum and speculum were removed from the vagina. Attention was then turned to the abdomen, where 1cc of .25% marcaine with epinephrine was used to infiltrate the skin just below the umbilicus. A scalpel was used to make a 5mm incision, the anterior abdominal wall was elevated, and a Veress needle gently inserted into the abdomen. Intraperitoneal placement was confirmed with a drop of normal saline passed through the veress needle with gravity, and CO2 used to insufflate the abdomen to 15mmHg. A 5mm trocar and sleeve were placed into the abdomen through this incision, using the towel clamps to elevate the abdominal wall, and intraperitoneal placement was confirmed visually with insertion of the laparoscope. Abdominal survey at this time was as above, and lateral ports were placed under direct visualization. These were placed on the left and right, 8cm from the umbilicus and after infiltration of 1mm of local anesthetic as above. The patient was placed in trendelenburg position, and a blunt probe used to gently push the bowel out of the pelvis. After an abdominal survey, .25% marcaine with epinephrine was used to infiltrate a midline area 2cm above the pubic symphesis. A scalpel was used to make a 3cm minilaparotomy, and a 12mm trocar and sleeve inserted under direct visualization into the abdominal cavity. A atraumatic grasper was used to elevate the left fallopian tube, and a powerseal device was used to amputate the visibly ruptured tube. This was placed in a small endocatch bag which had been placed through the 12mm port under direct visualization, and carefully deployed into the abdomen. The bag was closed and removed under direct visualization of all parts of the bag. The open end of the bag was removed through the port, the port was removed, and the endocatch bag then fully removed. The fascia at the minilaparotomy incision was closed using 0 vicryl in a running fashion. The abdomen was re-insufflated, hemostasis at the operative sites assured, and a repeat abdominal survey was normal. Repeat irrigation of the pelvis was performed. An endometriosis implant in the posterior cul de sac was ablated with the PowerSeal. The laparoscope was removed from the abdomen, the insufflating gas allowed to escape, and the ports removed. An interrupted suture was used at the mini-laparotomy to close the subcutaneous space in an interrupted fashion, and the skin at all 4 incisions closed with 4-0 biosyn, then covered with steri strips and bandages. The mays catheter was removed from the bladder and the manipulator removed from the uterus. The patient tolerated the procedure well, all counts were correct, 2g of Ancef were given at the beginning of the case. The patient was transported to PACU in stable condition. IVF: 1500ccs LR UOP: 400ccs clear yellow urine EBL: 300ccs Complications: none Post-operative Condition: stable Disposition: PACU Plan for aftercare: Repeat CBC, discharge if appropriate hgb drop
[2022-02-15 20:57] LABS: Add Manual Diff / Slide Review NO; Basophils Absolute Auto 0 /uL (0-100); Basophils Percent Auto 0.3 % (0-2); Eosinophils Absolute Auto 100 /uL (0-450); Eosinophils Percent Auto 0.6 % (2-4); Hematocrit 25.3 % (36-46); Hemoglobin 8.2 g/dL (12.0-16.0); Lymphocytes Absolute Auto 2500 /uL (1100-4500); Lymphocytes Percent Auto 18.8 % (25-40); Mean Corpuscular HGB Conc 32.3 % (30-36); Mean Corpuscular Hemoglobin 26.6 PG (26-34); Mean Corpuscular Volume 82.1 fL (80-100); Monocytes Absolute Auto 1100 /uL (0-900); Monocytes Percent Auto 8.5 % (3-14); Neutrophils Absolute Auto 9500 /uL (1500-7000); Neutrophils Percent Auto 71.8 % (50-75); Platelet Count 304 X10^3/uL (150-400); Red Blood Cell Count 3.09 X10^6/uL (4.0-5.2); Red Cell Distribution Width 14.9 % (11.6-14.8); White Blood Cell Count 13.2 X10^3/uL (4.5-11.0)
[2022-02-15] MEDS: fentaNYL 100 MCG/2 ML INJ IV (21:01)
[2022-02-15] MEDS: METOCLOPRAMIDE 10 MG/2 ML INJ IV (21:09)
--- NOTE | 2022-02-15 21:34 | SUR.PHASEI ---
VSS; patient states that nausea is better and taking ice chips.
[2022-02-15] MEDS: OXYCODONE/ACETAMINOPHEN 5/325 TABLET 1 TAB PO ×2 (21:36→22:16)
== END 2022-02-15 22:19 | disposition home or self-care (01) ==
LOC: ED 16:58 → AC 17:02 → OR 02-17 13:47
PROVIDERS: Emergency Provider Emergency Medicine; PCP Student in an Organized Health Care Education/Training Program; Referring Provider Emergency Medicine; Visit Provider Obstetrics & Gynecology
PROC: (CPT 59151; principal; 2022-02-15 17:45)
DX: O00.102 Left tubal pregnancy without intrauterine pregnancy (principal); Z3A.14 14 weeks gestation of pregnancy
CPT/HCPCS: 59151; 36415; 76830; 80048; 82009; 84702; 85025; 86850; 86900; 86901; 87635; 99284; C9803; G0378; J0171; J0690; J1170; J2250; J2270; J2405; J2704; J2765; J3010

== ENCOUNTER → 2022-02-21 11:15 | Outpatient (CLI) | payer OTHER, MEDICAID, SELFPAY ==
[2022-02-21 11:32] LABS: Add Manual Diff / Slide Review NO; Basophils Absolute Auto 0 /uL (0-100); Basophils Percent Auto 0.6 % (0-2); Eosinophils Absolute Auto 100 /uL (0-450); Eosinophils Percent Auto 1.6 % (2-4); Hematocrit 29.8 % (36-46); Hemoglobin 10.1 g/dL (12.0-16.0); Lymphocytes Absolute Auto 2100 /uL (1100-4500); Lymphocytes Percent Auto 26.6 % (25-40); Mean Corpuscular HGB Conc 33.9 % (30-36); Mean Corpuscular Hemoglobin 27.4 PG (26-34); Mean Corpuscular Volume 80.8 fL (80-100); Monocytes Absolute Auto 700 /uL (0-900); Monocytes Percent Auto 9.3 % (3-14); Neutrophils Absolute Auto 4800 /uL (1500-7000); Neutrophils Percent Auto 61.9 % (50-75); Platelet Count 419 X10^3/uL (150-400); Red Blood Cell Count 3.68 X10^6/uL (4.0-5.2); Red Cell Distribution Width 15.1 % (11.6-14.8); White Blood Cell Count 7.8 X10^3/uL (4.5-11.0)
[2022-02-21 12:16] LABS: HCG Quantitative /Beta subunit 49.4 mIU/mL
== END ==
PROVIDERS: PCP Student in an Organized Health Care Education/Training Program; Referring Provider Obstetrics & Gynecology; Visit Provider Obstetrics & Gynecology
DX: O00.102 Left tubal pregnancy without intrauterine pregnancy (principal)
CPT/HCPCS: 36415; 84702; 85025

== ENCOUNTER 2023-10-29 09:48 | Emergency (ER) | payer OTHER, SELFPAY ==
[2023-10-29 09:53] VITALS: BP 131/88; PULSE 101; RESP 15; TEMP 37.1; O2SAT 99; BMI 26.5
[2023-10-29 10:51] LABS: Influenza A - CEPHEID Flu A NEGATIVE (NEGATIVE); Influenza B - CEPHEID Flu B NEGATIVE (NEGATIVE); Respiratory Syncytial Virus Negative (Negative)
[2023-10-29 10:56] LABS: COVID-19 CEPHEID 4-PLEX PCR Negative (Negative)
--- NOTE | 2023-10-29 11:08 | ED.URI ---
HPI - URI/Sore Throat <Kathrin Georges PA-C - Last Filed: 10/29/23 11:25> General Chief Complaint: Upper Respiratory Symptoms Stated Complaint: persistant cough 2wks, sob, wheezy, not sleeping Time Seen by Provider: 10/29/23 11:06 Source: patient Mode of arrival: Ambulatory History of Present Illness HPI Narrative: 37-year-old female presents to the ED with 2 weeks of worsening cough. Patient also endorses some wheezing and headache. Patient states her symptoms are worse when lying down. Patient denies fever, chills, chest pain, nausea, vomiting, diarrhea. Denies history of asthma. Related Data Home Medications Medication Instructions Recorded Confirmed acetaminophen 2 tab PO Q6H PRN Pain, Mild 09/26/20 08/19/23 Previous Rx's Medication Instructions Recorded promethazine 25 mg tablet 25 mg PO TID PRN nausea and 11/01/22 vomiting #90 tabs alprazolam 0.25 mg tablet 0.25 - 0.5 mg (1 - 2 x 0.25 mg) PO 03/31/23 BID PRN Panic symptoms #10 tabs tizanidine 4 mg capsule 4 mg PO TID PRN muscle spasticity 08/19/23 #90 caps tramadol 50 mg tablet 100 mg (2 x 50 mg) PO BID PRN pain 08/19/23 #120 tabs venlafaxine 75 mg capsule,extended 75 mg PO DAILY #30 caps 08/19/23 release 24 hr tramadol 50 mg tablet 100 mg (2 x 50 mg) PO BID PRN pain 10/16/23 #120 tabs albuterol sulfate 90 mcg/actuation 2 puff inhalation Q4-6H PRN 10/29/23 aerosol inhaler shortness of breath or wheezing #6.7 grams benzonatate 200 mg capsule 200 mg PO TID PRN cough #30 caps 10/29/23 Allergies Allergy/AdvReac Type Severity Reaction Status Date / Time No Known Drug Allergies Allergy Verified 10/29/23 09:53 Review of Systems <Kathrin Georges PA-C - Last Filed: 10/29/23 11:25> Constitutional Constitutional: Denies chills, Denies fatigue, Denies fever(s), Denies frequent falls, Denies lethargy and Denies weakness Eyes Eyes: Denies change in vision, Denies eye discharge, Denies irritation and Denies loss of vision ENT Ears, Nose, Mouth, and Throat: Denies change in voice, Denies dizziness, Denies neck pain, Denies sore throat and Denies throat swelling Cardiovascular Cardiovascular: Denies chest pain, Denies irregular heart rhythm, Denies lightheadedness, Denies palpitations, Reports dyspnea, Denies dyspnea on exertion and Denies orthopnea Respiratory Respiratory: Reports cough, Reports dyspnea, Denies dyspnea on exertion and Reports wheezing Gastrointestinal Gastrointestinal: Denies abdominal pain, Denies change in bowel habits, Denies diarrhea, Denies nausea and Denies vomiting Musculoskeletal Musculoskeletal: Denies neck pain and Denies numbness Integumentary/Breasts Skin/Breast: Denies pruritus, Denies erythema, Denies rash and Denies wounds Neurologic Neurologic: Denies behavioral changes, Denies confusion, Denies dizziness, Denies frequent falls, Denies loss of vision, Denies numbness and Denies weakness Psychiatric Psychiatric: Denies anxiety, Denies behavioral changes, Denies confusion, Denies depression, Denies homicidal ideation and Denies suicidal ideation Endocrine Endocrine: Denies fatigue, Denies flushing and Denies palpitations Hematologic/Lymphatic Hematologic/Lymphatic: Denies easy bruising Allergic/Immunologic Allergic/Immunologic: Denies urticaria, Denies throat swelling and Reports wheezing Patient History <Kathrin Georges PA-C - Last Filed: 10/29/23 11:25> Medical History Ectopic H/O nephrolithotomy with removal of calculi Endometrial polyp Hydrosalpinx PTSD (post-traumatic stress disorder) (~2015) Anxiety (~2015) Chicken pox (~1990) Kidney stones (~2012) Ectopic Depression (~2014) Surgical History Hx of breast reduction, elective H/O dilation and curettage Anesthesia Status post laparoscopic surgery (~09/2018) History of surgery (~12/2014) History of ankle surgery (~04/2008) History of section (~08/2007) History of appendectomy (~09/1999) Family History Brother Hypertension Hyperlipidemia Mental health problem Grandfather Congestive heart failure Diabetes mellitus Hypertension Hyperlipidemia Stroke Grandmother Mental health problem Grandfather Cancer Diabetes mellitus History of heart disease Grandmother Diabetes mellitus Congestive heart failure Hyperlipidemia Hypertension Stroke Mother Hypertension Social History household members: spouse Smoking Status: Former smoker alcohol intake: former Smoking Status: Former smoker alcohol intake frequency: holidays/special occasions only Substance Use Type: marijuana Exam <Kathrin Georges PA-C - Last Filed: 10/29/23 11:25> Narrative Exam Narrative: Const General:?cooperative, healthy appearing and comfortable [facility] Head:?normal to inspection Ears:?hearing grossly normal bilaterally Nose:?external nose normal Face and sinus:?normal facial exam and sinuses nontender Mouth:?oral mucosae normal Throat:?posterior oropharynx normal Eyes General:?appearance normal, both eyes and all related structures Neck Neck:?normal visual inspection and no lymphadenopathy noted Resp Effort & Inspection:?normal respiratory effort Auscultation:? Mild, diffuse wheezes bilaterally. No other abnormal lung sounds. Good air entry and exit. Cardio Rate:?regular rate Rhythm:?regular rhythm Neuro General:?patient alert, patient awake and patient oriented x3 Initial Vital Signs Initial Vital Signs: Vital Signs Temperature 98.7 F 10/29/23 09:53 Pulse Rate 101 H 10/29/23 09:53 Respiratory Rate 15 10/29/23 09:53 Blood Pressure 131/88 10/29/23 09:53 Pulse Oximetry 99 10/29/23 09:53 Oxygen Delivery Method Room Air 10/29/23 09:53 <Asha Landon MD - Last Filed: 10/30/23 19:22> Initial Vital Signs Initial Vital Signs: Vital Signs Temperature 98.7 F 10/29/23 09:53 Pulse Rate 101 H 10/29/23 09:53 Respiratory Rate 15 10/29/23 09:53 Blood Pressure 131/88 10/29/23 09:53 Pulse Oximetry 99 10/29/23 09:53 Oxygen Delivery Method Room Air 10/29/23 09:53 Course <Kathrin Georges PA-C - Last Filed: 10/29/23 11:25> Orders Ordered: ED Orders 10/29/23 09:54 Covid-19 + FLU A/B + RSV - PCR Stat Vital Signs Vital signs: Vital Signs - 8 hr 10/29/23 09:53 Temperature 98.7 F Pulse Rate 101 H Respiratory Rate 15 Blood Pressure 131/88 Pulse Oximetry 99 Oxygen Delivery Method Room Air <Asha Landon MD - Last Filed: 10/30/23 19:22> Orders Ordered: ED Orders 10/29/23 09:54 Covid-19 + FLU A/B + RSV - PCR Stat Vital Signs Vital signs: Vital Signs - 8 hr 10/29/23 09:53 Temperature 98.7 F Pulse Rate 101 H Respiratory Rate 15 Blood Pressure 131/88 Pulse Oximetry 99 Oxygen Delivery Method Room Air MDM - URI/Sore Throat <Kathrin Georges PA-C - Last Filed: 10/29/23 11:25> Lab Data Labs: Lab Results 10/29/23 Range/Units 09:54 SARS-CoV-2 (PCR) Negative (Negative) Influenza A (RT-PCR) Flu a negative (NEGATIVE) Influenza B (RT-PCR) Flu b negative (NEGATIVE) RSV (PCR) Negative (Negative) MDM Narrative Medical decision making narrative: 37-year-old female presents to the ED with 2 weeks of worsening cough. Symptoms most consistent with viral URI. Respiratory swab negative for COVID-19, influenza, RSV. Prescribed albuterol inhaler, Tessalon Perles for symptoms. Recommend follow-up with PCP as soon as possible. Recommend good hydration. ED return precautions discussed with patient. Patient verbalized understanding. Medical records reviewed: Yes <Asha Landon MD - Last Filed: 10/30/23 19:22> Lab Data Labs: Lab Results 10/29/23 Range/Units 09:54 SARS-CoV-2 (PCR) Negative (Negative) Influenza A (RT-PCR) Flu a negative (NEGATIVE) Influenza B (RT-PCR) Flu b negative (NEGATIVE) RSV (PCR) Negative (Negative) Discharge Plan Departure Patient Disposition: Home Clinical Impression: Cough Qualifiers: Cough type: acute Qualified Code(s): R05.1 - Acute cough Instructions: DI for Viral Upper Respiratory Infection -- Adult Activity Restrictions/Additional Instructions: You were evaluated in the ED today for a cough and wheezing. The respiratory swab today tested negative for influenza, RSV, COVID-19. It appears that you might have a viral upper respiratory infection that is causing your symptoms. You are being prescribed an albuterol inhaler and Tessalon Perles for cough. Please take those as prescribed and stay well hydrated. Please follow-up with your PCP as soon as possible. Return to the ED if you have worsening symptoms, trouble breathing, chest pain. Prescriptions: New benzonatate 200 mg capsule 200 mg PO TID PRN (Reason: cough) Qty: 30 0RF albuterol sulfate 90 mcg/actuation HFA aerosol inhaler 2 puff inhalation Q4-6H PRN (Reason: shortness of breath or wheezing) Qty: 6.7 0RF No Action venlafaxine 75 mg capsule,extended release 24hr 75 mg PO DAILY Qty: 30 3RF tizanidine 4 mg capsule 4 mg PO TID PRN (Reason: muscle spasticity) Qty: 90 1RF Hold Instructions: tramadol 50 mg tablet 100 mg PO BID PRN (Reason: pain) Qty: 120 0RF promethazine 25 mg tablet 25 mg PO TID PRN (Reason: nausea and vomiting) Qty: 90 3RF alprazolam 0.25 mg tablet 0.25 - 0.5 mg PO BID PRN (Reason: Panic symptoms) Qty: 10 5RF tramadol 50 mg tablet 100 mg PO BID PRN (Reason: pain) Qty: 120 0RF acetaminophen 325 mg tablet 2 tab PO Q6H PRN (Reason: Pain, Mild) Referrals: Roopa Fowler MD [Primary Care Provider] - Stand Alone Forms: Patient Portal/API ED Sign-out <Asha Landon MD - Last Filed: 10/30/23 19:22> Cosign ED Attending Esha Attestation: I did not see this patient. I was available all times for consultation.
[2023-10-29 11:23] VITALS: BP 121/65; PULSE 84; RESP 22; TEMP 37.2; O2SAT 98
== END 2023-10-29 11:30 | disposition home or self-care (01) ==
PROVIDERS: Emergency Medicine; Emergency Provider Student in an Organized Health Care Education/Training Program; PCP Student in an Organized Health Care Education/Training Program
DX: R05.1 Acute cough (principal); Z20.822 Contact with and (suspected) exposure to COVID-19
CPT/HCPCS: 0241U; 99281; 99282

== ENCOUNTER 2023-11-02 15:29 | Emergency (ER) | payer OTHER, SELFPAY ==
[2023-11-02 15:35] VITALS: BP 130/90; PULSE 105; RESP 22; TEMP 36.6; O2SAT 98; BMI 27.4
--- NOTE | 2023-11-02 16:29 | DI.RAD.S_ITS ---
PROCEDURE: XR CHEST 2V INDICATIONS: cough TECHNIQUE: 2 views of the chest were acquired. COMPARISON: None. FINDINGS: Surgical changes and devices: None. Lungs and pleura: Lungs are clear. No pleural effusions or pneumothorax. Mediastinum: Mediastinal contours are normal. Heart size is normal. Bones and chest wall: No suspicious bony abnormalities. Soft tissues appear unremarkable. IMPRESSION: No acute cardiopulmonary abnormality is seen. No focal infiltrates are seen. Dictated by: Edwin Bravo M.D. on 11/02/2023 at 16:05 Approved by: Edwin Bravo M.D. on 11/02/2023 at 16:06
--- NOTE | 2023-11-02 16:42 | ED_ITS ---
HPI - URI/Sore Throat <Monty Kaufman PA-C - Last Filed: 11/02/23 18:31> General Chief Complaint: Upper Respiratory Symptoms Stated Complaint: lighheadedness,weakness, heart palpitations Time Seen by Provider: 11/02/23 15:48 Source: patient Mode of arrival: Ambulatory History of Present Illness HPI Narrative: This is a 37-year-old female presents to the emergency department due to a cough for the last 2-1/2 weeks. Reports some low-grade fevers 99? F. Reports nausea as well. Not on oral contraceptives. States she was here 4 days ago and received a COVID flu and RSV test was negative. Has been using albuterol and Afrin sprays without significant relief. States she was some ear fullness as well worse on the left. States that 1 time she noticed her heart rate in the 130s while at rest and states that she has increased fatigue with normal activity. Related Data Home Medications Medication Instructions Recorded Confirmed acetaminophen 2 tab PO Q6H PRN Pain, Mild 09/26/20 08/19/23 Previous Rx's Medication Instructions Recorded promethazine 25 mg tablet 25 mg PO TID PRN nausea and 11/01/22 vomiting #90 tabs alprazolam 0.25 mg tablet 0.25 - 0.5 mg (1 - 2 x 0.25 mg) PO 03/31/23 BID PRN Panic symptoms #10 tabs tizanidine 4 mg capsule 4 mg PO TID PRN muscle spasticity 08/19/23 #90 caps tramadol 50 mg tablet 100 mg (2 x 50 mg) PO BID PRN pain 08/19/23 #120 tabs venlafaxine 75 mg capsule,extended 75 mg PO DAILY #30 caps 08/19/23 release 24 hr tramadol 50 mg tablet 100 mg (2 x 50 mg) PO BID PRN pain 10/16/23 #120 tabs albuterol sulfate 90 mcg/actuation 2 puff inhalation Q4-6H PRN 10/29/23 aerosol inhaler shortness of breath or wheezing #6.7 grams benzonatate 200 mg capsule 200 mg PO TID PRN cough #30 caps 10/29/23 Allergies Allergy/AdvReac Type Severity Reaction Status Date / Time No Known Drug Allergies Allergy Verified 11/02/23 15:40 Review of Systems <Monty Kaufman PA-C - Last Filed: 11/02/23 18:31> Review of Systems Narrative: GENERAL: Reports fatigue, low-grade fevers Denies chills, , malaise, , sweats. HEENT: Reports cough, reports ear fullness, Denies sinus pain, sore throat, difficulty swallowing, dizziness. RESPIRATORY: Denies dyspnea, hemoptysis, sputum. CARDIOVASCULAR: Reports some ?pounding heartbeat? Denies chest pain, palpitations, orthopnea, edema, GASTROINTESTINAL: Reports nausea, denies vomiting, abdominal pain, diarrhea, constipation, melena. : Denies dysuria, frequency, incontinence, hematuria, urinary retention. MUSCULOSKELETAL: denies weakness, joint pain, or bony pain SKIN: Denies rash, skin lesions, or other NEUROLOGIC: Denies , , numbness, change in speech, confusion, seizures, incoordination. PSYCHIATRIC: No concerning psychosocial issues. 12 point review of systems is negative except for those stated above Patient History <Monty Kaufman PA-C - Last Filed: 11/02/23 18:31> Medical History Ectopic H/O nephrolithotomy with removal of calculi Endometrial polyp Hydrosalpinx PTSD (post-traumatic stress disorder) (~2015) Anxiety (~2015) Chicken pox (~1990) Kidney stones (~2012) Ectopic Depression (~2014) Surgical History Hx of breast reduction, elective H/O dilation and curettage Anesthesia Status post laparoscopic surgery (~09/2018) History of surgery (~12/2014) History of ankle surgery (~04/2008) History of section (~08/2007) History of appendectomy (~09/1999) Family History Brother Hypertension Hyperlipidemia Mental health problem Grandfather Congestive heart failure Diabetes mellitus Hypertension Hyperlipidemia Stroke Grandmother Mental health problem Grandfather Cancer Diabetes mellitus History of heart disease Grandmother Diabetes mellitus Congestive heart failure Hyperlipidemia Hypertension Stroke Mother Hypertension Social History household members: spouse Smoking Status: Former smoker alcohol intake: former Smoking Status: Former smoker alcohol intake frequency: holidays/special occasions only Substance Use Type: marijuana Exam <DOTTIE Figueroa Last Filed: 11/02/23 18:31> Narrative Exam Narrative: GENERAL: Well-developed patient, in mild distress. HEAD: Atraumatic. Normocephalic. EYES: Pupils equal round and reactive. Extraocular motions intact. No scleral icterus. No injection or drainage. ENT: Nose without bleeding, purulent drainage. Throat without erythema, tonsillar hypertrophy or exudate. Airway patent. NECK: Trachea midline. Non tender NEURO: AOx3. SKIN: No rash or erythema of visible areas CARDIOVASCULAR: Regular rate and rhythm without murmurs, gallops, or rubs. RESPIRATORY: Clear to auscultation. Breath sounds equal bilaterally. No wheezes, rales, or rhonchi. Initial Vital Signs Initial Vital Signs: Vital Signs Temperature 97.8 F 11/02/23 15:35 Pulse Rate 105 H 11/02/23 15:35 Respiratory Rate 22 11/02/23 15:35 Blood Pressure 130/90 11/02/23 15:35 Pulse Oximetry 98 11/02/23 15:35 Oxygen Delivery Method Room Air 11/02/23 15:35 <Nicolas Bosch DO - Last Filed: 11/02/23 18:33> Initial Vital Signs Initial Vital Signs: Vital Signs Temperature 97.8 F 11/02/23 15:35 Pulse Rate 105 H 11/02/23 15:35 Respiratory Rate 22 11/02/23 15:35 Blood Pressure 130/90 11/02/23 15:35 Pulse Oximetry 98 11/02/23 15:35 Oxygen Delivery Method Room Air 11/02/23 15:35 Course <Monty Kaufman PA-C - Last Filed: 11/02/23 18:31> Orders Ordered: ED Orders 11/02/23 16:29 XR chest 2V Stat 11/02/23 17:00 Respiratory Panel (Film Array) Stat 11/02/23 17:13 CBC Auto Diff [Complete Blood Count AUTO DIFF] Stat CMP [Comprehensive Metabolic Panel] Stat Discontinued Medications Acetaminophen (Acetaminophen 325 Mg Tablet) 650 mg PO NOW ONE Stop: 11/02/23 17:04 Last Admin: 11/02/23 17:06 Dose: 650 mg Documented By: RLS Vital Signs Vital signs: Vital Signs - 8 hr 11/02/23 15:35 11/02/23 18:23 Temperature 97.8 F 98.1 F Pulse Rate 105 H 85 Respiratory Rate 22 18 Blood Pressure 130/90 113/62 Pulse Oximetry 98 98 Oxygen Delivery Method Room Air Room Air <Nicolas Bosch DO - Last Filed: 11/02/23 18:33> Orders Ordered: ED Orders 11/02/23 16:29 XR chest 2V Stat 11/02/23 17:00 Respiratory Panel (Film Array) Stat 11/02/23 17:13 CBC Auto Diff [Complete Blood Count AUTO DIFF] Stat CMP [Comprehensive Metabolic Panel] Stat Discontinued Medications Acetaminophen (Acetaminophen 325 Mg Tablet) 650 mg PO NOW ONE Stop: 11/02/23 17:04 Last Admin: 11/02/23 17:06 Dose: 650 mg Documented By: NIXON Vital Signs Vital signs: Vital Signs - 8 hr 11/02/23 15:35 11/02/23 18:23 Temperature 97.8 F 98.1 F Pulse Rate 105 H 85 Respiratory Rate 22 18 Blood Pressure 130/90 113/62 Pulse Oximetry 98 98 Oxygen Delivery Method Room Air Room Air MDM - URI/Sore Throat <Monty Kaufman PA-C - Last Filed: 11/02/23 18:31> Lab Data 11/02/23 17:13 11/02/23 17:13 Labs: Lab Results 11/02/23 11/02/23 Range/Units 17:00 17:13 WBC 6.5 (4.5-11.0) X10^3/uL RBC 4.21 (4.0-5.2) X10^6/uL Hgb 10.8 L (12.0-16.0) g/dL Hct 32.0 L (36-46) % MCV 76.1 L (80-100) fL MCH 25.7 L (26-34) PG MCHC 33.8 (30-36) % RDW 16.7 H (11.6-14.8) % Plt Count 348 (150-400) X10^3/uL Neut % (Auto) 55.0 (50-75) % Lymph % (Auto) 30.0 (25-40) % [place] % (Auto) 12.5 (3-14) % Eos % (Auto) 1.7 L (2-4) % Baso % (Auto) 0.8 (0-2) % Neut # (Auto) 3600 (1717-4981) /uL Lymph # (Auto) 2000 (5392-9544) /uL [place] # (Auto) 800 (0-900) /uL Eos # (Auto) 100 (0-450) /uL Baso # (Auto) 100 (0-100) /uL Sodium 137 (137-145) mmol/L Potassium 4.1 (3.4-5.1) mmol/L Chloride 103 (98-107) mmol/L Carbon Dioxide 26 (22-32) mmol/L BUN 5 L (7-17) mg/dL Creatinine 0.54 (0.52-1.04) mg/dL Estimated GFR > 60 (>60) mL/min BUN/Creatinine Ratio 9.3 (6-22) Glucose 90 (70-100) mg/dL Calcium 9.3 (8.4-10.2) mg/dL Total Bilirubin 0.4 (0.2-1.3) mg/dL AST 22 (14-36) IU/L ALT 11 (<35) IU/L Alkaline Phosphatase 93 (38-126) U/L Total Protein 8.0 (6.3-8.2) g/dL Albumin 4.0 (3.5-5.0) g/dL Globulin 4.0 (1.7-4.1) g/dL Albumin/Globulin Ratio 1.0 (1.0-2.8) Chlamy pneumoniae PCR Not detected (Not Detect) Adenovirus (PCR) Not detected (Not Detect) B.parapertussis DNA PCR Not detected (Not Detecte) Coronavirus OC43 (PCR) Not detected (Not Detect) Coronavirus HKU1 (PCR) Not detected (Not Detect) Coronavirus 229E (PCR) Not detected (Not Detect) SARS-CoV-2 (PCR) Not detected (Not Detecte) Coronavirus NL63 (PCR) Not detected (Not Detect) Human Metapneumovir PCR Not detected (Not Detect) Influenza Type A (PCR) Not detected (Not Detect) Influenza Type B (PCR) Not detected (Not Detect) M. pneumoniae (PCR) Not detected (Not Detect) Parainfluenza 1 (PCR) Not detected (Not Detect) Parainfluenza 2 (PCR) Not detected (Not Detect) Parainfluenza 3 (PCR) Not detected (Not Detect) Parainfluenza 4 (PCR) Not detected (Not Detect) RSV (PCR) Not detected (Not Detect) Entero/Rhino (PCR) Not detected (Not Detect) Imaging Data Chest x-ray: Radiologist's Impression: [address] [address] XRay Report Signed Patient: Diana Patel MR#: [id number] : 1985 Acct:[id number] Age/Sex: 37 / F Date of Service: 11/02/23 Loc: ED Accession Number: [id number] Procedure: XR chest 2V Ordering Provider: Monty Kaufman P.A-C PROCEDURE: XR CHEST 2V INDICATIONS: cough TECHNIQUE: 2 views of the chest were acquired. COMPARISON: None. FINDINGS: Surgical changes and devices: None. Lungs and pleura: Lungs are clear. No pleural effusions or pneumothorax. Mediastinum: Mediastinal contours are normal. Heart size is normal. Bones and chest wall: No suspicious bony abnormalities. Soft tissues appear unremarkable. IMPRESSION: No acute cardiopulmonary abnormality is seen. No focal infiltrates are seen. Dictated by: Edwin Bravo M.D. on 11/02/2023 at 16:05 Approved by: Edwni Bravo M.D. on 11/02/2023 at 16:06 ECG Data Interpretation: 1536 EKG is normal sinus rhythm rate 97 and free of any signs of ischemia or ectopy. No ST segmental elevation or depression. No T wave inversions MDM Narrative Medical decision making narrative: ED course: This is a 37-year-old female presents emergency department due to URI symptoms. Respiratory panel negative. Chest x-ray negative. EKG ordered as patient reports some tachycardia which was unremarkable. Physical exam reassuring. Baseline lab work ordered which was all unremarkable. Patient does have baseline anxiety and depression and symptoms maybe related to this. Workup today was reassuring. Recommended follow up with the primary care provider. CC: Cough Complicating co-morbidities: Anxiety and depression Data collected from: Previous notes Medical records reviewed: Patient was seen here 4 days ago due to a 2 weeks of a worsening cough. No pertinent medical history. Respiratory swab negative for COVID influenza and RSV. Albuterol inhaler, Tessalon Perles prescribed. Differential considered, but not limited to: COVID, flu, RSV, anxiety, depression Exam documented above, pertinent findings include: Reassuring physical exam Lab Test results independently reviewed as above. Pertinent findings: All lab work unremarkable other than baseline anemia Imaging studies independently reviewed: Chest x-ray unremarkable Scores Used: None MIPS Elements: None Consultations: None Treatments: None Re-evaluations: None Discussion: Discussed plan with the patient was comfortable with the plan Diagnosis: Cough Disposition: see below, along with detailed discharge instructions that have been reviewed with patient as well as indications for ED re-evaluation and additional outpatient follow up <Nicolas Bosch, DO - Last Filed: 11/02/23 18:33> Lab Data Labs: Lab Results 11/02/23 11/02/23 Range/Units 17:00 17:13 WBC 6.5 (4.5-11.0) X10^3/uL RBC 4.21 (4.0-5.2) X10^6/uL Hgb 10.8 L (12.0-16.0) g/dL Hct 32.0 L (36-46) % MCV 76.1 L (80-100) fL MCH 25.7 L (26-34) PG MCHC 33.8 (30-36) % RDW 16.7 H (11.6-14.8) % Plt Count 348 (150-400) X10^3/uL Neut % (Auto) 55.0 (50-75) % Lymph % (Auto) 30.0 (25-40) % [place] % (Auto) 12.5 (3-14) % Eos % (Auto) 1.7 L (2-4) % Baso % (Auto) 0.8 (0-2) % Neut # (Auto) 3600 (2189-5629) /uL Lymph # (Auto) 2000 (6104-9206) /uL [place] # (Auto) 800 (0-900) /uL Eos # (Auto) 100 (0-450) /uL Baso # (Auto) 100 (0-100) /uL Sodium 137 (137-145) mmol/L Potassium 4.1 (3.4-5.1) mmol/L Chloride 103 (98-107) mmol/L Carbon Dioxide 26 (22-32) mmol/L BUN 5 L (7-17) mg/dL Creatinine 0.54 (0.52-1.04) mg/dL Estimated GFR > 60 (>60) mL/min BUN/Creatinine Ratio 9.3 (6-22) Glucose 90 (70-100) mg/dL Calcium 9.3 (8.4-10.2) mg/dL Total Bilirubin 0.4 (0.2-1.3) mg/dL AST 22 (14-36) IU/L ALT 11 (<35) IU/L Alkaline Phosphatase 93 (38-126) U/L Total Protein 8.0 (6.3-8.2) g/dL Albumin 4.0 (3.5-5.0) g/dL Globulin 4.0 (1.7-4.1) g/dL Albumin/Globulin Ratio 1.0 (1.0-2.8) Chlamy pneumoniae PCR Not detected (Not Detect) Adenovirus (PCR) Not detected (Not Detect) B.parapertussis DNA PCR Not detected (Not Detecte) Coronavirus OC43 (PCR) Not detected (Not Detect) Coronavirus HKU1 (PCR) Not detected (Not Detect) Coronavirus 229E (PCR) Not detected (Not Detect) SARS-CoV-2 (PCR) Not detected (Not Detecte) Coronavirus NL63 (PCR) Not detected (Not Detect) Human Metapneumovir PCR Not detected (Not Detect) Influenza Type A (PCR) Not detected (Not Detect) Influenza Type B (PCR) Not detected (Not Detect) M. pneumoniae (PCR) Not detected (Not Detect) Parainfluenza 1 (PCR) Not detected (Not Detect) Parainfluenza 2 (PCR) Not detected (Not Detect) Parainfluenza 3 (PCR) Not detected (Not Detect) Parainfluenza 4 (PCR) Not detected (Not Detect) RSV (PCR) Not detected (Not Detect) Entero/Rhino (PCR) Not detected (Not Detect) Discharge Plan Departure Patient Disposition: Home Clinical Impression: Cough Activity Restrictions/Additional Instructions: Thank you for coming to the [facility] Emergency Department today. As we discussed your COVID, flu, RSV testing as well as multiple other viruses all tested negative. Your chest x-ray was unremarkable, no evidence of pneumonia. Your EKG showed no irregular heart rhythms. Your physical exam was reassuring. Your lab work was also reassuring. Your electrolytes were all within normal limits in UR infection markers were normal as well. Your lab work did show baseline anemia which appears to be baseline for you. Please speak with your primary care provider for further workup regarding this. This maybe due to your baseline chronic anxiety. Please speak with the primary care provider about your symptoms. Please return to the emergency department if you develop any significant new shortness of breath, chest pain or any other concerning signs or symptoms. I hope you feel better soon. Please follow up with your primary care provider within a week if your symptoms continue. If you do not have a primary care provider please contact the [facility] Resource line at [phone]. They will ask some questions about your medical history and help you get set up with a provider in the community. Prescriptions: No Action venlafaxine 75 mg capsule,extended release 24hr 75 mg PO DAILY Qty: 30 3RF tizanidine 4 mg capsule 4 mg PO TID PRN (Reason: muscle spasticity) Qty: 90 1RF Hold Instructions: tramadol 50 mg tablet 100 mg PO BID PRN (Reason: pain) Qty: 120 0RF promethazine 25 mg tablet 25 mg PO TID PRN (Reason: nausea and vomiting) Qty: 90 3RF alprazolam 0.25 mg tablet 0.25 - 0.5 mg PO BID PRN (Reason: Panic symptoms) Qty: 10 5RF tramadol 50 mg tablet 100 mg PO BID PRN (Reason: pain) Qty: 120 0RF benzonatate 200 mg capsule 200 mg PO TID PRN (Reason: cough) Qty: 30 0RF albuterol sulfate 90 mcg/actuation HFA aerosol inhaler 2 puff inhalation Q4-6H PRN (Reason: shortness of breath or wheezing) Qty: 6.7 0RF acetaminophen 325 mg tablet 2 tab PO Q6H PRN (Reason: Pain, Mild) Referrals: Roopa Fowler MD [Primary Care Provider] - Stand Alone Forms: Patient Portal/API ED Sign-out <Nicolas Bosch DO - Last Filed: 11/02/23 18:33> Cosign ED Attending Cossofiyaature Attestation: Dr Bosch Co-Sign Statement: I was available for consultation during this patient's emergency department visit. This chart is signed by myself for administrative purposes only. I did not have direct contact with this patient during this visit. They were seen independently by the APC.
[2023-11-02] MEDS: ACETAMINOPHEN 325 MG TABLET 650 MG PO (17:06)
[2023-11-02 17:27] LABS: Add Manual Diff / Slide Review NO; Basophils Absolute Auto 100 /uL (0-100); Basophils Percent Auto 0.8 % (0-2); Eosinophils Absolute Auto 100 /uL (0-450); Eosinophils Percent Auto 1.7 % (2-4); Hemoglobin 10.8 g/dL (12.0-16.0); Lymphocytes Absolute Auto 2000 /uL (1100-4500); Mean Corpuscular HGB Conc 33.8 % (30-36); Mean Corpuscular Hemoglobin 25.7 PG (26-34); Mean Corpuscular Volume 76.1 fL (80-100); Monocytes Absolute Auto 800 /uL (0-900); Monocytes Percent Auto 12.5 % (3-14); Neutrophils Absolute Auto 3600 /uL (1500-7000); Platelet Count 348 X10^3/uL (150-400); Red Blood Cell Count 4.21 X10^6/uL (4.0-5.2); Red Cell Distribution Width 16.7 % (11.6-14.8); White Blood Cell Count 6.5 X10^3/uL (4.5-11.0)
[2023-11-02 17:31] LABS: Alanine Aminotransferase 11 IU/L (<35); Alkaline Phosphatase 93 U/L (38-126); Aspartate Aminotransferase 22 IU/L (14-36); BUN Creatinine Ratio 9.3 (6-22); Bilirubin Total 0.4 mg/dL (0.2-1.3); Blood Urea Nitrogen 5 mg/dL (7-17); Calcium 9.3 mg/dL (8.4-10.2); Carbon Dioxide 26 mmol/L (22-32); Chloride 103 mmol/L (98-107); Estimated Glomerular Filt Rate > 60 mL/min (>60); Glucose 90 mg/dL (70-100); HEMOLYSIS < 15 (0-50); Potassium 4.1 mmol/L (3.4-5.1); Sodium 137 mmol/L (137-145)
[2023-11-02 17:56] LABS: Adenovirus Not Detected (Not Detect); B. parapertussis Not Detected (Not Detecte); Bordetella pertussis Not Detected (Not Detect); Chlamydophila pneumoniae Not Detected (Not Detect); Coronavirus 229E Not Detected (Not Detect); Coronavirus HKU1 Not Detected (Not Detect); Coronavirus NL 63 Not Detected (Not Detect); Coronavirus OC43 Not Detected (Not Detect); Human Metapneumovirus Not Detected (Not Detect); Human Rhinovirus/Enterovirus Not Detected (Not Detect); Influenza A Not Detected (Not Detect); Influenza B Not Detected (Not Detect); Mycoplasma pneumoniae Not Detected (Not Detect); Parainfluenza Virus 1 Not Detected (Not Detect); Parainfluenza Virus 2 Not Detected (Not Detect); Parainfluenza Virus 3 Not Detected (Not Detect); Parainfluenza Virus 4 Not Detected (Not Detect); Respiratory Syncytial Virus Not Detected (Not Detect); SARS- CoV-2 Not Detected (Not Detecte)
[2023-11-02 18:23] VITALS: BP 113/62; PULSE 85; RESP 18; TEMP 36.7; O2SAT 98
== END 2023-11-02 18:31 | disposition home or self-care (01) ==
PROVIDERS: Emergency Provider Physician Assistant Medical; PCP Student in an Organized Health Care Education/Training Program
DX: R05.9 Cough, unspecified (principal); R50.9 Fever, unspecified; R11.0 Nausea; R00.2 Palpitations; Z20.822 Contact with and (suspected) exposure to COVID-19
CPT/HCPCS: 36415; 71046; 80053; 85025; 87633; 93005; 99283; 99284

== ENCOUNTER → 2024-10-26 13:24 | Outpatient (CLI) | payer OTHER, SELFPAY ==
--- NOTE | 2024-10-26 13:28 | DI.MG.S_ITS ---
BILATERAL DIGITAL DIAGNOSTIC MAMMOGRAM 3D/2D: 10/26/2024 CLINICAL: Right breast lump. Comparison is made to exam dated: 10/08/2018 mammogram - [facility]. The breasts are heterogeneously dense, which may obscure small masses (category c / 51-75% glandular tissue). There is a focal asymmetry in the right breast at 11 o'clock posterior depth. This correlates as palpated. No other significant masses, calcifications, or other findings are seen in either breast. IMPRESSION: INCOMPLETE: NEED ADDITIONAL IMAGING EVALUATION The focal asymmetry in the right breast is indeterminate. An ultrasound is recommended. There is no abnormality seen in either breast to correspond with the non-bloody discharge from the nipple, however, ultrasound is recommended. Based on the Tyrer Cuzick model (a risk assessment model) the patient's lifetime risk is 9.2% and her 10 year risk is 0.8%. According to the ACR, ACS, and NCCN guidelines, an annual breast MRI exam along with mammogram is recommended if the patient's lifetime risk is 20% or greater. This exam was interpreted at Station ID: [id number]. NOTE: For mammograms, a report in lay terms will be sent to the patient. Approximately 15% of breast malignancies will not be visualized mammographically. In the management of a palpable breast mass, a negative mammogram must not discourage biopsy of a clinically suspicious lesion. Electronically Signed By: Abram muñoz/kaleb:10/26/2024 15:35:31 letter sent: Additional Imaging Needed ACR BI-RADS Category 0: Incomplete: Need Additional Imaging Evaluation
--- NOTE | 2024-10-26 13:28 | DI.US.S_ITS ---
LIMITED ULTRASOUND OF RIGHT BREAST AND AXILLA: 10/26/2024 CLINICAL: Palpable right breast lump + green nipple discharge (not spontaneous). Comparison is made to exams dated: 10/26/2024 mammogram and 10/08/2018 mammogram - [facility]. Color flow and real-time ultrasound of the right breast 11 o'clock, retroareolar, and axilla regions were performed. Bautista scale images of the real-time examination were reviewed. There is a 1.9 cm x 0.9 cm x 0.7 cm oval mass with a microlobulated margin in the right breast at 11 o'clock middle depth 7 cm from the nipple. This oval mass is hypoechoic. This correlates as palpated and with mammography findings. No significant abnormalities were seen sonographically in the right axilla. IMPRESSION: SUSPICIOUS The 1.9 cm x 0.9 cm x 0.7 cm oval mass in the right breast is suspicious of malignancy. An ultrasound guided biopsy is recommended. This corresponds as palpated. There is no abnormality seen in the right breast to correspond with the non-bloody discharge from the nipple, however, clinical correlation and clinical followup are recommended. (Please note left breast ultasound is pending and is separately reported). This exam was interpreted at Station ID: [id number]. Electronically Signed By: Abram Street M.D. lc/:10/26/2024 15:35:08 letter sent: Biopsy Required ACR BI-RADS Category 4: Suspicious
== END ==
PROVIDERS: PCP Student in an Organized Health Care Education/Training Program; Referring Provider Student in an Organized Health Care Education/Training Program; Visit Provider Student in an Organized Health Care Education/Training Program
DX: R92.8 Other abnormal and inconclusive findings on diagnostic imaging of breast (principal); N63.11 Unspecified lump in the right breast, upper outer quadrant; R92.333 Mammographic heterogeneous density, bilateral breasts
CPT/HCPCS: 76642; 77066; G0279

== ENCOUNTER → 2024-11-04 16:03 | Outpatient (CLI) | payer OTHER, SELFPAY ==
[2024-11-04 18:35] LABS: Prolactin 56.1 ng/mL (3.0-18.6)
== END ==
LOC: LAB 16:04
PROVIDERS: PCP Student in an Organized Health Care Education/Training Program; Referring Provider Student in an Organized Health Care Education/Training Program; Visit Provider Student in an Organized Health Care Education/Training Program
DX: N64.52 Nipple discharge (principal)
CPT/HCPCS: 36415; 84146

== ENCOUNTER → 2024-11-10 13:23 | Outpatient (CLI) | payer OTHER, SELFPAY ==
--- NOTE | 2024-11-10 | PATH_ITS ---
[facility] Accession Number: [id number] No. of containers..01 Tissue . 01 Material submitted: . breast - RIGHT BREAST 11:00 . 01 Clinical history: . RIGHT BREAST 11:00 7CMFN MASS . 01 Diagnosis: RIGHT BREAST 11 O'CLOCK, 7 CM FN MASS, IMAGE-GUIDED BIOPSIES: Benign breast parenchyma with fibroadenomatoid changes, and focal benign vascular proliferation, possibly representing a small hemangioma. Negative for atypia or malignancy. MRV 11/12/2024 1456 Local . 01 Comment: As part of ongoing air quality manager, this case is also reviewed by Dr. Clary Lewis, who agrees with the interpretation. . 01 Electronically signed: . Cameron Alaniz MD, Pathologist NPI- [id number] . 01 Gross description: . Received in formalin with two identifiers and right breast biopsy, are multiple yellow to thomas soft tissue fragments admixed with hemorrhagic material aggregating to 1.7 x 1.5 x 0.2 cm. Inked black, filtered, and submitted entirely in cassette A1. . The specimen was removed on 11/10/2024 at 1521 hours. Time in formalin not provided. Cold ischemic time cannot be calculated. Total fixation time is approximately 26 hours. ([id number]) /JAVI 11/11/2024 1009 Local . 01 Pathologist provided ICD-10: R92.8 . 01 CPT . 995662 Performed at: [address] [id number] MD Checo Restrepo MD Phone: [phone]
--- NOTE | 2024-11-10 | DI.US.S_ITS ---
LIMITED ULTRASOUND OF LEFT BREAST: 11/10/2024 CLINICAL: Non-spontaneous Nipple discharge, left breast, green, x 6 yrs. Comparison is made to exams dated: 10/26/2024 mammogram and 10/08/2018 mammogram - [facility]. Real-time ultrasound of the left breast retroareolar was performed. Bautista scale images of the real-time examination were reviewed. No sonographic abnormality is seen in the area of clinical concern in the left retroareolar region. IMPRESSION: NEGATIVE No sonographic abnormality in the area of clinical concern. No sonographic evidence of malignancy. Recommend routine screening mammogram starting at age 40. Nipple discharge that is non-spontaneous and bilateral or from multiple ducts in the same breast is typically benign or physiologic. Clinical follow-up is recommended, and further management of nipple discharge should be based on the results of clinical evaluation. If nipple discharge persists and/or increases in clinical suspicion, further clinical evaluation should be considered. Findings and recommendations were conveyed to the patient during today's evaluation. This exam was interpreted at Station ID: [id number]. Electronically Signed By: Davida Freeman M.D., Ph.D. eb/:11/12/2024 16:45:34 letter sent: Clinical Evaluation ACR BI-RADS Category 1: Negative
--- NOTE | 2024-11-10 13:24 | DI.US.S_ITS ---
ULTRASOUND GUIDED BIOPSY RIGHT BREAST USING VACUUM DEVICE WITH MARKING DEVICE INSERTED: 11/10/2024 CLINICAL: Right breast mass. PATIENT CONSENT: Risks (minor bleeding, infection, vasovagal reaction and repeat procedure), benefits and alternatives were explained to the patient and written informed consent was obtained. Correlation is made to exams dated: 10/26/2024 ultrasound and 10/26/2024 mammogram - [facility]. An ultrasound guided biopsy using real-time ultrasound was performed for the 1.9 cm x 0.9 cm x 0.7 cm mass located in the right breast at 11 o'clock middle depth 7 cm from the nipple. The skin was prepped in the usual manner. A biopsy needle was placed adjacent to the abnormality under ultrasound guidance. Once the needle was documented to be in the correct location, a specimen was obtained using a vacuum assisted device. A clip was inserted into the biopsy cavity. The specimen was sent to the laboratory for pathological analysis. IMPRESSION: ULTRASOUND GUIDED BIOPSY BENIGN Ultrasound guided biopsy of the 1.9 cm x 0.9 cm x 0.7 cm mass in the right breast at 11 o'clock middle depth 7 cm from the nipple was successful. Pathology indicates benign fibroadenomatoid changes and focal benign vascular proliferation, possibly representing a small hemangioma. Pathology results are concordant with imaging findings. Recommend routine screening mammogram starting at age 40. This exam was interpreted at Station ID: [id number]. Mike Freeman M.D., Ph.D. jarrod/:11/16/2024 08:04:00
== END ==
PROVIDERS: PCP Student in an Organized Health Care Education/Training Program; Referring Provider Student in an Organized Health Care Education/Training Program; Visit Provider Student in an Organized Health Care Education/Training Program
DX: N63.12 Unspecified lump in the right breast, upper inner quadrant (principal); R93.89 Abnormal findings on diagnostic imaging of other specified body structures; R92.8 Other abnormal and inconclusive findings on diagnostic imaging of breast
CPT/HCPCS: 19083; 76642

== ENCOUNTER → 2024-11-16 07:48 | Outpatient (CLI) | payer OTHER, SELFPAY ==
--- NOTE | 2024-11-16 07:49 | DI.MRI.S_ITS ---
PROCEDURE: MR BRAIN (PITUITARY) WWO CON INDICATIONS: elevated prolactin TECHNIQUE: Noncontrast sagittal and axial FLAIR, axial gradient echo, axial diffusion and ADC through the brain. Thin-slice sagittal and coronal T1 spin echo, coronal T2 fast spin echo through the pituitary. After the administration contrast, optional dynamic coronal T1 spin echo, thin-slice coronal and sagittal T1 spin echo images through the pituitary fossa; axial and coronal and sagittal T1 spin echo with fat saturation through the brain. COMPARISON: None. FINDINGS: Image quality: Excellent. Pituitary Gland: Pituitary gland demonstrates normal size and contour. There is a small, approximately 3 millimeter focus of slightly degrade postcontrast enhancement in the anterior left margin of the pituitary gland that may reflect a pituitary microadenoma. No suprasellar mass. Infundibulum is midline with normal contours and demonstrates normal postcontrast enhancement. Optic chiasm is normal. Cavernous sinus demonstrates normal postcontrast enhancement. CSF Spaces: Ventricles are normal in size and shape. Basal cisterns are patent. No extra-axial fluid collections. Brain: No intracranial bleeds or mass effects. No abnormal intracranial enhancement. Bautista-white matter interface is intact. Diffusion weighted images demonstrate no acute ischemic insults. Brainstem is normal. Normal intravascular flow voids are present. Skull and face: Calvarial marrow is normal in signal. Orbits appear normal. Sinuses: Sinuses and mastoids are clear. IMPRESSION: 3 millimeter focus of slightly delayed postcontrast enhancement in the anterior left pituitary gland may represent a microadenoma. Dictated by: Malina Nowak MD, PhD on 11/16/2024 at 9:29 Approved by: Malina Nowak MD, PhD on 11/16/2024 at 9:39
== END ==
PROVIDERS: PCP Student in an Organized Health Care Education/Training Program; Referring Provider Student in an Organized Health Care Education/Training Program; Visit Provider Student in an Organized Health Care Education/Training Program
DX: R79.89 Other specified abnormal findings of blood chemistry (principal)
CPT/HCPCS: 70553; A9579

== ENCOUNTER 2025-01-05 17:21 | Emergency (ER) | payer OTHER, SELFPAY ==
[2025-01-05 17:25] VITALS: BP 121/74; PULSE 80; RESP 16; TEMP 37.1; O2SAT 100; BMI 29.2
== END 2025-01-05 19:54 | disposition left against medical advice (07) ==
PROVIDERS: Emergency Provider Student in an Organized Health Care Education/Training Program; PCP Student in an Organized Health Care Education/Training Program
CPT/HCPCS: 99281

== ENCOUNTER 2025-05-18 17:05 | Emergency (ER) | payer OTHER, SELFPAY ==
[2025-05-18 17:14] VITALS: BP 123/80; PULSE 93; RESP 14; TEMP 36.9; O2SAT 100; BMI 27.4
--- NOTE | 2025-05-18 19:41 | ED_ITS ---
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 No other areas of rash, no vesicles. No punctures scratched her itching. No hives. Related Data Home Medications ?Medication ?Instructions ?Recorded ?Confirmed acetaminophen 2 tab PO Q6H PRN Pain, Mild 09/26/20 01/06/25 Previous Rx's ?Medication ?Instructions ?Recorded albuterol sulfate 90 mcg/actuation 2 puff inhalation Q 4-6H PRN 10/29/23 aerosol inhaler shortness of breath or wheez ing #6.7 grams hydroxyzine HCl 10 mg tablet 10 mg PO TID PRN Anxiety #90 tabs 11/09/24 alprazolam 0.25 mg tablet 0.25 - 0.5 mg (1 - 2 x 0.25 mg) PO 11/14/24 BID PRN Panic symptoms #20 tabs duloxetine 60 mg capsule,delayed 60 mg PO DAILY #90 ca ps 01/27/25 release buspirone 5 mg tablet 20 mg (4 x 5 mg) PO DAILY #1 20 tabs 03/01/25 tizanidine 4 mg capsule 4 mg PO TID PRN muscle spast icity 03/01/25 #90 caps promethazine 25 mg tablet 25 mg PO 3XD PRN for 5 nausea/vomiting #60 tabs tramadol 50 mg tablet 100 mg (2 x 50 mg) PO BID MA N pain 05/03/25 #120 tabs cephalexin 500 mg capsule 500 mg PO QID 7 days #28 cap s 05/18/25 Allergies Allergy/AdvReac Type Severity Reaction Status Date / Time No Known Drug Allergies Allergy Verified 05/18/25 17:14 Patient History Medical History Ectopic H/O nephrolithotomy with removal of calculi Endometrial polyp Hydrosalpinx PTSD (post-traumatic stress disorder) (~2015) Anxiety (~2015) Chicken pox (~1990) Kidney stones (~2012) Ectopic Depression (~2014) Surgical History Hx of breast reduction, elective H/O dilation and curettage Anesthesia Status post laparoscopic surgery (~09/2018) History of surgery (~12/2014) History of ankle surgery (~04/2008) History of section (~08/2007) History of appendectomy (~09/1999) Family History Brother Hypertension Hyperlipidemia Mental health problem Grandfather Congestive heart failure Diabetes mellitus Hypertension Hyperlipidemia Stroke Grandmother Mental health problem Grandfather Cancer Diabetes mellitus History of heart disease Grandmother Diabetes mellitus Congestive heart failure Hyperlipidemia Hypertension Stroke Mother Hypertension Social History household members: spouse Smoking Status: Former smoker alcohol intake: former Smoking Status: Former smoker alcohol intake frequency: holidays/special occasions only Exam Narrative Exam Narrative: GENERAL: Well-developed patient, in mild distress. HEAD: Atraumatic. Normocephalic. EYES: Pupils equal round and reactive. Extraocular motions intact. No scleral icterus. No injection or drainage. ENT: Nose without bleeding, purulent drainage. Throat without erythema, tonsillar hypertrophy or exudate. Airway patent. NECK: Trachea midline. Non tender CARDIOVASCULAR: Regular rate and rhythm without murmurs, gallops, or rubs. RESPIRATORY: Clear to auscultation. Breath sounds equal bilaterally. No wheezes, rales, or rhonchi. Breast: Right symptomatic breast with 4 x 1-1/2 cm superficial skin erythema without induration or expressible fluid or fluctuance or crepitance, no other breast lesions, no expressible pus or blood from nipple, no axillary lymphadenopathy on exam ipsilateral. No dimpling of the breast. No vesicles. GASTROINTESTINAL: Abdomen soft, non-tender, nondistended. EXTREMITIES: No edema or joint tenderness. NEURO: AOx3. Motor functions grossly nonfocal. SKIN: No rash or erythema of visible areas, right lateral breast cellulitis skin changes noted above. Initial Vital Signs Initial Vital Signs: Vital Signs Temperature 98.4 F 08/13/25 17:14 Pulse Rate 93 H 05/18/25 17:14 Respiratory Rate 14 05/18/25 17:14 Blood Pressure 123/80 05/18/25 17:14 Pulse Oximetry 100 05/18/25 17:14 Oxygen Delivery Method Room Air 05/18/25 17:14 Course Orders Ordered: Discontinued Medications Cephalexin HCl (Cephalexin 250 Mg Capsule) 500 mg PO NOW ONE Stop: 05/18/25 19:57 Last Admin: 05/18/25 20:01 Dose: 500 mg Documented By: Vital Signs Vital signs: Vital Signs - 8 hr 05/18/25 20:08 Temperature 98.2 F Pulse Rate 69 Respiratory Rate 19 Blood Pressure 133/78 Pulse Oximetry 98 Oxygen Delivery Method Room Air MDM - Skin/Abscess/Foreign Bdy MDM Narrative Medical decision making narrative: 39-year-old female with right breast redness and pain, no injury sting or bite recalled. On examination has area of erythema consistent with cellulitis, no vesicles. No induration or tenderness or underlying mass. No ultrasound indicated at this time. Consistent with cellulitis. Afebrile. Doubt breast abscess at this time clinically. Trial of oral antibiotics. First dose of cephalexin given in the emergency department, prescription for further cephalexin prescription sent to her pharmacy. Advised [id number] Tylenol and or Motrin for pain control. Recheck advised in clinic with your regular doctor in the next couple of days. Return precautions discussed. Discharge Plan Departure Patient Disposition: Home Clinical Impression: Cellulitis Activity Restrictions/Additional Instructions: Painful fairly small red skin lesion lateral aspect mid right breast, without other lesions, without palpable masses. No fever on triage. No definite injury bite or sting known. The area of redness does not have any vesicles, does not appear consistent with shingles at this time, but if other rash appears at brought her aspect, this could be early shingles rash. We will treat with antibacterials for cellulitis skin infection at this time. There is no induration or mass effect on examination, hold deeper tissue ultrasound of the breast for now. Trial of antibiotic Keflex. First dose given in the emergency department, further doses sent by prescription to your pharmacy. Take antibiotics as directed. Recheck exam with your regular provider in the next couple of days. Return earlier for any change worsening symptoms or any co ncerns prior. Prescriptions: New cephalexin 500 mg capsule 500 mg PO QID 7 Days Qty: 28 0RF No Action hydroxyzine HCl 10 mg tablet 10 mg PO TID PRN (Reason: Anxiety) Qty: 90 0RF Rx Instructions: Take 10 mg up to 3 times daily as needed for anxiety. Can take 25 mg at bedtime as needed. alprazolam 0.25 mg tablet 0.25 - 0.5 mg PO BID PRN (Reason: Panic symptoms) Qty: 20 0RF duloxetine 60 mg capsule,delayed release(DR/EC) 60 mg PO DAILY Qty: 90 3RF buspirone 5 mg tablet 20 mg PO DAILY Qty: 120 3RF Rx Instructions: Take 2 tabs in the Morning, Take 2 tabs in the evening for total of 20mg per day tizanidine 4 mg capsule 4 mg PO TID PRN (Reason: muscle spasticity) Qty: 90 1RF promethazine 25 mg tablet 25 mg PO 3XD PRN (Reason: for nausea/vomiting) Qty: 60 0RF tramadol 50 mg tablet 100 mg PO BID PRN (Reason: pain) Qty: 120 5RF albuterol sulfate 90 mcg/actuation HFA aerosol inhaler 2 puff inhalation Q4-6H PRN (Reason: shortness of breath or wheezing) Qty: 6.7 0RF acetaminophen 325 mg tablet 2 tab PO Q6H PRN (Reason: Pain, Mild) Referrals: Roopa Fowler MD [Primary Care Provider, Family Practice] Stand Alone Forms: Patient Portal/API
[2025-05-18 20:08] VITALS: BP 133/78; PULSE 69; RESP 19; TEMP 36.8; O2SAT 98
== END 2025-05-18 20:12 | disposition home or self-care (01) ==
PROVIDERS: Emergency Provider Emergency Medicine; PCP Student in an Organized Health Care Education/Training Program
DX: N61.0 Mastitis without abscess (principal)
CPT/HCPCS: 99283